=== PATIENT | female | born 1980 | race Caucasian/White ===

== ENCOUNTER 2021-04-10 07:00 | Emergency (ER) | payer OTHER, SELFPAY ==
[2021-04-10 07:04] VITALS: BP 130/78; PULSE 78; RESP 18; TEMP 36.9; O2SAT 98; BMI 35.9
--- NOTE | 2021-04-10 07:28 | US_ITS ---
STUDY: ABDOMINAL ULTRASOUND - RIGHT UPPER QUADRANT REASON FOR VISIT: Female, 40 years old right upper quadrant pain. TECHNIQUE: Ultrasound evaluation of the right upper quadrant was performed with real-time and static beltran-scale imaging. TECHNICAL QUALITY: Adequate. COMPARISON: None. FINDINGS: Liver: The liver is enlarged and measures 18.7 cm. There is normal echogenicity of the liver. The bile ducts are within normal limits. There is hepatic color flow. The direction of portal flow is hepatopetal. There is no demonstrated mass lesion. Gallbladder: Normal distended gallbladder. The gallbladder wall measures 1.9 mm. There is a negative sonographic Loaiza''s sign. There is no pericholecystic fluid. There are no gallstones. Common Bile Duct (C.B.D.): The common bile duct measures 2.6 mm. Pancreas: Normal size of the head, body and tail of the pancreas. There is normal echogenicity of the pancreas. There is no demonstrated pancreatic mass or cyst. Right Kidney: Normal size of the right kidney. The right kidney measures 12.2 cm x 4.5 cm x 4.3 cm. Normal renal cortex. The right cortex measures 1.3 cm. There is no demonstrated renal mass or cyst. There is no right hydronephrosis. US/Gallbladder IMPRESSION: Hepatomegaly. Electronically Signed: Blayne Whiting MD at 8:41 EST , Service support ,
--- NOTE | 2021-04-10 07:30 | ED.VIS.GI ---
HPI HPI - GI History of Present Illness Chief Complaint: Abd Pain Informant: patient Abdominal Pain/Flank Pain Onset: Days (5) Context: Gradual Onset Timing: Continuous Quality: Dull and Sharp Location: RUQ Worsened by: Food Relieved by: Nothing Nausea/Vomiting/Emesis GI Symptom: Positive for Nausea; Negative for Vomiting Diarrhea/Melena/Hematochezia GI Symptom: Positive for Diarrhea; Negative for Melena and Hematochezia Associated Symptoms Associated Symptoms: Negative for Dysuria and Hematuria Narrative Narrative: Patient with right upper quadrant abdominal pain that has been constant for the past 2 days. Patient states it has been intermittent for the 3 days prior to that. Patient states it is worse whenever she eats. Patient states the pain radiates into her back. Patient states her pain is a constant ache but sharp at times. Patient admits to nausea but denies any vomiting. Patient admits to some diarrhea. Patient denies any melena or hematochezia. Patient denies any dysuria or hematuria. [facility] Medical History Asthma Endometriosis Home Medications Clarinex 04/10/21 [History Last Taken Unknown] Crestor 04/10/21 [History Last Taken Unknown] Singulair 04/10/21 [History Last Taken Unknown] Vitamin D3 04/10/21 [History Last Taken Unknown] Zoloft 04/10/21 [History Last Taken Unknown] azelastine INTRANASAL 04/10/21 [History Last Taken Unknown] fluticasone propionate INTRANASAL 04/10/21 [History Last Taken Unknown] fluticasone propionate INTRANASAL 04/10/21 [History Last Taken Unknown] omeprazole 20 mg PO DAILY #30 capsule 04/10/21 [Rx Last Taken Unknown] ondansetron 4 mg PO Q8H PRN PRN #10 tab 04/10/21 [Rx Last Taken Unknown] Allergy/AdvReac Type Severity Reaction Status Date / Time sulfamethoxazole Allergy Angioedema Verified 04/10/21 07:08 [From Bactrim] trimethoprim [From Bactrim] Allergy Angioedema Verified 04/10/21 07:08 Surgical History H/O laparoscopy Social History (Updated 04/10/21 @ 07:[address] Kranthi Martins DO) Smoking Status: Never smoker alcohol intake: current alcohol intake frequency: a few times a month ROS ROS ED Constitutional Constitutional ED: Denies chills or fever(s) Eyes Eyes: Denies blurry vision or change in vision ENT ENT ED: Denies rhinorrhea or sore throat Cardiovascular Cardiovascular: Denies chest pain or palpitations Respiratory/Chest Respiratory/Chest: Denies cough or dyspnea Gastrointestinal Gastrointestinal: Reports abdominal pain, diarrhea and nausea; Denies vomiting Genitourinary Genitourinary ED: Denies dysuria or hematuria Musculoskeletal Musculoskeletal: Denies back pain or neck pain Integumentary Denies abscess or rash Neurologic Neurologic: Denies headache(s) or weakness Allergic/Immunologic Allergic/Immunologic ED: Denies mouth swelling or urticaria EXAM Physical Exam Const Vital Signs: 04/10/21 07:04 04/10/21 07:43 04/10/21 09:22 Temperature 98.5 F Temperature Source Temporal Pulse Rate 78 87 69 Respiratory Rate 18 18 18 Blood Pressure 130/78 H 128/74 H 126/84 H Blood Pressure Mean 95 92 98 Pulse Ox 98 99 97 Oxygen Delivery Method Room Air Room Air Room Air Positive well nourished and well developed General Appearance ED: well developed HEENT Reports moist mucous membranes Neck supple and no JVD Resp normal respiratory effort and clear to auscultation bilaterally Cardio regular rate, regular rhythm and no murmurs GI normal to inspection, nondistended, normoactive bowel sounds Palpation: soft and tender RUQ; Negative for guarding or rebound tenderness present Extremity normal to inspection General Extremety ED: Negative for edema or tenderness General Extremity: Negative for edema Neuro oriented x3, CN's II-XII intact bilaterally and no sensory deficits noted Sensorium / Orientation: alert Motor Exam: strength 5/5 throughout Psych mental status grossly normal Skin no rashes or lesions noted MDM MDM MDM Narrative Medical decision making narrative: Patient was given IV fluids, morphine, and Zofran. CBC was within normal limits. Comprehensive metabolic profile was within normal limits. Lipase was normal. Urinalysis does not show any evidence of urinary tract infection. Right upper quadrant ultrasound was obtained. There is hepatomegaly noted. There is a normal gallbladder. There is no wall thickening. There is no Loaiza sign noted. There is no pericholecystic fluid. There are no gallstones noted. There is no ductal dilatation noted. Patient is feeling better on reevaluation. Patient was advised of her findings. Patient was instructed to follow-up with her primary care physician for further evaluation in 3 to 5 days. Patient was instructed to eat a bland diet and advance as tolerated. Patient was given a prescription for omeprazole and Zofran. Patient was instructed to return if worse in any way. Patient understood and was agreeable with the plan. All questions were answered. Lab Data Attestation: I reviewed the patient's lab results. Labs: Laboratory Results - last 24 hr 04/10/21 04/10/21 04/10/21 07:05 07:05 07:50 WBC 8.2 RBC 4.54 Hgb 13.3 Hct 41.4 MCV 91.2 MCH 29.3 MCHC 32.1 RDW Std Deviation 40.8 RDW Coeff of Scot 12.1 Plt Count 377 MPV 8.8 Immature Gran % (Auto) 0.400 Neut % (Auto) 57.4 Lymph % (Auto) 30.2 [place] % (Auto) 8.1 Eos % (Auto) 3.2 Baso % (Auto) 0.7 Absolute Neuts (auto) 4.7 Absolute Lymphs (auto) 2.47 Nucleated RBC % 0 Sodium 139 Potassium 3.7 Chloride 106 Carbon Dioxide 24.0 Anion Gap 9 BUN 7 Creatinine 0.68 Estim Creat Clear Calc 103.98 Est GFR (MDRD) Af Amer 122 Est GFR (MDRD) Non-Af 101 BUN/Creatinine Ratio 10.2 Glucose 90 Calcium 8.7 Total Bilirubin 0.40 AST 12 L ALT 15 Alkaline Phosphatase 45 Total Protein 7.4 Albumin 3.3 Globulin 4.1 Albumin/Globulin Ratio 0.8 L Lipase 71 L Urine Color Yellow Urine Clarity Sl. Cloudy Urine pH 8.0 Ur Specific [place] 1.010 Urine Protein 15 H Urine Glucose (UA) Normal Urine Ketones Negative Urine Occult Blood 25 H Urine Nitrite Negative Urine Bilirubin Negative Urine Urobilinogen Normal Ur Leukocyte Esterase 25 H Urine RBC 0-5 SEEN Urine WBC 0-5 SEEN Ur Squamous Epith Cells 5-10 SEEN Urine Bacteria 1+ Urine Mucus 0 SEEN Radiography Diagnostic Testing: Clinical Impression(s) from Imaging Studies Gallbladder Ultrasound 04/10/21 07:28 IMPRESSION: Hepatomegaly. Electronically Signed: Blayne Whiting MD at 8:41 EST , Service support , Discharge Plan Triage Chief Complaint: Abd Pain ED Provider: Kranthi Martins Dx/Rx/DC Orders Clinical Impression: Right upper quadrant abdominal pain Instructions: ED Abdominal Pain Unkn Cause Fem Prescriptions: New omeprazole [omeprazole] 20 MG capsule 20 mg PO DAILY Qty: 30 RF: 0 ondansetron [ondansetron] 4 MG tablet 4 mg PO Q8H PRN PRN (Reason: Nausea) Qty: 10 RF: 0 No Action azelastine 137 mcg (0.1 %) aerosol,spray INTRANASAL RF: 0 fluticasone propionate 50 mcg/actuation spray,suspension INTRANASAL RF: 0 fluticasone propionate 50 mcg/actuation spray,suspension INTRANASAL RF: 0 Clarinex RF: 0 Crestor RF: 0 Singulair RF: 0 Vitamin D3 RF: 0 Zoloft RF: 0 Primary Care Provider: Monalisa Palomares NP Referrals: Monalisa Palomares NP, [employer] [Primary Care Provider] - 3-5 Days Disposition Disposition: Home, Self Care
[2021-04-10] MEDS: 0.9% Normal Saline 1,000 ML 1000 ML IV (07:36)
[2021-04-10 07:40] LABS: Absolute Lymphocyte Count 2.47 X10^3/uL (0.83-4.51); Absolute Neutrophil Count 4.7 X10^3/uL (2.0-7.7); Basophil# 0.06 X10^3/uL; Basophil% 0.7 % (0-1); Eosinophil# 0.26 X10^3/uL; Eosinophils% 3.2 % (0-5); Hematocrit 41.4 % (37-47); Hemoglobin 13.3 g/dL (12.0-15.0); Lymphocyte # 2.47 X10^3/ul (0.83-4.51); Lymphocyte % 30.2 % (19-41); Mean Corp Hgb Conc 32.1 g/dL (32-36); Mean Corpuscular Hgb 29.3 pg (27.0-32.0); Mean Corpuscular Volume 91.2 fL (81-99); Mean Platelet Vol. 8.8 fl (6.2-12.0); Monocyte# 0.66 X10^3/uL; Monocyte% 8.1 % (0-10); NRBC Flagged by Analyzer 0 % (0-5); Neutrophil % 57.4 % (47-70); Platelet Count 377 K/mm3 (150-450); RBC Distribution Width CV 12.1 % (11.6-14.6); RBC Distribution Width SD 40.8 fl (35.1-43.9); Red Blood Count 4.54 M/mm3 (4.2-5.4); White Blood Count 8.2 K/mm3 (4.4-11.0)
[2021-04-10] MEDS: Ondansetron 4 MG/2 ML Vial IV (07:42)
[2021-04-10] MEDS: Morphine 4 MG/ML Syringe IV (07:42)
[2021-04-10 07:43] VITALS: BP 128/74; PULSE 87; RESP 18; O2SAT 99
[2021-04-10 07:55] LABS: Mucous, Urine 0 SEEN /hpf (<or=2+)
[2021-04-10 07:57] LABS: ALB/GLOB Ratio 0.8 RATIO (0.9-2.4); AST(SGOT) 12 U/L (15-37); Alanine Aminotransfer ALT/SGPT 15 U/L (13-56); Albumin, Serum 3.3 g/dL (3.2-5.0); Alkaline Phosphatase 45 U/L (45-117); Anion Gap 9 (5-15); BUN 7 mg/dL (7-18); BUN/Creat Ratio 10.2 RATIO (10-20); Calcium,Total 8.7 mg/dL (8.5-10.1); Chloride 106 mmol/L (98-107); Creatinine, Serum 0.68 mg/dL (0.55-1.02); EST Glomerular Filtration Rate 101 mL/min (>60); Est Glom Filt Rate - Afr Amer 122 mL/min (>60); Estimated Creatinine Clearance 103.98 ml/min; Globulin 4.1 g/dL (2.2-4.2); Glucose 90 mg/dL (74-106); Lipase 71 U/L (73-393); Potassium 3.7 mmol/L (3.5-5.1); Protein, Total 7.4 g/dL (6.4-8.2); Sodium Level 139 mmol/L (136-145)
[2021-04-10 08:07] LABS: Color, Urine Yellow (Yellow); Glucose, Dipstick Normal (Normal); Ketone-Dipstick Negative (Negative); Leukocyte Esterase-Dipstick 25 /ul (Negative); Nitrite-Dipstick Negative (Negative); Occult Blood-Urine 25 /ul (Negative); Protein-Dipstick 15 mg/dl (Negative); Urine Bilirubin Dipstick Negative (Negative); Urine Clarity Sl. Cloudy (Clear); Urine Urobilinogen Normal (Normal)
[2021-04-10 08:24] LABS: Bacteria 1+ /hpf (None Seen); Red Blood Cells-Urine 0-5 SEEN /hpf (0-5); Squamous Epithelial Cells - UA 5-10 SEEN /hpf (5-10); White Blood Cells 0-5 SEEN /hpf (0-5)
[2021-04-10 09:22] VITALS: BP 126/84; PULSE 69; RESP 18; O2SAT 97
[2021-04-10 10:14] VITALS: PULSE 72; RESP 18
== END 2021-04-10 10:14 | disposition home or self-care (01) ==
PROVIDERS: Emergency Provider Emergency Medicine; PCP Nurse Practitioner Primary Care
DX: R10.11 Right upper quadrant pain (principal); R16.0 Hepatomegaly, not elsewhere classified; R11.0 Nausea; R19.7 Diarrhea, unspecified; J45.909 Unspecified asthma, uncomplicated
CPT/HCPCS: 76705; 80053; 81001; 83690; 85025; 96361; 96374; 96375; 99283; J7030; J2405

== ENCOUNTER 2021-09-16 16:16 | Outpatient (CLI) | payer OTHER, SELFPAY ==
[2021-09-16 18:23] LABS: CRP 4.87 mg/L (0.0-3.0); T4 Total, Thyroxin 12.1 ug/dL (4.8-13.9); Thyroid Stim Hormone (TSH) 1.22 uIU/mL (0.358-3.74)
[2021-09-18 16:09] LABS: Endomysial Antibody IgA Negative (Negative)
[2021-09-18 18:55] LABS: Immunoglobulin A 189 mg/dL (87-352); t-Transglutaminase IgA <2 U/mL (0-3)
== END 2021-09-16 23:59 | disposition home or self-care (01) ==
LOC: MTLAB 16:17
PROVIDERS: PCP Nurse Practitioner Primary Care; Referring Provider Internal Medicine Gastroenterology; Visit Provider Internal Medicine Gastroenterology
DX: R19.7 Diarrhea, unspecified (principal)
CPT/HCPCS: 36415; 82784; 83516; 84436; 84443; 86140; 86255

== ENCOUNTER 2022-12-14 08:00 | Outpatient (RCR) | payer OTHER, SELFPAY ==
--- NOTE | 2022-11-27 16:00 | HP.SP.EV_ITS ---
History History Date of Eval: 11/27/22 Attending Doctor: Referring Doctor: Reason for Referral: DYSPHONIA/RX HERE Medical Diagnosis (from RX): Dysphonia Previous speech therapy: No Other Relevant Medical History/Diagnoses/Surgery: ROBERTO GASCA is a 42 year old female who presents to [facility] on 11/27/22 following a referral from ENT d/t dx of dysphonia. Roberto attending session alone and served as historian. Roberto reporting recent hoarseness, strain, and raspiness following her recent participation in singing with the [employer]. 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 She reports warm ups start at 0700, they have one service, there is a break, and then a second service. Roberto with a hx of asthma and sleep apnea - has a CPAP with a humidifier but uses sparingly. She also has a hx of GERD and takes a PPI. She endorses having to project her voice at home d/t having two s ons and an overall loud household. She sucks on lozenges when her throat feels dry and also uses a numbing spray when her throat feels raspy and in pain. Roberto reports recently having PE tubes placed which has been helpful in improving her hearing and has allowed her to hear her voice at the true volume and also begin breathing through her nose - she used to breathe through her mouth. She also had surgery to correct a deviated septum which has also improved her ability to breathe through her nose. Today is the first time she has participated in speech therapy. Smoking Status: Never smoker Pain Is pain an issue with your current prescribed condition?: No Personal Preferred language: Citizen Of [place] Patient Allergies Allergies Allergies: Allergies sulfamethoxazole [From Bactrim] Allergy (Verified 04/10/21 07:08) Angioedema trimethoprim [From Bactrim] Allergy (Verified 04/10/21 07:08) Angioedema * Pediatric & Adult patients Adult Subjective Voice Informal Questioner Do you scream (anger, sporting event, work, noisy envirmonment): Less than average Do you raise your voice (e.g. parenting, calling from room to room, etc.): Average Do you talk for long periods of time without a break (teacher, woodard): More than average Are you a talker: Average Do you clear your throat: More than average Do you cough: Average Do you sing: More than average How often do you use the telephone: Less than average Do you do impersonations, character voices or unusual sound effects: None Intubation Was the Client intubated: No Intake Coffee (ounces): 40 Alcoholic Beverage Intake Intake: Rarely Objective Voice Observational Assessment Pitch Range in octaves: 2 Maximum Phonation Time in seconds: 6.3 S/Z Ratio: 1.59 Sustained /s/: 10.67 Sustained /z/: 6.67 Greater than 1:4 (indicates dysfunction): Yes CAPE-V CAPE-V CAPE-V Administered: Yes CAPE: The Consensus Auditory-Perceptual Evaluation of Voice (CAPE-V) was developed as a tool for clinical auditory-perceptual assessment of voice. Its primary purpose is to describe the subjective severity of auditory-perceptual attributes of a voice problem, in a way that can be communicated among clinicians. Its secondary purpose is to contribute to hypotheses regarding the anatomic and physiological bases of voice problems and to evaluate the need for additional testing. In terms of severity, Pt is considered MILD between 0-40, MODERATE 40-75, and SEVERE >75. Date: 11/27/22 Overall Severity Overall Severity (n/100): 80 Frequency: Consistent Roughness Roughness (n/100): 85 Frequency: Consistent Breathiness Breathiness (n/100): 65 Frequency: Intermittent Strain Strain (n/100): 95 Frequency: Consistent Pitch Pitch (n/100): 45 Frequency: Consistent Loudness Loudness (n/100): 10 Frequency: Intermittent Comments Vocal Tasks: -: - During vocal tasks, Pt reporting having posterior neck pain when completing low to high pitch glide when reaching the upper register. Denying pain when going from high to low glide. - During a second vocal task of prolonged phonation, Pt using a softer amplitude than her speaking voice observed throughout evaluation however was only able to sustain phonation for an average of 6.3 seconds before ending. It would be suspected given her hx of singing, she would have prolonged closer to 15 seconds which is typical for adults to achieve. When asked how she is able to phrase when singing, Roberto reporting depending on the song she can sustain phonation between 2-3 measures before needing to breathe. Pending the song, a typical adult can sustain 4 measures. - Roberto reports drinking at least 40 oz of coffee throughout the day. On Sundays when she is singing, she will have coffee before she sings, in between services, and potentially again afterwards. Direct education provided re: attempting to substitute water for the coffee to help rehydrate her vocal folds before and during the singing. Pt showing understanding of education. - Roberto endorsing tension in her neck and shoulders. She states she often will hunch her shoulders when she is singing or sitting in a chair in order to hide her bust. 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 Education: -: Direct education provided re: vocal abuse behaviors such as habitual throat clearing, straining when singing, chest breathing vs. diaphragmatic breathing, consumption of dairy-related snacks throughout the day, limited water intake, and increased coffee intake with no balance of water intake. Roberto showing understanding of education. She was reassured all of these changes are not expected to occur at one time which helped ease her nerves. Roberto endorsing pitch breaks when she attempts to hit lower notes following a period of long vocal use. Roberto confirms using a microphone when singing at [employer] and most recently with her PE tube placement feels like she is not projecting as much. Roberto reporting it will usually take her 5 days to recover her voice after singing for [employer] on Sundays - she reports usually feeling better by the following Wednesday. She also reports at times she will strain her voice to reach pitches outside of her range. Provided education that straining is considered a vocal abuse behavior and until she builds up her range it would be beneficial for her voice to stay in a comfortable pitch range. ENT Report: -: Roberto reports the ENT stating no physical abnormalities with her vocal cords. Visit note was provided at the evaluation, however no exam report of the flexible laryngoscopy. Plan to acquire in future visits. Reference: Neuro-QoL instrument Radiation Oncology Patient Plan Plan Plan: Will recommend Roberto for skilled outpatient speech therapy to address mild-moderate deficits in vocal function characterized by dysphonia, vocal tension, and impaired volitional control of respiration. Roberto would benefit from training in identifying instances of vocal abuse, providing vocal hygiene solutions, training in diaphragmatic breathing, and voice facilitation training. Without skilled speech therapy Pt is at risk for continued vocal abuse, chronic hoarseness, and feelings of isolation in a variety of social situations. Recommendations Treatment Warranted: Yes Treatment Warranted: Voice Progress Prognosis: Excellent Frequency Frequency: 1x/Week Duration: 2 Months Goals that are Established Determination:: Goals will be added/modified as deemed necessary and appropriate. Therapy will be discontinued when results of re-evaluation indicate therapy is no longer needed or lack of progress has been documented. Goal #1-5 Goal #1: Roberto will establish volitional control of respiration evidenced by utilization of diaphragmatic breathing to perform sustained phonation tasks including but not limited to holding ah for 15 seconds or 4 bar phrasing within 6 weeks independently. Goal #2: Roberto will utilize voice facilitation and resonance training to reduce hoarseness and vocal recovery period to 1 day within 6 weeks. Goal #3: To reduce vocal fold tension, Roberto will demonstrate relaxation techniques with greater than 90% acc independently. Goal #4: Roberto will demonstrate understanding of behaviors that impact vocal hygiene by charting frequency of instances of unhealthy vocal behaviors (loud talking, throat clearing, coffee intake) as they occur throughout the session/day in 4/5 occurrences independently for 6 weeks of therapy. Education Patient has Indicated that the Following Identified Educational Needs: None The Patient has indicated that they have no educational or learning abilities that may effect their care.: Yes Patient Instruction Patient Education: Diagnosis, Treatment Plan, Goals, Safety Precautions and Home Exercise Program Other Education: See above. Person Taught: Patient Teaching Method: Discussion, Demonstration and Handout Response to teaching: Return demonstration and Verbalize understanding
--- NOTE | 2022-12-14 09:18 | HP.SP.DC_ITS ---
ST Discharge Summary Discharged: Discharge: ROBERTO GASCA is a 42 year old female [facility] d/t concerns with vocal hoarseness. Pt participated in 3 additional sessions targeting diaphragmatic breathing, resonance exercises, and education on vocal health and vocal abuse behaviors. Pt showing competence in education and performing HEP and is appropriate for d/c. Recommending Pt seek vocal lessons to continue with healthy vocal habits and improving overall singing strength. Pt being discharged from speech therapy caseload on this date, 12/14/22, secondary to meeting therapy goals. Thank you for allowing me to participate the care of your Pt. Will reevaluate at Pt?s request following script from physician.
== END 2022-12-14 19:00 | disposition home or self-care (01) ==
LOC: SP 08:00
PROVIDERS: PCP Nurse Practitioner Primary Care; Referring Provider Otolaryngology; Visit Provider Otolaryngology
DX: R49.0 Dysphonia (principal)
CPT/HCPCS: 92507; 92524

== ENCOUNTER → 2023-03-04 | Outpatient (CLI) | payer BC, SELFPAY ==
[2023-03-04 16:43] LABS: Absolute Lymphocyte Count 3.16 X10^3/uL (0.83-4.51); Absolute Neutrophil Count 8.9 X10^3/uL (2.0-7.7); Basophil# 0.07 X10^3/uL; Basophil% 0.5 % (0-1); Eosinophil# 0.19 X10^3/uL; Eosinophils% 1.4 % (0-5); Hematocrit 42.5 % (37-47); Hemoglobin 13.5 g/dL (12.0-15.0); Lymphocyte # 3.16 X10^3/ul (0.83-4.51); Lymphocyte % 23.3 % (19-41); Mean Corp Hgb Conc 31.8 g/dL (32-36); Mean Corpuscular Hgb 29.7 pg (27.0-32.0); Mean Corpuscular Volume 93.4 fL (81-99); Mean Platelet Vol. 8.9 fl (6.2-12.0); Monocyte# 1.18 X10^3/uL; Monocyte% 8.7 % (0-10); NRBC Flagged by Analyzer 0 % (0-5); Neutrophil # 8.88 X10^3/uL (2.7-7.7); Neutrophil % 65.7 % (47-70); Platelet Count 411 K/mm3 (150-450); RBC Distribution Width CV 12.4 % (11.6-14.6); RBC Distribution Width SD 42.7 fl (35.1-43.9); Red Blood Count 4.55 M/mm3 (4.2-5.4); White Blood Count 13.5 K/mm3 (4.4-11.0)
[2023-03-04 18:10] LABS: Thyroid Stim Hormone (TSH) 1.08 uIU/mL (0.358-3.74)
== END | disposition home or self-care (01) ==
LOC: LAB 16:10
PROVIDERS: PCP Nurse Practitioner Primary Care; Referring Provider Advanced Practice Midwife; Visit Provider Advanced Practice Midwife
DX: Z13.29 Encounter for screening for other suspected endocrine disorder (principal); N80.9 Endometriosis, unspecified
CPT/HCPCS: 36415; 84443; 85025

== ENCOUNTER → 2023-04-21 | Outpatient (CLI) | payer BC, SELFPAY ==
--- NOTE | 2023-04-21 10:46 | US_ITS ---
EXAM: US PELVIS TRANSVAGINAL CLINICAL INDICATION: abnormal menses TECHNIQUE: Transvaginal pelvic ultrasound was performed with grayscale and color Doppler imaging. Transvaginal imaging was used for better evaluation of the endometrium and adnexa. COMPARISON: No relevant prior studies available. FINDINGS: UTERUS/CERVIX: Retroverted. There 8.8 cm x 4.3 centimeters by 6.1 cm. No discrete uterine mass is measured but there is heterogeneous mottled appearance of the fundus suggesting fibroid of roughly 2.1 cm x 2.2 cm. Not well seen.. Normal 5.3 mm endometrial stripe thickness the fundus, with a slight amount of anechoic fluid in the endometrium in the proximal uterus. RIGHT OVARY: Unremarkable. 2.6 cm x 1.2 cm x 2.3 cm with tiny follicles. Non-enlarged, normal echogenicity. Blood flow is present in the right ovary. LEFT OVARY: 2 cm x 3.2 cm x 1.9 cm with tiny follicles and a dominant mildly complex follicle of 1 cm x 0.9 cm x 1.1 cm. This has slight low level echoes and slightly irregular thick margins. Likely hemorrhagic follicle or endometrioma. Blood flow is present in the left ovary. FREE FLUID: Trace cul-de-sac fluid. BLADDER: Empty bladder which cannot be evaluated with this probe. US/Transvaginal Non- IMPRESSION: Suspicion of fundal uterine fibroid, not well seen. Mildly complex dominant follicle in the left ovary, measuring 1.1 cm maximum diameter with low level echoes and mildly thick wall. The primary considerations are hemorrhagic dominant follicle or endometrioma. Not particularly suspicious by size criteria. Electronically Signed: Mimi Walker MD at 8:51 EST ,
== END | disposition home or self-care (01) ==
PROVIDERS: PCP Nurse Practitioner Primary Care; Referring Provider Advanced Practice Midwife; Visit Provider Advanced Practice Midwife
DX: N80.9 Endometriosis, unspecified (principal)
CPT/HCPCS: 76830

== ENCOUNTER → 2023-06-01 | Outpatient (CLI) | payer BC, SELFPAY ==
--- NOTE | 2023-06-01 10:06 | US_ITS ---
EXAM: US PELVIS TRANSVAGINAL CLINICAL INDICATION: cyst follow up TECHNIQUE: Transvaginal pelvic ultrasound was performed with grayscale and color Doppler imaging. Transvaginal imaging was used for better evaluation of the endometrium and adnexa. COMPARISON: 04/21/2023 FINDINGS: UTERUS/CERVIX: Uterus measures 9.7 x 4.3 x 5.7 cm. The endometrium measures 4 mm. RIGHT OVARY: The right ovary measures 3.1 x 1.2 x 1.9 cm. Blood flow is present in the right ovary. LEFT OVARY: The left ovary measures 2.0 x 1.8 x 1.9 cm. There is a 0.9 x 0.7 x 1.2 cm cyst in the left ovary. There is a heterogeneous area in the fundus possibly representing a fibroid. Blood flow is present in the left ovary. FREE FLUID: None. BLADDER: Empty bladder which cannot be evaluated with this probe. US/Transvaginal Non- IMPRESSION: Left ovarian cystic structure which may represent a follicle or cyst is not significantly changed from the reference exam. Heterogeneous area in the fundus of uterus is again present possibly representing a fibroid. There has been no change from the reference exam. Electronically Signed: Aaron Morton MD at 23:03 EST ,
--- OUTSIDE RECORDS SUMMARY | 2023-06-01 10:34 | XMS RPT_ITS | CCD ---
Author Name Unknown Address [id number] [place] [address] Organization [facility] Care Team Providers Care Underwriter Solicitation Director Name Role Phone Sophia Medellin Primary Care Provider DR SOPHIA MEDELLIN MD Primary Care Physician JASON ALBERTO, SILAS Primary Care Physician Sophia Medellin MD Primary Care Provider Unavailable Primary Care Provider GIOVANNI Garrett DO Primary Care Physician [phone] JASON ALBERTO, SILAS Primary Care Nj ALBERTO, SILAS Attending Nj ALBERTO, DEB Attending GOIVANNI Garrett DO Primary Care Unavailable GIOVANNI MALDONADO DO Primary Care Unavailable [place] REMY, DEB Attending GIOVANNI Garrett DO Primary Care Unavailable [place] REMY, DEB Attending Mike ALBERTO, SILAS Primary Care Nj ALBERTO, SILAS Attending Nj goel Allergies Allergy Classification Reported Allergen(s) Allergy Type Date of Onset Reaction(s) Facility Sulfamethoxazole / Trimethoprim (3 sources) Sulfamethoxazole / Trimethoprim Drug Allergy 06-17-19 16 Sw[facility] ([facility] rosuvastatin Drug Allergy 01-03-20 19 Rash [place], [place] (18 sources) Sulfamethoxazole / Trimethoprim; Translations: [sulfamethoxazole-t rimethoprim] Drug Allergy 06-17-19 16 [place], [place] (6 sources) seasonal enviromental Allergy to substance typical [facility] (2 sources) Doxycycline; Translations: [doxycycline] Drug Allergy Chest pain (finding) [facility] [place] (2 sources) FLUoxetine; Translations: [fluoxetine] Drug Allergy Upset stomach (finding) [facility] [place] Medications Current Medications Medication Drug Class(es) Dates Sig (Normalized) Sig (Original) Afrin 0.05% nasal Mist (4 sources) Start: 11-22-2020 take 1 dose nasal route twice daily as needed Afrin 0.05% nasal Mist Dose = 2 spray(s), Nostril, each, BID, PRN Sinus symptoms, 0 Refill(s) Start Date: 11/22/20 Status: Ordered [id number] 200 actuat albuterol 0.09 mg/actuat metered dose inhaler (14 sources) beta2-Adrenergic Agonist Start: 06-24-2020 take 2 puff(s) by inhalation every six hours as needed for wheezing albuterol sulfate HFA (VENTOLIN HFA) 108 (90 Base) MCG/ACT inhaler Indications: Mild intermittent asthma without complication Inhale 2 puffs into the lungs every 6 hours as needed for Wheezing 1 Inhaler 5 06/24/2020 Active Completed/Discontinued Medications Medication Drug Class(es) Dates Sig (Normalized) Sig (Original) acetaminophen 500 mg oral tablet (1 source) Start: 11-06-2021 End: 11-06-2021 acetaminophen (TYLENOL) tablet 1,000 mg acetaminophen 325 mg / HYDROcodone bitartrate 5 mg oral tablet (3 sources) Opioid Agonist Start: 04-22-2021 End: 04-25-2021 take 1 tablet by mouth every four hours as needed for pain [place] 325- 5 mg oral tablet Dose = 1 tab(s), Oral, q4hr, PRN as needed for pain, # 10 tab(s), 0 Refill(s), Pain radiating to right flank Acute post-operative pain Start Date: 04/22/21 Stop Date: 04/25/21 Status: Ordered Problems Active Problems Problem Classification Problem Date Documented Da te Episodic/Chronic Anxiety disorders (12 sources) Anxiety; Translations: [Anxiety disorder, unspecified] Onset: 08-04-2018 08-04-2018 Chronic Asthma (20 sources) Mild intermittent asthma; Translations: [Mild intermittent asthma, uncomplicated] Onset: 06-17-2015 06-17-2015 Chronic Attention-deficit, conduct, and disruptive behavior disorders (3 sources) Adult attention deficit hyperactivity disorder 03-13-2022 Chronic Deficiency and other anemia (1 source) Anemia 03-10-2023 Episodic Diabetes mellitus without complication (4 sources) Prediabetes 10-29-2021 Episodic Disorders of lipid metabolism (17 sources) Hyperlipidemia; Translations: [Hyperlipidemia, unspecified] Onset: 12-09-2018 12-09-2018 Chronic Genitourinary symptoms and ill-defined conditions (2 sources) Unspecified symptoms and signs involving the genitourinary system; Translations: [Unspecified symptoms and signs involving the genitourinary system] Onset: 05-20-2023 Episodic Inflammatory diseases of female pelvic organs (6 sources) Endometritis 07-18-2021 Episodic Mood disorders (20 sources) Recurrent major depression in partial remission; Translations: [Major depression, single episode] Onset: 11-18-2016 Resolved: 12-09-2018 12-09-2018 Chronic Nonspecific chest pain (2 sources) Chest wall pain; Translations: [Other chest pain] Onset: 04-26-2022 Episodic Other connective tissue disease (6 sources) Pelvic floor dysfunction 07-18-2021 Episodic Other endocrine disorders (6 sources) Hypoglycemia 07-18-2021 Chronic Other female genital disorders (8 sources) Pain in female genitalia on intercourse; Translations: [Unspecified dyspareunia] Onset: 01-08-2020 01-08-2020 Chronic Other gastrointestinal disorders (1 source) Irritable bowel syndrome 03-10-2023 Chronic Other lower respiratory disease (2 sources) Rib pain; Translations: [Pleurodynia] Episodic Other lower respiratory disease (2 sources) Multiple nodules of lung; Translations: [Other nonspecific abnormal finding of lung field] Episodic Other nervous system disorders (1 source) Postoperative pain ; Translations: [Other acute postprocedural pain] Onset: 04-22-2021 Episodic Other nutritional; endocrine; and metabolic disorders (4 sources) Body mass index 30+ - obesity 10-29-2021 Chronic Other nutritional; endocrine; and metabolic disorders (1 source) Morbid obesity 03-10-2023 Chronic Other skin disorders (1 source) Acne 03-10-2023 Episodic Other upper respiratory disease (11 sources) Allergic rhinitis; Translations: [Allergic rhinitis, unspecified] Onset: 01-21-2016 01-21-2016 Chronic Other upper respiratory disease (1 source) Seasonal allergy 03-10-2023 Chronic Residual codes; unclassified (8 sources) Obstructive sleep apnea syndrome; Translations: [Obstructive sleep apnea (adult) (pediatric)] Onset: 01-08-2020 01-08-2020 Chronic Residual codes; unclassified (1 source) Pain; Translations: [Pain, unspecified] Onset: 04-20-2021 Episodic Residual codes; unclassified (1 source) Family history of breast cancer 03-10-2023 Episodic Screening and history of mental health and substance abuse codes (1 source) Tobacco use and exposure - finding 03-10-2023 Chronic Suicide and intentional self-inflicted injury (1 source) H/O: attempted suicide 03-10-2023 Episodic Past or Other Problems Problem Classification Problem Date Documented Da te Episodic/Chronic Chronic obstructive pulmonary disease and bronchiectasis (8 sources) Bronchitis; Translations: [Bronchitis, not specified as acute or chronic] Onset: 08-08-2020 08-08-2020 Episodic Other upper respiratory infections (8 sources) Acute pharyngitis; Translations: [Acute pharyngitis due to other specified organisms] Onset: 08-08-2020 08-08-2020 Episodic Pneumonia (except that caused by tuberculosis or sexually transmitted disease) (1 source) Infective pneumonia; Translations: [Pneumonia due to organism] Episodic Results Test Name Value Interpretation Reference Range Facil ity Vital Signs Date Time Vital Sign Value Performing Clinician Reymundo roberto 04-26-2022 00:39-0500 Body temperature 98.06 [degF] AZRA DIAZ MD [facility] 04-26-2022 00:39-0500 Diastolic Blood Pressure Non-Invasive 77 1 AZRA DIAZ MD [facility] 04-26-2022 00:39-0500 Heart rate 96 /min AZRA DIAZ MD [facility] 04-26-2022 00:39-0500 Respiratory rate 18 /min AZRA DIAZ MD [facility] 04-26-2022 00:39-0500 Systolic Blood Pressure Non-Invasive 129 1 AZRA DIAZ MD [facility] 11-06-2021 11:45-0400 Diastolic blood pressure 74 mm[Hg] [facility] Work Phone: [facility] 11-06-2021 11:45-0400 Heart rate 84 /min [facility] Work Phone: [facility] 11-06-2021 11:45-0400 Respiratory rate 18 /min [facility] Work Phone: [facility] 11-06-2021 11:45-0400 Systolic blood pressure 132 mm[Hg] [facility] Work Phone: [facility] 11-06-2021 11:30-0400 SaO2% (BldA) [Mass fraction] 96 % [facility] Work Phone: [facility] 11-06-2021 10:57-0400 Body temperature 98.71 [degF] [facility] Work Phone: [facility] 04-22-2021 20:08-0500 Body temperature 96.98 [degF] RADHA ALCANTAR MD [facility] 04-22-2021 20:08-0500 Diastolic blood pressure 71 mm[Hg] RADHA ALCANTAR MD [facility] 04-22-2021 20:08-0500 Heart rate 88 /min RADHA ALCANTAR MD [facility] 04-22-2021 20:08-0500 Respiratory rate 16 /min RADHA ALCANTAR MD [facility] 04-22-2021 20:08-0500 Systolic blood pressure 117 mm[Hg] RADHA ALCANTAR MD [facility] 04-22-2021 19:05-0500 Body temperature 97.52 [degF] RADHA ALCANTAR MD [facility] 04-22-2021 19:05-0500 Diastolic blood pressure 64 mm[Hg] RADHA ALCANTAR MD [facility] 04-22-2021 19:05-0500 Heart rate 86 /min RADHA ALCANTAR MD [facility] 04-22-2021 19:05-0500 Mean blood pressure 77 mm[Hg] RADHA ALCANTAR MD [facility] 04-22-2021 19:05-0500 Reason For Taking VItal Signs RADHA ALCANTAR MD [facility] 04-22-2021 19:05-0500 Respiratory rate 16 /min RADHA ALCANTAR MD [facility] 04-22-2021 19:05-0500 Systolic blood pressure 104 mm[Hg] RADHA ALCANTAR MD [facility] 04-22-2021 18:51-0500 Body temperature 97.16 [degF] RADHA ALCANTAR MD [facility] 04-22-2021 18:51-0500 Diastolic Blood Pressure NBP 65 1 RADHA ALCANTAR MD [facility] 04-22-2021 18:51-0500 Heart rate 81 /min RADHA ALCANTAR MD [facility] 04-22-2021 18:51-0500 Mean blood pressure 77 mm[Hg] RADHA ALCANTAR MD [facility] 04-22-2021 18:51-0500 Respiratory rate 16 /min RADHA ALCANTAR MD [facility] 04-22-2021 18:51-0500 Systolic Blood Pressure NBP 122 1 RADHA ALCANTAR MD [facility] 04-22-2021 18:38-0500 Diastolic Blood Pressure NBP 69 1 RADHA ALCANTAR MD [facility] 04-22-2021 18:38-0500 Heart rate 77 /min RADHA ALCANTAR MD [facility] 04-22-2021 18:38-0500 Mean blood pressure 81 mm[Hg] RADHA ALCANTAR MD [facility] 04-22-2021 18:38-0500 Systolic Blood Pressure NBP 125 1 RADHA ALCANTAR MD [facility] 04-22-2021 18:23-0500 Diastolic Blood Pressure NBP 66 1 RADHA ALCANTAR MD [facility] 04-22-2021 18:23-0500 Mean blood pressure 79 mm[Hg] RADHA ALCANTAR MD [facility] 04-22-2021 18:23-0500 Systolic Blood Pressure NBP 116 1 RADHA ALCANTAR MD [facility] 04-22-2021 17:55-0500 Body temperature 96.98 [degF] RADHA ALCANTAR MD [facility] 04-22-2021 17:55-0500 Body temperature 99.19 [degF] RADHA ALCANTAR MD [facility] 04-22-2021 17:50-0500 Body temperature 99.18 [degF] RADHA ALCANTAR MD [facility] 04-22-2021 17:45-0500 Body temperature 99.14 [degF] RADHA ALCANTAR MD [facility] 04-22-2021 09:43-0500 Body height 167.6 cm RADHA ALCANTAR MD [facility] 04-22-2021 09:43-0500 Body weight 98.1 kg RADHA ALCANTAR MD [facility] 04-22-2021 09:43-0500 Diastolic blood pressure 80 mm[Hg] RADHA ALCANTAR MD [facility] 04-22-2021 09:43-0500 Heart rate 94 /min RADHA ALCANTAR MD [facility] 04-22-2021 09:43-0500 Systolic blood pressure 117 mm[Hg] RADHA ALCANTAR MD [facility] 04-20-2021 10:49-0500 Body temperature 98.42 [degF] EVENS VALENCIA MD [facility] 04-20-2021 10:49-0500 Diastolic blood pressure 84 mm[Hg] EVENS VALNECIA MD [facility] 04-20-2021 10:49-0500 Heart rate 88 /min EVENS VALENCIA MD [facility] 04-20-2021 10:49-0500 Respiratory rate 20 /min EVENS VALENCIA MD [facility] 04-20-2021 10:49-0500 Systolic blood pressure 128 mm[Hg] EVENS VALENCIA MD [facility] 03-16-2019 14:55-0400 Pulse (Heart Rate) 100 /min [facility], [place] 03-16-2019 14:55-0400 Pulse Oximetry 100 % [employer], [place] 03-16-2019 13:42-0400 Body Temperature 98.49 [degF] [employer] [facility], [place] 03-16-2019 13:42-0400 BP Diastolic 77 mm[Hg] [facility], [place] 03-16-2019 13:42-0400 BP Systolic 121 mm[Hg] [facility], [place] 03-16-2019 13:42-0400 Respiratory Rate 16 /min Lawrence [facility] [place] Encounters Encounter Date Encounter Type Care Provider Facility Start: 05-20-2023 End: 05-25-2023 ambulatory GIOVANNI MALDONADO DO Facility:B Start: 05-20-2023 End: 05-24-2023 Outreach Lab DEB PEARCE SANDAL PARTS ASSEMBLER-IMAGING ANALYST [facility] Start: 05-20-2023 End: 05-21-2023 ambulatory DEB PEARCE [employer] ASSEMBLER-IMAGING ANALYST Facility:B Start: 10-12-2022 End: 10-13-2022 ambulatory SILAS GOMEZ [employer] ASSEMBLER-IMAGING ANALYST Facility:B Start: 10-12-2022 End: 10-12-2022 Patient encounter procedure SILAS GOMEZ [employer]AL [employer]S ASSEMBLER-IMAGING ANALYST [facility] Start: 10-08-2022 End: 10-09-2022 ambulatory SILAS GOMEZ [employer] ASSEMBLER-IMAGING ANALYST Facility:B Start: 04-26-2022 End: 04-26-2022 Emergency department patient visit AZRA DIAZ MD [facility] Start: 02-05-2022 End: 02-05-2022 Subsequent hospital visit by physician Roberto Smith SANDAL [employer]S ASSEMBLER - IMAGING ANALYST Work Phone: [facility] CT Procedures Date Procedure Procedure Detail Performing Clinician Start: 11-06-2021 OPERATIVE REPORT Physic anette Generic Start: 11-06-2021 Urine test visual color cmprsn bismark Miner MD Work Phone: Start: 07-21-2021 Ct maxillofacial w/o contrast material Radha Thompson DO Work Phone: Start: 04-22-2021 Robot assisted lapar oscopic cholecystectomy ITNG JAVIER S[employer]AL [employer]S ASSEMBLER-IMAGING ANALYST Start: 11-28-2020 Diagnostic laparosco py of female pelvis KAYLEEN ALBARRAN [employer]ANDAL [employer]S ASSEMBLER-IMAGING ANALYST Plan of Treatment Date Care Activity Detail Author Start: 2046 Pneumococcal 0-64 years Vaccine (2 of 2 - PPSV23) Pneumococcal 0-64 years Vaccine (2 of 2 - PPSV23) [facility] Start: 2046 Pneumococcal 0-64 years Vaccine (2 of 2) Pneumococcal 0-64 years Vaccine (2 of 2) [facility] Work Phone: Start: 2031 Shingles Vaccine (1 of 2) Shingles Vaccine (1 of 2) [facility] Work Phone: Start: 12-09-2028 DTaP/Tdap/Td vaccine (3 - Td or Tdap) DTaP/Tdap/Td vaccine (3 - Td or Tdap) [facility] Start: 12-09-2028 DTaP/Tdap/Td vaccine (3 - Td) DTaP/Tdap/Td vaccine (3 - Td) [place] Start: 07-12-2025 Lipid panel Lipids [facility] Start: 01-07-2023 Screening for malignant neoplasm of cervix [facility] Start: 02-05-2022 End: 02-05-2022 Patient encounter procedure 02/05/2022 Appointment Radiology [facility] Start: 01-29-2022 Influenza vaccination [facility] Start: 12-09-2021 Cervical cancer screen Cervical cancer screen [place], [place] Start: 07-12-2021 Lipid panel Lipid screen [facility] Start: 01-29-2021 Influenza vaccination Flu vaccine (#1) [facility] Start: 01-10-2021 End: 01-10-2021 Office Visit 01/10/2021 Office Visit Family Medicine Sophia Medellin MD [address] [place] [address] [phone] [facility] Start: 10-14-2020 End: 10-14-2020 Patient encounter procedure 10/14/2020 Appointment Radiology ANTOINE [facility] Start: 10-14-2020 Subsequent hospital visit by physician 10/14/2020 Hospital Encounter Radiology Roberto Smith, SANDAL [employer]S ASSEMBLER - IMAGING ANALYST [address] [place] [address] [phone] [facility] [address] Start: 01-09-2020 Screening for malignant neoplasm of cervix Cervical cancer screen [facility] Work Phone: Start: 01-08-2020 End: 01-08-2020 Office Visit 01/08/2020 Office Visit Family Sophia Dudley MD [address] [place] [address] [place] [address] [phone] [facility] Start: 12-10-2019 Lipid screen Lipid screen [place], [place] Start: 12-10-2019 Pneumococcal 0-64 years Vaccine (2 - PCV) Pneumococcal 0-64 years Vaccine (2 - PCV) [facility] Start: 06-20-2019 End: 06-20-2019 Office Visit 06/20/2019 Office Visit Family Medicine Sophia Medellin MD [address] [place] [address] [phone] [facility] Start: 01-29-2019 Influenza vaccination Flu vaccine (#1) [place] Start: 2011 Screening for malignant neoplasm of cervix HPV (without or with Pap) [facility] Start: 1997 COVID-19 Vaccine (1) COVID-19 Vaccine (1) [facility] Work Phone: Start: 1993 COVID-19 Vaccine (1) COVID-19 Vaccine (1) [facility] Work Phone: Start: 1993 Depression Monitoring Depression Monitoring [facility] Start: 1986 COVID-19 Vaccine (1) COVID-19 Vaccine (1) [facility] Start: 1981 COVID-19 Vaccine (#1) COVID-19 Vaccine (#1) [facility] End: 02-10-[address] CT CHEST LOW DOSE CT CHEST LOW DOSE Imaging Routine Once for 1 Occurrences starting 02/10/2021 until 02/10/2021 [facility] Work Phone: Immunizations Immunization Date Immunization Notes Care Provider Fa cility 02-22-2020 Influenza, injectabl e, Madin [place] Canine Kidney, preservative free, quadrivalent Roberto Luis [facility] Work Phone: 02-21-2020 influenza virus vacc ine, unspecified formulation KAYLEEN ALBARRAN [employer]AL [employer]S ASSEMBLER-IMAGING ANALYST [facility] 02-23-2019 influenza virus vacc ine, unspecified formulation KAYLEEN ALBARRAN [employer]S ASSEMBLER-IMAGING ANALYST [facility] 02-23-2019 Influenza, injectabl e, Madin [place] Canine Kidney, preservative free, quadrivalent Lawrence Adusumilli [place], [place] 12-09-2018 pneumococcal polysaccharide vaccine, 23 valent Radha [place] Payers Date Payer Category Payer Unknown [id number] 2019 Unknown [id number] 2018 Unknown xxxxxxxxxxxx [id number] 1981 Unknown [id number] 1981 Unknown [id number] 1981 Unknown [id number] 1981 Unknown [id number] 1981 Unknown [id number] Social History Date Type Detail Facility Start: 12-09-2018 End: 04-25-2020 Tobacco smoking status NHIS Never smoker [place], [place] Start: 12-09-2018 End: 03-16-2019 Alcohol intake Yes [facility] [place], [place] Sex Assigned At Not on file [facility] Start: 07-17-2019 End: 11-06-2021 Alcohol intake Current drinker of alcohol (finding) [facility] Work Phone: Start: 06-17-2015 End: 07-31-2020 Tobacco use and exposure Never used [facility] Work Phone: Start: 01-04-2020 History SDOH Alcohol Frequency 1 [facility] Work Phone: Start: 01-04-2020 History SDOH Financial 5 [facility] Work Phone: Start: 01-04-2020 History SDOH Transpo rt Med 2 [facility] Work Phone: Start: 1980 Sex Assigned At Female S [facility] Work Phone: Start: 10-27-2021 End: 11-06-2021 Exposure to SARS-CoV-2 (event) Not sure [facility] Work Phone: Start: 07-31-2020 End: 11-06-2021 Alcohol intake [facility] Work Phone: Sex Assigned At [facility] Start: 11-06-2021 History SDOH Alcohol Comment not currently [facility] Work Phone: Goals Date Patient Goal Desired Activity /State Functional Status Date Assessment Result Facility 04-26-2022 Functional Status Independent [facility] 04-26-2022 Functional Status Standard Safet y ID band on, Allergy Band on, Call device within reach, Bed in low position, Wheels locked, Upper/Half-Length side-rails up, Phone within reach, Safety level maintained [facility] Mental Status Date Assessment Result Facility 04-26-2022 Mental Status Orientation Oriented x 4 [facility] 04-26-2022 Mental Status [facility] Clinical Notes 03-11-2021 to 05-22-2023 Hilda Reyes RN - 11/06/2021 11:30 AM Marylou Reyes RN - 11/06/2021 10:57 AM EDBrennan Thompson, DO - 11/06/2021 9:30 AM EDTInstructionsRadiologyLaboratoryRadiologyLaboratoryRadiology Note Date & Type Note Facility 05-22-2023 Note . MICRO - Microbiology PROCEDURE: Urine Culture [*1] SOURCE: Urine, Clean Catch BODY SITE: COLLECTED DATE/TIME: 05/20/2023 13:01 EST RECEIVED DATE/TIME: 05/20/2023 19:30 EST START DATE/TIME: 05/20/2023 19:30 EST FREE TEXT SOURCE: FINAL REPORTS Final Report [] Verified Date/Time/Personnel: 05/22/2023 08:05 EST 50,000 - 100,000 cfu/ml Mixed growth consistent with normal urogenital donnell. PRELIMINARY REPORTS Preliminary Report [] Verified Date/Time/Personnel: 05/21/2023 09:06 EST No growth to date Performing Locations *1: This test was performed at: [address], [address] [place] [address] (MD) 10-12-2022 Note ORIGINAL FROM: [address] [address] PROCEDURE FOR: [place] [address] Home: PID#: [id number] Exam#: [id number] : 1980 Age: 42 TO: SILAS GOMEZ APRN [facility] [address] [address] Fax: NO FAX EXAMINATION: ULTRASOUND OF THE BILATERAL BREASTS 10/12/2022 9:22 am TECHNIQUE: Color flow and real-time targeted ultrasound of the bilateral breast at 12 o'clock were performed. COMPARISON: October 08, 2022, June 23, 2021 HISTORY: ORDERING SYSTEM PROVIDED HISTORY: Reason for Exam: abnormal mammo FINDINGS: In the right breast at 12 o'clock 10 cm from the nipple, there is a cyst cluster measuring 1.8 cm, likely correlating with the area of interest on mammography. In the left breast at 12 o'clock 11 cm from the nipple, there is a cyst measuring 1.9 cm, likely correlating with the area of interest on mammography. IMPRESSION: Cyst cluster in the right breast and cyst in the left breast, benign.. The patient may return to annual mammographic screening. BIRADS: MAMMOGRAM BI-RADS: 2: Benign finding RECALL: 1 year screening RECALL TYPE: mammo LETTER SENT: Normal BI-RADS 1 and 2 Interpreted by: Fay Waite Preliminary Report By: Fay Waite Electronically signed By Fay Waite Dictated Date: 10/12/2022 9:58:05 AM Prelim Date: 10/12/2022 10:00:04 AM Sign Date: 10/12/2022 10:00:04 AM Ordering Provider: SILAS GOMEZ CLINICAL: BILATERAL MAMMOGRAPHIC DENSITIES. Radio Television Announcer: VIJAYA JOHNSON RT(R) RDMS letter sent: Normal BI-RADS 1 and 2 Ultrasound BI-RADS: 2 Benign [facility] 10-12-2022 Note ORIGINAL FROM: [address] [id number] PROCEDURE FOR: [place] [address] Home: PID#: [id number] Exam#: [id number] : 1980 Age: 42 TO: SILAS GOMEZ SANDAL PARTS ASSEMBLER [facility] [address] [address] Fax: NO FAX EXAMINATION: ULTRASOUND OF THE BILATERAL BREASTS 10/12/2022 9:22 am TECHNIQUE: Color flow and real-time targeted ultrasound of the bilateral breast at 12 o'clock were performed. COMPARISON: October 08, 2022, June 23, 2021 HISTORY: ORDERING SYSTEM PROVIDED HISTORY: Reason for Exam: abnormal mammo FINDINGS: In the right breast at 12 o'clock 10 cm from the nipple, there is a cyst cluster measuring 1.8 cm, likely correlating with the area of interest on mammography. In the left breast at 12 o'clock 11 cm from the nipple, there is a cyst measuring 1.9 cm, likely correlating with the area of interest on mammography. IMPRESSION: Cyst cluster in the right breast and cyst in the left breast, benign.. The patient may return to annual mammographic screening. BIRADS: MAMMOGRAM BI-RADS: 2: Benign finding RECALL: 1 year screening RECALL TYPE: mammo LETTER SENT: Normal BI-RADS 1 and 2 Interpreted by: Fay Waite Preliminary Report By: Fay Waite Electronically signed By Fay Waite Dictated Date: 10/12/2022 9:58:05 AM Prelim Date: 10/12/2022 10:00:04 AM Sign Date: 10/12/2022 10:00:04 AM Ordering Provider: SILAS GOMEZ CLINICAL: BILATERAL MAMMOGRAPHIC DENSITIES. Radio Television Announcer: VIJAYA JOHNSON RT(R) RDMS letter sent: Normal BI-RADS 1 and 2 Ultrasound BI-RADS: 2 Benign [facility] 04-26-2022 Hospital Discharge instructions Patient Education 04/26/2022 02:25:47 Chest Pain, Uncertain Cause Uncertain Causes of Chest Pain Chest pain can happen for a number of reasons. Sometimes the cause can't be determined. If your condition does not seem serious, and your pain does not appear to be coming from your heart, your healthcare provider may recommend watching it closely. Sometimes the signs of a serious problem take more time to appear. Many problems not related to your heart can cause chest pain. These include: Musculoskeletal. Costochondritis is an inflammation of the tissues around the ribs that can occur from trauma or overuse injuries, or a strain of the muscles of the chest wall Respiratory. Pneumonia, collapsed lung (pneumothorax), or inflammation of the lining of the chest and lungs (pleurisy) Gastrointestinal. Esophageal reflux, heartburn, ulcers, or gallbladder disease Anxiety and panic disorders Nerve compression and inflammation Rare miscellaneous problems such as aortic aneurysm (a swelling of the large artery coming out of the heart) or pulmonary embolism (a blood clot in the lungs) Home care After your visit, follow these recommendations: Rest today and avoid strenuous activity. Take any prescribed medicine as directed. Be aware of any recurrent chest pain and notice any changes Follow-up care Follow up with your healthcare provider if you do not start to feel better within 24 hours, or as advised. Call 911 Call 911 if any of these occur: A change in the type of pain: if it feels different, becomes more severe, lasts longer, or begins to spread into your shoulder, arm, neck, jaw or back Shortness of breath or increased pain with breathing Weakness, dizziness, or fainting Rapid heart beat Crushing sensation in your chest When to seek medical advice Call your healthcare provider right away if any of the following occur: Cough with dark colored sputum (phlegm) or blood Fever of 100.4 F (38 C) or higher, or as directed by your healthcare provider Swelling, pain or redness in one leg [id number] [employer]. [address] [place] [address]. All rights reserved. This information is not intended as a substitute for professional medical care. Always follow your healthcare professional's instructions. Follow Up Care 04/26/2022 00:35:01 With:SILAS GOMEZ Address: [address] [place] [phone] When:2-4 days [facility] 04-26-2022 Note Discharge Instructions Thank you for allowing [facility] to assist you with your healthcare needs. The following is important discharge information regarding your hospital visit. Diagnosis from Today's Visit Chest pain Right sided Chest pain with deep breathing What to Do Next Instructions from Your Care Team No qualifying data available. Post Acute Orders No qualifying data available. You Need to Schedule the Following Appointments Follow Up with SILAS GOMEZ When Within 2-4 days Where: [address] [place] [phone] Allergies Bactrim (Tongue swelling) seasonal enviromental (typical) Medications Please ask your primary doctor or pharmacist before taking any other medication not listed, including over the counter drugs, herbal medications, vitamins and or supplements as they may interact with your home medications. What How Much When Why Instructions Last Dose Unchanged albuterol (albuterol MDI (90 mcg/ inh) CFC free inhalation aerosol) 2 puff(s) by inhalation Every 4 hours as needed for as needed for wheezing URI - Upper respiratory infection Duration: 90 Days Unchanged amphetamine-dextroamphetamine (Adderall XR 15 mg oral capsule, extended release) 1 cap by mouth Once a day (in the morning) ADHD (attention deficit hyperactivity disorder) Duration: 30 Days Unchanged azelastine nasal (azelastine 137 mcg/ inh (0.1%) nasal spray) in the nose Two (2) times a day Unchanged buPROPion (buPROPion 150 mg/ 24 hours (XL) oral tablet, extended release) 1 tab(s) by mouth Every 24 hours Duration: 14 Days Unchanged desloratadine (Clarinex 5 mg oral tablet) 1 tab(s) by mouth Once a day Unchanged doxycycline (doxycycline hyclate 100 mg oral capsule) 1 cap by mouth Two (2) times a day Acute sinusitis Duration: 7 Days Unchanged fluticasone nasal (Flonase 50 mcg/ inh nasal spray) 2 spray(s) each nostril Two (2) times a day Acute sinusitis Unchanged fluticasone nasal (Flonase 50 mcg/ inh nasal spray) 1 spray(s) in the nose Once a day Unchanged hydrOXYzine (hydrOXYzine hydrochloride 25 mg oral tablet) 1 tab(s) by mouth Four (4) times a day as needed for as needed for anxiety Unchanged ibuprofen (ibuprofen 600 mg oral tablet) 1 tab(s) by mouth Every 6 hours Unchanged montelukast (Singulair) 10 Milligram by mouth Once a day Unchanged multivitamin (Multivitamin) 1 tab(s) by mouth Every day Unchanged pantoprazole (pantoprazole 40 mg oral enteric coated tablet) 1 tab(s) by mouth Once a day Unchanged rosuvastatin (rosuvastatin 10 mg oral tablet) 1 tab(s) by mouth Once a day Duration: 90 Days Please take this list to your next doctor s visit. Bring all medications you take, including over the counter medications, herbals and other supplements with you to your doctor s visit. Patients and families are reminded to discard old lists and to update any records with all medication providers or retail pharmacies. Education Materials Uncertain Causes of Chest Pain Chest pain can happen for a number of reasons. Sometimes the cause can't be determined. If your condition does not seem serious, and your pain does not appear to be coming from your heart, your healthcare provider may recommend watching it closely. Sometimes the signs of a serious problem take more time to appear. Many problems not related to your heart can cause chest pain. These include: Musculoskeletal. Costochondritis is an inflammation of the tissues around the ribs that can occur from trauma or overuse injuries, or a strain of the muscles of the chest wall Respiratory. Pneumonia, collapsed lung (pneumothorax), or inflammation of the lining of the chest and lungs (pleurisy) Gastrointestinal. Esophageal reflux, heartburn, ulcers, or gallbladder disease Anxiety and panic disorders Nerve compression and inflammation Rare miscellaneous problems such as aortic aneurysm (a swelling of the large artery coming out of the heart) or pulmonary embolism (a blood clot in the lungs) Home care After your visit, follow these recommendations: Rest today and avoid strenuous activity. Take any prescribed medicine as directed. Be aware of any recurrent chest pain and notice any changes Follow-up care Follow up with your healthcare provider if you do not start to feel better within 24 hours, or as advised. Call 911 Call 911 if any of these occur: A change in the type of pain: if it feels different, becomes more severe, lasts longer, or begins to spread into your shoulder, arm, neck, jaw or back Shortness of breath or increased pain with breathing Weakness, dizziness, or fainting Rapid heart beat Crushing sensation in your chest When to seek medical advice Call your healthcare provider right away if any of the following occur: Cough with dark colored sputum (phlegm) or blood Fever of 100.4 F (38 C) or higher, or as directed by your healthcare provider Swelling, pain or redness in one leg [phone] [employer]. [address] [place] [address]. All rights reserved. This information is not intended as a substitute for professional medical care. Always follow your healthcare professional's instructions. Additional Information VACCINATE! IT SAVES LIVES! Members of the community who have not yet received the COVID-19 vaccine and would like to receive it can visit one of [facility] vaccine clinics. There are many vaccine clinic locations within the [facility]. For locations and available times, please visit [email or web address] org. It is important to note that some COVID mobile vaccine clinics are held outdoors and may be canceled in rainy or stormy conditions. To learn more about pediatric vaccinations (ages 5-11), we invite you to visit the [employer] innRoadpage. [email or web address] [email or web address]-Freq [email or web address]-[email or web address].[email or web address] To learn more about the COVID-19 vaccine, we invite you to visit the [facility] website for a list of frequently asked questions. [email or web address] [facility] Patient Portal Access Instructions: Stay connected with your healthcare team and access your personal medical information anytime with the [facility] Patient Portal. If you would like a full copy of your medical records please contact the [facility] Medical Records Department Wednesday through Wednesday between 8a.m. and 4:30p.m. Please follow the directions below to access the portal: 1.Access the email account you provided upon registration to the [facility].2.Look for an invitation email from [facility].3.Open the email and access the invitation link: Accept Invitation to [facility]4.Fill in the required linder to create your account. Sign into www.[employer] with your username and password that you created in the above steps to stay up to date. You can then view a summary of results, a summary of your visits, and the ability to download your summaries to your computer or send the information securely to a physician. Remember that your healthcare information is confidential, so carefully consider who you will allow to register on the [facility] Patient Portal for access to your information. You can also access the [facility] Patient Portal on the [employer]. Simply click on Health Records under Health Data and then click on the [facility] logo. HOW TO SAFELY DISPOSE OF PRESCRIPTION MEDICATIONS Please use one of the following methods to safely dispose of your unused medications. 1.Use a drug disposal kit: the drug disposal pouch allows you to safely discard your old and unused drugs. Ask your nurse to give you one when you are discharged.2.Visit a local take-back location: Many local pharmacies and police departments have programs that collect old and unwanted prescription drugs. Call your local pharmacy or go to http://St[employer] S[employer]/7O8Qe5c to find one close to you.3.Make use of household items: Use cat litter or old coffee grounds to dispose medications if other options are not available. Mix your drugs with these household products, seal them in an airtight container and throw it into the garbage. Call [facility]: [phone] to be sure your drugs can be disposed of in this way. Some medicines may require a different approach.4.Never flush your medications down the toilet. IF YOU HAVE BEEN PRESCRIBED AN OPIOIDS FOR PAIN If you have been prescribed an opioid (such as hydrocodone, oxycodone or morphine), it is critical to understand the possible side effects and risks of opioid pain medications. Even when taken as directed, opioids can have several side effects including: Tolerance, meaning you might need to take more of a medication for the same pain relief. Nausea, vomiting and/or constipation. Sleepiness, dizziness, dry mouth, confusion, depression or itching. Physical dependence, meaning you have withdrawal symptoms when a medication is stopped ? this can develop within a few days. KNOW YOUR RESPONSIBILITIES It is important to know exactly how much and how often to take the opioid pain medications you are prescribed. Never take opioids in higher amounts or more often than prescribed. Do not combine opioids with alcohol or other drugs that cause drowsiness, such as benzodiazepines, also known as benzos, including diazepam and alprazolam, muscle relaxants or sleep aids. Never sell or share prescription opioids. This is illegal. Store opioids in a secure place and out of reach of others (including children, family, friends and visitors). The last page(s) of this document has been signed and retained as a CHART COPY Signatures Patient Education Materials Chest Pain, Uncertain Cause Medication Leaflets My discharge plan and instructions have been reviewed and explained to me and IELO HOLLY M understand my current condition and have read and understand these discharge instructions. I have received a written copy of the plan/instructions. If I have questions, I am aware that I should contact my doctor. 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 No consolidation, pleural effusion, or vascular congestion is seen. The osseous structures are intact. IMPRESSION: No acute findings. RECOMMENDATIONS: Unavailable Interpreted by: Chad Gould MD Preliminary Report By: Chad Gould MD Electronically signed By Chad Gould MD Dictated Date: 04/26/2022 2:07:18 AM Prelim Date: 04/26/2022 2:07:26 AM Sign Date: 04/26/2022 2:07:26 AM Ordering Provider: [facility] 04-26-2022 Note ORIGINAL EXAMINATION: TWO XRAY VIEWS OF THE CHEST04/26/2022 1:55 am CHEST AP/PA and LATERAL COMPARISON: None HISTORY: ORDERING SYSTEM PROVIDED HISTORY: Reason for Exam: Chest Pain FINDINGS: The cardiomediastinal silhouette is normal in appearance. No consolidation, pleural effusion, or vascular congestion is seen. The osseous structures are intact. IMPRESSION: No acute findings. RECOMMENDATIONS: Unavailable Interpreted by: Chad Gould MD Preliminary Report By: Chad Gould MD Electronically signed By Chad Gould MD Dictated Date: 04/26/2022 2:07:18 AM Prelim Date: 04/26/2022 2:07:26 AM Sign Date: 04/26/2022 2:07:26 AM Ordering Provider: [facility] 11-06-2021 History of Present illness Narrative brought to bedside. Denies pain and nausea. Drinking pop and ice chips. Received patient from OR coughing shaking and complaining of nausea. Report received and assessment completed. Belongings with patient. Interval History and Physical I have interviewed and examined the patient and reviewed the recent History and Physical. There have been no changes to the recent H&P documentation. The H&P resides on a progress note on this patient's chart. The patient understands the planned operation and its associated risks and benefits and agrees to proceed. The surgical consent form has been signed. BP 127/86 Pulse 91 Temp 98 F (36.7 C) (Temporal) SpO2 97% documented in this encounter [facility] Work Phone: 10-23-2021 Hospital Discharge instructions Radha Thompson DO - 11/06/2021 Nasal Surgery - Home Instructions Dr. Radha Thompson 1. You have undergone surgery and should therefore allow 10 - 14 days to rest. Avoid any heavy lifting, straining, or bending over during this time. 2. Maintain head elevation. 3. Use ice compresses (not a heavy ice bag) as needed for facial or nasal swelling. 4. Use a saline nasal spray (ex; Emily, Warren, Afrin Non-Medicated, or Manuel-Synephrine Nasal) 2 to 3 sprays each nostril, 10 to 20 times daily. This helps to rinse and moisturize the nose. 5. Do not blow or otherwise manipulate your nose. 6. Bloody oozing from the nose is normal and is to be expected. You may gently pat at the end of your nose should there be any secretions. Alternatively, you may tape guaze to the nasal tip as a drip pad. 7. You may have received a nasal spray from the hospital. Do not use this unless the nasal congestion is too uncomfortable. If so, you use this spray or Afrin for three (3) days only. 8. If you need to sneeze, do not suppress it. Rather, sneeze with your mouth open. 9. Any loss of smell or taste should return with in a few weeks. 10. Continue all routine home medications. You may use ibuprofen (Advil / Motrin) as needed to supplement relief of discomfort. 11. You should not drive a vehicle for 24 hours after your surgery or while you are taking the prescribed pain medication. 12. If you have any questions or concerns regarding your care, please contact our office at any time. OFFICE NUMBER: [phone] documented in this encounter [facility] Work Phone: 04-22-2021 Hospital Discharge instructions Patient Education 04/22/2021 19:22:49 [facility] Discharge Instructions Template (02/2018)(CUSTOM) [facility] SAME DAY SURGERY DISCHARGE INSTRUCTIONS PLEASE FOLLOW THE INSTRUCTIONS BELOW MARKED WITH AN X: _x__ Regular Diet: Start with clear liquids, then soup and crackers and gradually add other foods. _x__ Drink extra fluids. ___ Special Diet Instructions: ___ ACTIVITY: _x__ Avoid stress to suture line. Since you have had an anesthetic, it would be advisable not to drive, drink alcohol, or make major decisions over the next 24 hours. You may require more rest tonight and tomorrow. ___ May resume regular activity as tolerated. ___ Restrict activity as follows: ___ ___ Walk Only ___ ___ Do not go up and down stairs. ___ Do not ride in car until ___ ___ Do not drive car. ___ Do not have sexual intercourse. ___ No heavy lifting, pushing or straining. _x__ Other: _Follow all other written and verbal instructions provided to you by Dr. Alcantar.__ BATHING/SHOWERING: ___ Sponge bathe until office visit. ___ Sitting in tub of warm water may relieve discomfort. ___ May tub bathe ___ May shower ___ On day after surgery sit in tub of warm water to soak off dressing. DRESSING: ___ Keep operative area dry and clean for ___ ___ Check the operative area for signs of bleeding. Apply pressure to the bleeding site if necessary and call your physician. ___ Change dressing as necessary using sterile dressing material or bandaid. ___ Reinforce dressing as necessary. ___ Change and care for wound as follows: ___ ___ Wear bra for ___ days following breast surgery for comfort. ___ Change drip pad as needed. ___ Wear scrotal support for comfort. WATCH FOR SIGNS OF INFECTION: (Usually appears 36-48 hours after surgery) Increased temperature (101 degrees Fahrenheit or higher) Redness or swelling Increased pain Foul odor or drainage. If you have any questions, please call your doctor at the number listed on your follow up instructions. Follow all instructions given to you by your physician. Please complete and return the survey you will be receiving in the mail to help us better serve our patients. Form: [id number] ([id number]) R: 09/06 Follow Up Care 04/21/2021 16:34:08 With:RADHA ALCANTAR MD, Surgery Address: [phone] When: Unknown Comments:Follow-up as scheduled [facility] 04-20-2021 Hospital Discharge instructions Patient Education 04/20/2021 12:46:19 Flank Pain, Uncertain Cause Flank Pain, Uncertain Cause The flank is the area between your upper abdomen and your back. Pain there is often caused by a problem with your kidneys. It might be a kidney infection or a kidney stone. Other causes of flank pain include spinal arthritis, a pinched nerve from a back injury, or a back muscle strain or spasm. The cause of your flank pain is not certain. You may need other tests. Home care Follow these tips when caring for yourself at home: You may use acetaminophen or ibuprofen to control pain, unless your health care provider prescribed another medicine. If you have chronic liver or kidney disease, talk with your provider before taking these medicines. Also talk with your provider first if you ve ever had a stomach ulcer or GI bleeding. If the pain is coming from your muscles, you may get relief with ice or heat. During the first 2 days after the injury, put an ice pack on the painful area for 20 minutes every 2 to 4 hours. This will reduce swelling and pain. A hot shower, hot bath, or heating pad works well for a muscle spasm. You can start with ice, then switch to heat after 2 days. You might find that alternating ice and heat works well. Use the method that feels the best to you. Follow-up care Follow up with your healthcare provider if your symptoms don t get better over the next few days. When to seek medical advice Call your healthcare provider right away if any of these happen: Repeated vomiting Fever of 100.4 F (38 C) or higher, or as directed by your health care provider Flank pain that gets worse Pain that spreads to the front of your belly (abdomen) Dizziness, weakness, or fainting Blood in your urine Burning feeling when you urinate or the need to urinate often Pain in one of your legs that gets worse Numbness or weakness in a leg [id number] [employer]. [address] [place] [address], [place] [address]. All rights reserved. This information is not intended as a substitute for professional medical care. Always follow your healthcare professional's instructions. Follow Up Care 04/20/2021 10:41:10 With:RADHA ALCANTAR MD, Surgery Address: [phone] When: Unknown Comments:as scheduled , call wednesday. [facility] 03-11-2021 Note HNO ID: [id number] Author: Lou Donis APRN.IMAGING ANALYST Service: ? Author Type: Nurse Practitioner Type: Progress Notes Filed: 03/11/2021 5:41 PM Note Text: This note was created using VideoCareriter. Subjective Roberto Nava is a 40 year old female. HPI by patient: Roberto Nava is a 40 year old female presenting to the office with the complaint of uri symptoms. Started approximately 5-6 days prior, last . Associated symptoms include sore throat, dental pain, sinus congestion, pain to the top of the mouth- mostly hot foods, runny nose- not too much, a little cough, headaches- thinks stress related, and diarrhea. Has been more tired. Denies shortness of breath, nausea, vomiting, fevers, chills, body aches, and loss of smell/taste that is new. Strep contacts: none. Vaccinated for Covid: no. 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 Covid + contacts: none. Travel in the last 14 days: none. Smoking history/second hand smoke: none. OTC Advil and chloraseptic spray. No antibiotic use in the last 30 days. ALLERGIES Bactrim (Sulfametho* Swelling Comment:Tongue swelling No family history on file. Social History Tobacco Use Smoking status: Never Smoker Smokeless tobacco: Never Used Alcohol use: Not on file Drug use: Not on file Active Ambulatory Problems No Active Ambulatory Problems Resolved Ambulatory Problems No Resolved Ambulatory Problems No Additional Past Medical History Review of Systems Constitutional: Positive for fatigue. Negative for fever. HENT: Positive for rhinorrhea and sore throat. Eyes: Negative. Respiratory: Positive for cough. Negative for shortness of breath. Cardiovascular: Negative. Gastrointestinal: Positive for diarrhea. Negative for nausea and vomiting. Endocrine: Negative. Genitourinary: Negative. Musculoskeletal: Negative. Skin: Negative. Neurological: Positive for headaches. Hematological: Negative. Objective BP 117/70 Pulse 70 Temp 36.9 ?C (98.4 ?F) (Temporal) Resp 20 Wt 100.3 kg (221 lb 1.6 oz) LMP 01/25/2020 (Exact Date) SpO2 99% Physical Exam Vitals reviewed. Constitutional: General: She is not in acute distress. Appearance: She is not ill-appearing, toxic-appearing or diaphoretic. HENT: Head: Normocephalic and atraumatic. Right Ear: Tympanic membrane, ear canal and external ear normal. Left Ear: Tympanic membrane, ear canal and external ear normal. Nose: Nose normal. Right Sinus: No maxillary sinus tenderness or frontal sinus tenderness. Left Sinus: No maxillary sinus tenderness or frontal sinus tenderness. Mouth/Throat: Mouth: Mucous membranes are moist. Pharynx: Oropharynx is clear. Uvula midline. Posterior oropharyngeal erythema present. Cardiovascular: Rate and Rhythm: Normal rate and regular rhythm. Heart sounds: Normal heart sounds. Pulmonary: Effort: Pulmonary effort is normal. Breath sounds: Normal breath sounds. Lymphadenopathy: Head: Right side of head: No submandibular or tonsillar adenopathy. Left side of head: No submandibular or tonsillar adenopathy. Cervical: No cervical adenopathy. Psychiatric: Behavior: Behavior is cooperative. Assessment and Plan (J06.9) Viral URI with cough (primary encounter diagnosis) Plan: 2019 CORONAVIRUS Education on viral vs bacterial infections. Most viral infections will last 10 days, sometimes 14. It is possible to have back to back viral infections. An antibiotic will not treat a virus. -Covid test for rule out, results in 48 hours, isolation in the interim. Stop at the front counter attendant to set up [employer] if you are not already active as we are only calling with positive results right now. -Drink lots of fluids and get plenty of rest. -Vaporizers, cool mist humidifiers, warm showers, and warm fluids help open respiratory and sinus passages. Clean humidifiers daily. -OTC tylenol as directed on the bottle. May use OTC Ibuprofen if there is no underlying blood pressure/heart disease. -Saline nasal spray as needed. Flonase twice daily can help reduce inflammation through the sinus cavities. -OTC Mucinex DM or generic version for cough/congestion for those over the age of 12. -Cough/deep breathing education, promote clearing of the airways and good lung expansion. -Make follow up with primary care for monitoring and resolution in symptoms. -Signs that warrant an ER evaluation: Sudden change/worsening in condition, lethargy, signs of dehydration, fever greater than 102 F that is not responding to Tylenol or ibuprofen (Motrin, Advil), drooling, difficulty swallowing, difficulty breathing, shortness of breath, chest pain, evidence of airway compromise (tripod position, neck extension, retractions), seizures, changes in mental status, or other concerns. The patient will pursue further outpatient evaluation with the primary care physician or another Urgent Care/Express Care as outlined in the after visit summary. Th (more content not included)... [facility] Evaluation + Plan note Future Appointments Appointment Date:04/14/2021 01:00:00 PM Scheduled Provider:SILAS GOMEZ Location:[facility] Appointment Type:MAISHA OV ED Follow Up Appointment Date:04/14/2021 05:30:00 PM [place]uled [place] [id number] Location:[facility] Appointment Type:PT Outpatient Evaluation Appointment Date:05/21/2021 09:00:00 AM Scheduled Provider:SILAS GOMEZ Location:[facility] Appointment Type:PC Wellness Annual Diagnostic Tests PendingEstradiol Level 04/11/21Progesterone Level 04/11/21Testosterone Level Total 04/11/21 [facility] Evaluation + Plan note Future Appointments Appointment Date:04/28/2021 08:00:00 AM [place]uled Provider:[place] [id number] Location:[facility] Appointment Type:PT [facility] Appointment Date:05/12/2021 05:00:00 PM Scheduled Provider:[place] [id number] Location:[facility] Appointment Type:PT [facility] Appointment Date:05/21/2021 09:00:00 AM Scheduled Provider:SILAS GOMEZ APRN-RADHA Location:[facility] Appointment Type:PC Wellness Annual Appointment Date:05/26/2021 09:00:00 AM Scheduled Provider:[place] [id number] Location:[facility] Appointment Type:PT [facility] Future Scheduled TestsNM Hepatobiliary Duct System Imaging 04/14/21 [facility] Evaluation + Plan note Future Appointments Appointment Date:06/23/2021 05:00:00 PM [place]uled Provider:[place] [id number] Location:[facility] Appointment Type:PT [facility] Appointment Date:07/18/2021 09:30:00 AM Scheduled Provider:SILAS GOMEZ APRN-RADHA Location:[facility] Appointment Type:PC Wellness Female Future Scheduled TestsLipid Profile 06/16/22NM Hepatobiliary Duct System Imaging 04/14/21 [facility] Evaluation + Plan note Future Appointments Appointment Date:10/28/2021 04:30:00 PM Scheduled Provider:SILAS GOMEZ APRN-RADHA Location:[facility] Appointment Type:PC OV Follow Up Future Scheduled TestsGlucose Tolerance Test 4 Hour (AO) 18/22NM Hepatobiliary Duct System Imaging 04/14/21 [facility] Evaluation + Plan note Future Appointments Appointment Date:12/16/2021 09:00:00 AM Scheduled Provider:SILAS GOMEZ APRN-RADHA Location:[facility] Appointment Type:PC OV Follow Up Future Scheduled TestsGlucose Tolerance Test 4 Hour (AO) 218/22Lipid Profile 7/18/22NM Hepatobiliary Duct System Imaging 04/14/21 [facility] Evaluation + Plan note Future Appointments Appointment Date:07/20/2022 09:00:00 AM Scheduled Provider:SILAS GOMEZ Location:[facility] Appointment Type:PC OV Controlled Medication Future Scheduled TestsGlucose Tolerance Test 4 Hour (AO) 07/18/21Lipid Profile 12/15/21 [facility] Evaluation + Plan note Future Appointments Appointment Date:01/01/2023 07:00:00 AM Scheduled Provider:SILAS GOMEZ Location:[facility] Appointment Type:PC OV Follow Up Future Scheduled TestsLipid Profile 12/15/21 [facility] Evaluation + Plan note Future Appointments Appointment Date:06/14/2023 11:00:00 AM Scheduled Provider:GIOVANNI MALDONADO DO Location[facility] Appointment Type:PC Wellness Annual Future Scheduled [id number] Hemoglobin 03/10/23Complete Blood Count 03/10/23Lipid Profile 03/10/23Hepatitis C Antibody IgG 03/10/23Complete Metabolic Panel 03/10/23 [facility] this encounter [facility] Work Phone: Evaluation note* Diagnosis Lung nodules Other nonspecific abnormal finding of lung field documented in this encounter [facility] Work Phone: Evaluation note* Diagnosis Lung nodules Other nonspecific abnormal finding of lung field documented in this encounter [facility] Work Phone: Hospital course Narrative No data available for this section [facility] Hospital Discharge instructions No data available for this section [facility] Progress note No data available for this section [facility] Advance Directives No Advanced Directives Records FoundDocuments on File Type Date Recorded Patient Arborist Representative Expl anation Advance Directives and Livin g Will Advance Directives and Livin g Will 09/21/2016 2:32 PM Power of Chief Operating Officer Latest Code Status on File Code Status Date Activated Date Inactivated Comments Full Code 09/17/2016 11:17 AM 09/17/2016 6:29 PM Documents on File Type Date Recorded Patient Arborist Representative Expl anation ACP-Advance Directive ACP-Advance Directive 09/21/2016 2:32 PM ACP-Power of Chief Operating Officer Documents on File Type Date Recorded Patient Arborist Representative Expl anation ACP-Advance Directive ACP-Power of Chief Operating Officer ACP-Advance Directive 09/21/2016 2:32 PM Latest Code Status on File Code Status Date Activated Date Inactivated Comments Full Code 11/06/2021 7:47 AM Full Code 09/17/2016 11:17 AM 09/17/2016 6:29 PM Documents on File Type Date Recorded Patient Arborist Representative Expl anation ACP-Advance Directive 09/21/2016 2:32 PM Latest Code Status on File Code Status Date Activated Date Inactivated Comments Full Code 11/06/2021 7:47 AM 11/06/2021 2:34 PM Full Code 09/17/2016 11:17 AM 09/17/2016 6:29 PM Discharge Instructions * Attachments The following attachments cannot be sent through Care Everywhere. * Pneumonia (Scottish) documented in this encounter Assessments Diagnosis Pneumonia due to organism- Primary Pneumonia due to other specified organism Diagnosis Rib pain on right side Chest pain, unspecified Summary Purpose Family History No Family History Records FoundNo Family History Records FoundNo Family History Records Found No data available for this section No Family History Records Found Reason for Referral Specialty Diagnoses / Procedures Referred By Satya tabor Referred To Contact Radiology Diagnoses Lung nodules Procedures Low Dose Chest CT -Abnormal Lung Screen Follow up Roberto Smith S, [employer] ASSEMBLER - IMAGING ANALYST [address] [place] [address] Referral ID Status Reason Start Date Expiration Date Visits Re quested Visits Authorized [id number] Open 02/11/2022 02/11/2023 1 1 Additional Source Comments Reason for Visit (unrecogniz ed section and content) INFORMATION SOURCE (unrecogn ized section and content) DATE CREATED AUTHOR AUTHOR'S ORGANIZ ATION 09/17/2021 [facility] DATE CREATED AUTHOR AUTHOR'S ORGANIZ ATION 02/07/2022 [facility] DATE CREATED AUTHOR AUTHOR'S ORGANIZ ATION 05/26/2023 [facility] ([place]) Care Teams (unrecognized sec tion and content) Scheduled Active and Recently Administ ered Medications (unrecognized section and content) Continuous Medication Order 11/04/2021 11/05/2021 11/06/2021 lactated ringers infusion IntraVENous, at 50 mL/hr, CONTINUOUS, Starting on Jillian 11/06/21 at 0815, Upon admission to sameday - please start iv if patient does not have iv access. Use 500ml NS for patients on dialysis., Pre-op (day of surgery) 0815 (Due) lactated ringers infusion IntraVENous, at 50 mL/hr, CONTINUOUS, Starting on Jillian 11/06/21 at 1115, PACU only 1115 (Due) PRN Medication Order 11/04/2021 11/05/2021 11/06/2021 0.9 % sodium chloride bolus 500 mL, IntraVENous, at 1,000 mL/hr, Administer over 0.5 Hours, PRN, Anti-nausea, Starting on Jillian 11/06/21 at 1056, PACU only 0.9 % sodium chloride infusion IntraVENous, at 5-250 mL/hr, PRN, if patient receiving piggyback infusions and maintenance fluids are not ordered OR KVO fluids to protect IV site / prevent frequent line interruptions/ long duration, Starting on Jillian 11/06/21 at 0747, For piggyback infusion, administer at same rate as piggyback for a total of 25 mL. Enter 25 mL into dose field and piggyback rate into rate field of order. If piggyback is infusing at a rate less than 100 mL/hr, enter 25 mL into dose field and 100 mL/hr into rate field of order. For KVO fluids, enter rate of 20 mL/hr or less into rate field of order., Pre-op (day of surgery) diphenhydrAMINE (BENADRYL) injection 12.5 mg 12.5 mg, IntraVENous, ONCE PRN, 1 dose, Starting on Jillian 11/06/21 at 1056, Until Jillian 11/06/21 at 2359, Itching, PACU only hydrALAZINE (APRESOLINE) injection 5 mg(Linked Group 1) 5 mg, IntraVENous, EVERY 10 MIN PRN, 2 doses, Starting on Jillian 11/06/21 at 1056, Until Discontinued, High Blood Pressure, for SBP greater than 160 mmHg for 2 consecutive measurements taken from different sites, PRN for SBP > 160 for 2 consecutive measurements, and if one of the following conditions is met: 1) If IV labetolol is ineffective. 2) If HR is under 60. 3) If patient has heart block, COPD or asthma. If both labetalol and hydralazine ineffective, notify anesthesiologist. for use Sameday and, PACU only HYDROmorphone (DILAUDID) injection 0.25 mg HYDROmorphone (DILAUDID) 1.5mg IV is equivalent to morphine 10mg IV, 0.25 mg, IntraVENous, EVERY 5 MIN PRN, 4 doses, Starting on Jillian 6 at 1056, Until Discontinued, Pain Moderate (4-6), Phase I and Phase II- Initial therapy for moderate pain (4-6). Restricted to a 90 minute time frame starting when the patient can verbally state their pain score. If oral meds are utilized, do not return to initial therapy medications. SDS and, PACU only HYDROmorphone (DILAUDID) injection 0.5 mg HYDROmorphone (DILAUDID) 1.5mg IV is equivalent to morphine 10mg IV, 0.5 mg, IntraVENous, EVERY 5 MIN PRN, 4 doses, Starting on Jillian 6 at 1056, Until Discontinued, Pain Severe (7-10), Phase I or Phase II- Initial therapy for severe pain (7-10). Restricted to a 90 minute time frame starting when the patient can verbally state their pain score. If oral meds are utilized, do not return to initial therapy medications. SDS and, PACU only labetalol (NORMODYNE;TRANDATE) injection 5 mg(Linked Group 1) 5 mg, IntraVENous, EVERY 10 MIN PRN, 2 doses, Starting on Jillian 6 at 1056, Until Discontinued, High Blood Pressure, for SBP greater than 160 mmHg for 2 consecutive measurements taken from different sites., PRN for SBP >160 for 2 consecutive measurements, if HR is 60 or greater. If beta dorian is contraindicated (HR less than 60, heart block, COPD or asthma) use hydralazine IV order. for use Sameday and, PACU only lidocaine PF 1 % injection 1 mL 1 mL, IntraDERmal, ONCE PRN, 1 dose, Starting on Jillian 11/06/21 at 0747, Until Jillian 11/06/21 at 2359, IV start, Pre-op (day of surgery) meperidine (DEMEROL) injection 12.5 mg 12.5 mg, IntraVENous, EVERY 5 MIN PRN, 4 doses, Starting on Jillian 11/06/21 at 1056, Until Discontinued, Shivering, , May give every 5 minutes to max of 50mg., PACU only ondansetron (ZOFRAN) injection 4 mg (COMPLETED) 4 mg, IntraVENous, ONCE PRN, 1 dose, Starting on Jillian 11/06/21 at 1056, Until Jillian 11/06/21 at 2359, Nausea, Initial antiemetic therapy., PACU only 1102 (Given - Provid er: Hilda Reyes RN) oxyCODONE (ROXICODONE) immediate release tablet 10 mg(Linked Group 2) 10 mg, Oral, PRN, 1 dose, Starting on Jillian 11/06/21 at 1056, Until Jillian 11/06/21 at 2359, Pain Severe (7-10), PHASE II, PACU only oxyCODONE (ROXICODONE) immediate release tablet 5 mg(Linked Group 2) 5 mg, Oral, PRN, 1 dose, Starting on Jillian 11/06/21 at 1056, Until Jillian 11/06/21 at 2359, Pain Moderate (4-6), PHASE II, PACU only sodium chloride flush 0.9 % injection 5-40 mL 5-40 mL, IntraVENous, PRN, Starting on Jillian 11/06/21 at 0747, Until Discontinued, Line Care, After every IV line use, For Line Patency: Peripheral IV = 5 mL; Midline or Central Line = 10 mL/lumen. If following IV push medication, administer flush at same rate as the IV push. Flush volume is determined by type of infusion therapy being given. For non-viscous solutions use: Peripheral IV = 5 mL Midline or Central Line = 10 mL/lumen For viscous solutions (i.e. blood components, parenteral nutrition, contrast media, or after obtaining blood sample) use: Peripheral IV = 10 mL Midline or Central Line = 20 mL/lumen, Pre-op (day of surgery) sodium chloride flush 0.9 % injection 5-40 mL 5-40 mL, IntraVENous, PRN, Starting on Jillian 11/06/21 at 1056, Until Discontinued, Line Care, After every IV line use, For Line Patency: Peripheral IV = 5 mL; Midline or Central Line = 10 mL/lumen. If following IV push medication, administer flush at same rate as the IV push. Flush volume is determined by type of infusion therapy being given. For non-viscous solutions use: Peripheral IV = 5 mL Midline or Central Line = 10 mL/lumen For viscous solutions (i.e. blood components, parenteral nutrition, contrast media, or after obtaining blood sample) use: Peripheral IV = 10 mL Midline or Central Line = 20 mL/lumen, PACU only No Frequency Medication Order 11/04/2021 11/05/2021 11/06/2021 ondansetron (ZOFRAN) 4 MG/2ML injection 1 dose, Starting on Jillian 11/06/21 at 1101, Until Jillian 11/06/21 at 2314, Carlita Flores: cabinet override, Carlita Flores: cabinet override 1115 (Due) Linked Groups Order Group 1: labetalol (NORMODYNE;TRANDATE) injection 5 mgJump to med 5 mg, IntraVENous, EVERY 10 MIN PRN, 2 doses, Starting on Jillian 11/06/21 at 1056, Until Discontinued, High Blood Pressure, for SBP greater than 160 mmHg for 2 consecutive measurements taken from different sites.
PRN for SBP >160 for 2 consecutive measurements, if HR is 60 or greater. If beta dorian is contraindicated (HR less than 60, heart block, COPD or asthma) use hydralazine IV order. for use Sameday and
PACU only Or hydrALAZINE (APRESOLINE) injection 5 mgJump to med 5 mg, IntraVENous, EVERY 10 MIN PRN, 2 doses, Starting on Jillian 11/06/21 at 1056, Until Discontinued, High Blood Pressure, for SBP greater than 160 mmHg for 2 consecutive measurements taken from different sites
PRN for SBP > 160 for 2 consecutive measurements, and if one of the following conditions is met: 1) If IV labetolol is ineffective. 2) If HR is under 60. 3) If patient has heart block, COPD or asthma. If both labetalol and hydralazine ineffective, notify anesthesiologist. for use Sameday and
PACU only Group 2: oxyCODONE (ROXICODONE) immediate release tablet 5 mgJump to med 5 mg, Oral, PRN, 1 dose, Starting on Jillian 11/06/21 at 1056, Until Jillian 11/06/21 at 2359, Pain Moderate (4-6)
PHASE II
PACU only Or oxyCODONE (ROXICODONE) immediate release tablet 10 mgJump to med 10 mg, Oral, PRN, 1 dose, Starting on Jillian 11/06/21 at 1056, Until Jillian 11/06/21 at 2359, Pain Severe (7-10)
PHASE II
PACU only Care Team (unrecognized sect ion and content) Care Team Personnel Name: RADHA ALCANTAR MD Position: P4 Physician - General Surgery Med Service: Amberly Thompson M.D. Member Role: Surgeon Address: Address: [address] [facility] [place] [address]- Name: SILAS GOMEZ APRN-IMAGING ANALYST Position: P4 Advanced Practice Nurse Med Service: Active Provider Member Role: Primary Care Physician Address: Address: [address] [place] [address]- Care Team Related Persons Name: RADHA NAVA Name: SATINDER NAVA Address: [facility] Address: Home [address], [place] [id number] [place] Address: [facility] [address], [place] [id number] Care Team Personnel Name: RADHA ALCANTAR MD Position: P4 Physician - General Surgery Member Role: Surgeon Address: Address: [address] [facility] [place] [address]- [place] Name: SILAS GOMEZ CJ-RADHA Position: P4 Advanced Practice Nurse Member Role: Primary Care Physician Address: Address: [address] [facility] [place] [address]- Name: AZRA DIAZ MD Position: ED Physician Member Role: Attending Physician Address: [facility] [address] [place] [address]- Care Team Related Persons Name: RADHA NAVA Name: ELO SATINDER L Address: [facility] Address: Home [address], [place] [id number] [place] Address: Temporary [address], [place] [id number] FOR RECORDS PERTAINING TO PATIENTS WHO ARE OR HAVE BEEN ENROLLED IN A CHEMICAL DEPENDENCY/SUBSTANCEABUSE PROGRAM, SOME INFORMATION MAY BE OMITTED. This clinical summary was aggregated from multiple sources. Caution should be exercised in using it in the provision of clinical care. This summary normalizes information from multiple sources, and as a consequence, information in this document may materially change the coding, format and clinical context of patient data. In addition, data may be omitted in some cases. CLINICAL DECISIONS SHOULD BE BASED ON THE PRIMARY CLINICAL RECORDS. [facility]. provides no warranty or guarantee of the accuracy or completeness of information in this document.
== END | disposition home or self-care (01) ==
LOC: US 10:01
PROVIDERS: PCP Nurse Practitioner Primary Care; Referring Provider Advanced Practice Midwife; Visit Provider Advanced Practice Midwife
DX: N83.202 Unspecified ovarian cyst, left side (principal)
CPT/HCPCS: 76830

== ENCOUNTER → 2023-06-07 | Outpatient (CLI) | payer BC, SELFPAY ==
--- OUTSIDE RECORDS SUMMARY | 2023-06-07 06:53 | XMS RPT_ITS | CCD ---
Author Name Unknown Address [address] [place] [address] Organization [facility] Care Team Providers Care Rfid Systems Architect Name Role Phone Sophia Medellin Primary Care Provider DR SOPHIA MEDELLIN MD Primary Care Physician JASON ALBERTO, SILAS Primary Care Physician Sophia Medellin MD Primary Care Provider Unavailable Primary Care Provider GIOVANNI Garrett DO Primary Care Physician [phone] JASON ALBERTO, SILAS Primary Care Nj ALBERTO, SILAS Attending Nj ALBERTO, DEB Attending GIOVANNI Garrett DO Primary Care Unavailable MARIETTA REMY, DEB Attending GIOVANNI Garrett DO Primary Care [facility] REMY, DEB Attending Jens MALDONADO DO GIOVANNI Primary Care Unavailable JASON ALBERTO, SILAS Primary Care Nj ALBERTO, SILAS Attending Nj goel Allergies Allergy Classification Reported Allergen(s) Allergy Type Date of Onset Reaction(s) Facility Sulfamethoxazole / Trimethoprim (3 sources) Sulfamethoxazole / Trimethoprim Drug Allergy 06-17-19 16 [facility] rosuvastatin Drug Allergy 01-03-20 19 Rash [place], [place] (18 sources) Sulfamethoxazole / Trimethoprim; Translations: [sulfamethoxazole-t rimethoprim] Drug Allergy 06-17-19 16 [place], [place] (6 sources) seasonal enviromental Allergy to substance typical [facility] (2 sources) Doxycycline; Translations: [doxycycline] Drug Allergy Chest pain (finding) [facility] [place] (2 sources) FLUoxetine; Translations: [fluoxetine] Drug Allergy Upset stomach (finding) [facility] [place] Medications Current Medications Medication Drug Class(es) Dates Sig (Normalized) Sig (Original) Afrin 0.05% nasal Mist (4 sources) Start: 11-22-2020 take 1 dose nasal route twice daily as needed Afrin 0.05% nasal Mist Dose = 2 spray(s), Nostril, each, BID, PRN Sinus symptoms, 0 Refill(s) Start Date: 11/22/20 Status: Ordered [id number] 200 actuat albuterol 0.09 mg/actuat metered dose [...] every four hours as needed for pain [place]ust 325- 5 mg oral tablet Dose = [...] Body temperature 98.06 [degF] AZRA DIAZ MD [facility] 04-26-2022 00:39-0500 Diastolic Blood Pressure Non-Invasive 77 [address] [facility] 04-26-2022 00:39-0500 Heart rate 96 /min AZRA DIAZ MD [facility] 04-26-2022 00:39-0500 Respiratory rate 18 /min AZRA DIAZ MD [facility] 04-26-2022 00:39-0500 Systolic Blood Pressure Non-Invasive 129 [address] [facility] 11-06-2021 11:45-0400 Diastolic blood pressure 74 mm[Hg] [facility] Work Phone: [facility] 11-06-2021 11:45-0400 Heart rate 84 /min [facility] Work Phone: [facility] 11-06-2021 11:45-0400 Respiratory rate 18 /min [facility] Work Phone: [facility] 11-06-2021 11:45-0400 Systolic blood pressure 132 mm[Hg] [facility] Work Phone: [facility] 11-06-2021 11:30-0400 SaO2% (BldA) [Mass fraction] 96 % [facility] Work Phone: [facility] 11-06-2021 10:57-0400 Body temperature 98.71 [degF] [facility] Work Phone: [facility] 04-22-2021 20:08-0500 Body temperature 96.98 [degF] RADHA ALCANTAR MD [facility] 04-22-2021 20:08-0500 Diastolic blood pressure 71 mm[Hg] RADHA ALCANTAR MD [facility] 04-22-2021 20:08-0500 Heart rate 88 /min RADHA ALCANTAR MD [facility] 04-22-2021 20:08-0500 Respiratory rate 16 /min RADHA ALCANTAR MD [facility] 04-22-2021 20:08-0500 Systolic blood pressure 117 mm[Hg] RADHA ALCANTAR MD [facility] 04-22-2021 19:05-0500 Body temperature 97.52 [degF] RADHA ALCANTAR MD [facility] 04-22-2021 19:05-0500 Diastolic blood pressure 64 mm[Hg] RADHA ALCANTAR MD [facility] 04-22-2021 19:05-0500 Heart rate 86 /min RADHA ALCANTAR MD [facility] 04-22-2021 19:05-0500 Mean blood pressure 77 mm[Hg] RADHA ALCANTAR MD [facility] 04-22-2021 19:05-0500 Reason For Taking VItal Signs RADHA ALCANTAR MD [facility] 04-22-2021 19:05-0500 Respiratory rate 16 /min RADHA ALCANTAR MD [facility] 04-22-2021 19:05-0500 Systolic blood pressure 104 mm[Hg] RADHA ALCANTAR MD [facility] 04-22-2021 18:51-0500 Body temperature 97.16 [degF] RADHA ALCANTAR MD [facility] 04-22-2021 18:51-0500 Diastolic Blood Pressure NBP 65 [address] [facility] 04-22-2021 18:51-0500 Heart rate 81 /min RADHA ALCANTAR MD [facility] 04-22-2021 18:51-0500 Mean blood pressure 77 mm[Hg] RADHA ALCANTAR MD [facility] 04-22-2021 18:51-0500 Respiratory rate 16 /min RADHA ALCANTAR MD [facility] 04-22-2021 18:51-0500 Systolic Blood Pressure NBP 122 [address] [facility] 04-22-2021 18:38-0500 Diastolic Blood Pressure NBP 69 [address] [facility] 04-22-2021 18:38-0500 Heart rate 77 /min RADHA ALCANTAR MD [facility] 04-22-2021 18:38-0500 Mean blood pressure 81 mm[Hg] RADHA ALCANTAR MD [facility] 04-22-2021 18:38-0500 Systolic Blood Pressure NBP 125 [address] [facility] 04-22-2021 18:23-0500 Diastolic Blood Pressure NBP 66 [address] [facility] 04-22-2021 18:23-0500 Mean blood pressure 79 mm[Hg] RADHA ALCANTAR MD [facility] 04-22-2021 18:23-0500 Systolic Blood Pressure NBP 116 [address] [facility] 04-22-2021 17:55-0500 Body temperature 96.98 [degF] RADHA ALCANTAR MD [facility] 04-22-2021 17:55-0500 Body temperature 99.19 [degF] RADHA ALCANTAR MD [facility] 04-22-2021 17:50-0500 Body temperature 99.18 [degF] RADHA ALCANTAR MD [facility] 04-22-2021 17:45-0500 Body temperature 99.14 [degF] RADHA ALCANTAR MD [facility] 04-22-2021 09:43-0500 Body height 167.6 cm RADHA ALCANTAR MD [facility] 04-22-2021 09:43-0500 Body weight 98.1 kg RADHA ALCANTAR MD [facility] 04-22-2021 09:43-0500 Diastolic blood pressure 80 mm[Hg] RADHA ALCANTAR MD [facility] 04-22-2021 09:43-0500 Heart rate 94 /min RADHA ALCANTAR MD [facility] 04-22-2021 09:43-0500 Systolic blood pressure 117 mm[Hg] RADHA ALCANTAR MD [facility] 04-20-2021 10:49-0500 Body temperature 98.42 [degF] EVENS VALENCIA MD [facility] 04-20-2021 10:49-0500 Diastolic blood pressure 84 mm[Hg] EVENS VALENCIA MD [facility] 04-20-2021 10:49-0500 Heart rate 88 /min EVENS VALENCIA MD [facility] 04-20-2021 10:49-0500 Respiratory rate 20 /min EVENS VALENCIA MD [facility] 04-20-2021 10:49-0500 Systolic blood pressure 128 mm[Hg] EVENS VALENCIA MD [facility] 03-16-2019 14:55-0400 Pulse (Heart Rate) 100 /min [facility] 03-16-2019 14:55-0400 Pulse Oximetry 100 % [facility]The [facility], [place] 03-16-2019 13:42-0400 Body Temperature 98.49 [degF] [facility]Spoke [facility], [place] 03-16-2019 13:42-0400 BP Diastolic 77 mm[Hg] [facility] [place] 03-16-2019 13:42-0400 BP Systolic 121 mm[Hg] [facility] [place] 03-16-2019 13:42-0400 Respiratory Rate 16 /min Lawrence [facility] [place] Encounters Encounter Date Encounter Type Care Provider Facility Start: 05-20-2023 End: 05-25-2023 ambulatory DEB PEARCE EMD TEACHER-GEOGRAPHIC INFORMATION SYSTEMS DIRECTOR Facility:B Start: 05-20-2023 End: 05-24-2023 Outreach Lab DEB PEARCE EMD TEACHER-GEOGRAPHIC INFORMATION SYSTEMS DIRECTOR [facility] Start: 05-20-2023 End: 05-21-2023 ambulatory DEB PEARCE EMD TEACHER-GEOGRAPHIC INFORMATION SYSTEMS DIRECTOR Facility:B Start: 10-12-2022 End: 10-13-2022 ambulatory SILAS GOMEZ EMD TEACHER-GEOGRAPHIC INFORMATION SYSTEMS DIRECTOR Facility:B Start: 10-12-2022 End: 10-12-2022 Patient encounter procedure SILAS GOMEZ EMD TEACHER-GEOGRAPHIC INFORMATION SYSTEMS DIRECTOR [facility] Start: 10-08-2022 End: 10-09-2022 ambulatory SILAS GOMEZ EMD TEACHER-GEOGRAPHIC INFORMATION SYSTEMS DIRECTOR Facility:B Start: 04-26-2022 End: 04-26-2022 Emergency department patient visit AZRA DIAZ MD [facility] Start: 02-05-2022 End: 02-05-2022 Subsequent hospital visit by physician Roberto Smith EMD TEACHER - GEOGRAPHIC INFORMATION SYSTEMS DIRECTOR Work Phone: [facility] CT Procedures Date Procedure Procedure Detail Performing Clinician Start: 11-06-2021 OPERATIVE REPORT Physic anette Generic Start: 11-06-2021 Urine test visual color cmprsn bismark Miner MD Work Phone: Start: 07-21-2021 Ct maxillofacial w/o contrast material [facility] Work Phone: Start: 04-22-2021 Robot assisted lapar oscopic cholecystectomy TING JAVIER EMD TEACHER-GEOGRAPHIC INFORMATION SYSTEMS DIRECTOR Start: 11-28-2020 Diagnostic laparosco py of female pelvis KAYLEEN ALBARRAN EMD TEACHER-GEOGRAPHIC INFORMATION SYSTEMS DIRECTOR Plan of Treatment Date Care Activity Detail Author Start: 12-10-2046 Pneumococcal 0-64 years Vaccine (2 of 2 - PPSV23) Pneumococcal 0-64 years Vaccine (2 of 2 - PPSV23) [facility] Start: 2046 Pneumococcal 0-64 years Vaccine (2 of 2) Pneumococcal 0-64 years Vaccine (2 of 2) [facility] Work Phone: Start: 2031 Shingles Vaccine (1 of 2) Shingles Vaccine (1 of 2) [facility] Work Phone: Start: 12-09-2028 DTaP/Tdap/Td vaccine (3 - Td or Tdap) DTaP/Tdap/Td vaccine (3 - Td or Tdap) [facility] Start: 12-09-2028 DTaP/Tdap/Td vaccine (3 - Td) DTaP/Tdap/Td vaccine (3 - Td) [place], [place] Start: 07-12-2025 Lipid panel Lipids [facility] Start: 01-07-2023 Screening for malignant neoplasm of cervix [facility] Start: 02-05-2022 End: 02-05-2022 Patient encounter procedure 02/05/2022 Appointment Radiology SAQIB Head CT Start: 01-29-2022 Influenza vaccination [facility] Start: 12-09-2021 Cervical cancer screen Cervical cancer screen [place], [place] Start: 07-12-2021 Lipid panel Lipid screen [facility] Start: 01-29-2021 Influenza vaccination Flu vaccine (#1) [facility] Start: 01-10-2021 End: 01-10-2021 Office Visit 01/10/2021 Office Visit Family Medicine Sophia Medellin MD [address] [place] [address] [phone] [facility] Start: 10-14-2020 End: 10-14-2020 Patient encounter procedure 10/14/2020 Appointment Radiology ANTOINE WOODWARDNA US Start: 10-14-2020 Subsequent hospital visit by physician 10/14/2020 Hospital Encounter Radiology Roberto Smith, EMD TEACHER - GEOGRAPHIC INFORMATION SYSTEMS DIRECTOR [address] [place] [address] [phone] Start: 01-09-2020 Screening for malignant neoplasm of cervix Cervical cancer screen [facility] Work Phone: Start: 01-08-2020 End: 01-08-2020 Office Visit 01/08/2020 Office Visit Family Medicine Sophia Medellin MD [address] [place] [address] [place] [address] [phone] [facility] Start: 12-10-2019 Lipid screen Lipid screen [place], [place] Start: 12-10-2019 Pneumococcal 0-64 years Vaccine (2 - PCV) Pneumococcal 0-64 years Vaccine (2 - PCV) [facility] Start: 06-20-2019 End: 06-20-2019 Office Visit 06/20/2019 Office Visit Family Medicine Sophia Medellin MD [address] [place] [address] [phone] [facility] Start: 01-29-2019 Influenza vaccination Flu vaccine (#1) [place], [place] Start: 2011 Screening for malignant neoplasm [...] Fa cility 02-22-2020 Influenza, injectabl e, Madin [place] Canine Kidney, preservative free, quadrivalent Roberto Luis [facility] Work Phone: 02-21-2020 influenza virus vacc ine, unspecified formulation KAYLEEN ALBARRAN EMD TEACHER-GEOGRAPHIC INFORMATION SYSTEMS DIRECTOR [facility] 02-23-2019 influenza virus vacc ine, unspecified formulation KAYLEEN ALBARRAN EMD TEACHER-GEOGRAPHIC INFORMATION SYSTEMS DIRECTOR [facility] 02-23-2019 Influenza, injectabl e, Madin Delmy Canine Kidney, preservative free, quadrivalent Lawrence Adusumilli [place], [place] 12-09-2018 pneumococcal polysaccharide vaccine, 23 valent Radha [place], [place] Payers Date Payer Category Payer Unknown [id number] 2019 Unknown [id number] 2018 Unknown xxxxxxxxxxxx [id number] 1981 Unknown [id number] [id number] 1981 Unknown [id number] [id number] [id number] 1981 Unknown [id number] [id number] 1981 Unknown [id number] [id number] 1981 Unknown [id number] [id number] [id number] Social History Date Type Detail Facility Start: 12-09-2018 End: 04-25-2020 Tobacco smoking status NHIS Never smoker [place], [place] Start: 12-09-2018 End: 03-16-2019 Alcohol intake Yes [facility] [place], [place] Sex Assigned At Not on file [facility] [place], [place] Start: 07-17-2019 End: 11-06-2021 Alcohol intake Current drinker of alcohol (finding) [facility] Work Phone: Start: 06-17-2015 End: 07-31-2020 Tobacco use and exposure Never used [facility] Work Phone: Start: 01-04-2020 History SDOH Alcohol Frequency 1 [employer] Work Phone: Start: 01-04-2020 History SDOH Financial 5 [facility] Work Phone: Start: 01-04-2020 History SDOH Transpo rt Med 2 [employer] [facility] Work Phone: Start: 1980 Sex Assigned At Female S [facility] Work Phone: Start: 10-27-2021 End: 11-06-2021 Exposure to SARS-CoV-2 (event) Not sure [facility] Work Phone: Start: 07-31-2020 End: 11-06-2021 Alcohol intake [facility] Work Phone: Sex Assigned At [facility] Start: 11-06-2021 History SDOH Alcohol Comment not currently [employer] Work Phone: Goals Date Patient Goal Desired Activity /State Functional Status Date Assessment Result Facility 04-26-2022 Functional Status Independent [facility] 04-26-2022 Functional Status Standard Safet y ID band on, Allergy Band on, Call device within reach, Bed in low position, Wheels locked, Upper/Half-Length side-rails up, Phone within reach, Safety level maintained [facility] Mental Status Date Assessment Result Facility 04-26-2022 Mental Status Orientation Oriented x 4 [facility] 04-26-2022 Mental Status [facility] Clinical Notes 03-11-2021 to 05-22-2023 Hilda Reyes [...] Locations *1: This test was performed at: [address], [address] [place] [address] ([place]) 10-12-2022 Note ORIGINAL FROM: [address] [address] PROCEDURE FOR: ROBERTO [place] [address] Home: PID#: [id number] Exam#: [id number] : 1980 Age: 42 TO: SILAS GOMEZ APRN [facility] [address] [address] Fax: NO FAX EXAMINATION: ULTRASOUND OF THE [...] Provider: SILAS GOMEZ CLINICAL: BILATERAL MAMMOGRAPHIC DENSITIES. [employer] Operator: VIJAYA JOHNSON RT(R) RDMS letter sent: Normal BI-RADS 1 and 2 Ultrasound BI-RADS: [address] [facility] 10-12-2022 Note ORIGINAL FROM: [place] [address] PROCEDURE FOR: ROBERTO NAVA [address] [place] [address] Home: PID#: [id number] Exam#: [id number] : 1980 Age: 42 TO: SILAS GOMEZ APRN [facility] [address] [id number] Fax: NO FAX EXAMINATION: ULTRASOUND OF THE [...] Provider: SILAS GOMEZ CLINICAL: BILATERAL MAMMOGRAPHIC DENSITIES. [employer] Operator: VIJAYA JOHNSON RT(R) RDMS letter sent: Normal BI-RADS 1 and 2 Ultrasound BI-RADS: [address] [facility] 04-26-2022 Hospital Discharge instructions Patient Education 04/26/2022 [...] Swelling, pain or redness in one leg 2031-[address] [employer] [place] [address]. All rights reserved. This information is not intended as a substitute for professional medical care. Always follow your healthcare professional's instructions. Follow Up Care 04/26/2022 00:35:01 With:SILAS GOMEZ Address: [address] [place] [phone] When:2-[address] [facility] 04-26-2022 Note Discharge Instructions Thank you for allowing [facility] to assist you with your healthcare needs. [...] SILAS GOMEZ When Within 2-4 days Where: [address] [place] [phone] Allergies Bactrim (Tongue swelling) seasonal enviromental (typical) [...] Swelling, pain or redness in one leg 8811-9660 [employer]. [address] [place] [address]. All rights reserved. This information is not intended as a substitute for professional medical care. Always follow your healthcare professional's instructions. Additional Information VACCINATE! IT SAVES LIVES! Members of the community who have not yet received the COVID-19 vaccine and would like to receive it can visit one of [facility] vaccine clinics. There are many vaccine clinic locations within the [facility]. For locations and available times, please visit [email or web address]. It is important to note that some COVID mobile vaccine clinics are held outdoors and may be canceled in rainy or stormy conditions. To learn more about pediatric vaccinations (ages 5-11), we invite you to visit the [facility] webpage. [email or web address]-[email or web address]-Freq [email or web address].html To learn more about the COVID-19 vaccine, we invite you to visit the [facility] website for a list of frequently asked questions. [email or web address] [email or web address] [facility] Patient Portal Access Instructions: Stay connected with your healthcare team and access your personal medical information anytime with the [facility] Patient Portal. If you would like a full copy of your medical records please contact the [facility] Medical Records Department Wednesday through Wednesday between 8a.m. and 4:30p.m. Please follow the directions below to access the portal: 1.Access the email account you provided upon registration to the [facility].2.Look for an invitation email from [facility].3.Open the email and access the invitation link: Accept Invitation to [facility] 3604.Fill in the required linder to create your account. Sign into [email or web address] with your username and password that you [...] you will allow to register on the [facility] Patient Portal for access to your information. You can also access the [facility] Patient Portal on the [employer] nesha. Simply click on Health Records under Health Data and then click on the [facility] logo. HOW TO SAFELY DISPOSE OF PRESCRIPTION [...] Call your local pharmacy or go to [email or web address] to find one close to you.3.Make use of household items: Use cat litter or old coffee grounds to dispose medications if other options are not available. Mix your drugs with these household products, seal them in an airtight container and throw it into the garbage. Call [facility]: [phone] to be sure your drugs can be [...] aware that I should contact my doctor. Patient/Tax Evaluator Signature: Date/Time: Relationship to Patient: Witness Name/Signature: Date/Time: [facility] 04-26-2022 Note ORIGINAL EXAMINATION: TWO XRAY VIEWS [...] Sign Date: 04/26/2022 2:07:26 AM Ordering Provider: [facility] 04-26-2022 Note ORIGINAL EXAMINATION: TWO XRAY VIEWS [...] Sign Date: 04/26/2022 2:07:26 AM Ordering Provider: [facility] 11-06-2021 History of Present illness Narrative brought [...] 4. Use a saline nasal spray (ex; Lamoure, [place], Afrin Non-Medicated, or Manuel-Synephrine Nasal) 2 to [...] our office at any time. OFFICE NUMBER: [phone] documented in this encounter [facility] Work Phone: 04-22-2021 Hospital Discharge instructions Patient Education 04/22/2021 19:22:49 1-[facility] Discharge Instructions Template (02/2018)(CUSTOM) [facility] SAME DAY [...] us better serve our patients. Form: 1522 (21531) R: 09/06 Follow Up Care 04/21/2021 16:34:08 With:RADHA ALCANTAR MD, Surgery Address: [phone] When: Unknown Comments:Follow-up as scheduled [facility] 04-20-2021 Hospital Discharge instructions Patient Education 04/20/2021 [...] worse Numbness or weakness in a leg 8018-6833 [employer]. [address] [place] [address]. All rights reserved. This information is not intended as a substitute for professional medical care. Always follow your healthcare professional's instructions. Follow Up Care 04/20/2021 10:41:10 With:RADHA ALCANTAR MD, Surgery Address: [phone] When: Unknown Comments:as scheduled , call wednesday. [facility] 03-11-2021 Note HNO ID: [id number] Author: Lou Donis APRN.GEOGRAPHIC INFORMATION SYSTEMS DIRECTOR Service: ? Author Type: Nurse Practitioner Type: Progress Notes Filed: 03/11/2021 5:41 PM Note Text: This note was created using [employer]art[employer]. Subjective Roberto Nava is a 40 year [...] in the interim. Stop at the front office medical assistant to set up [employer] if you are not already active as [...] visit summary. Th (more content not included)... [facility] Evaluation + Plan note Future Appointments Appointment Date:04/14/2021 01:00:00 PM Scheduled Provider:SILAS GOMEZ [facility] Appointment Type:PC OV ED Follow Up Appointment Date:04/14/2021 05:30:00 PM [place]uled Provider:[place] [id number] Location:[facility] Appointment Type:PT Outpatient Evaluation Appointment Date:05/21/2021 09:00:00 AM Scheduled Provider:SILAS GOMEZ Location:[facility] Appointment Type:PC Wellness Annual Diagnostic Tests PendingEstradiol Level 04/11/21Progesterone Level 04/11/21Testosterone Level Total 04/11/21 [facility] Evaluation + Plan note Future Appointments Appointment Date:04/28/2021 08:00:00 AM [place] [address] Location:[facility] Appointment Type:PT [facility] Appointment Date:05/12/2021 05:00:00 PM Scheduled Provider:[place] [address] Location:[facility] Appointment Type:PT [facility] Appointment Date:05/21/2021 09:00:00 AM Scheduled Provider:SILAS GOMEZ APRN-RADHA Location:[facility] Appointment Type:PC Wellness Annual Appointment Date:05/26/2021 09:00:00 AM [place] [address] Location:[facility] Appointment Type:PT [facility] Future Scheduled TestsNM Hepatobiliary Duct System Imaging 04/14/21 [facility] Evaluation + Plan note Future Appointments Appointment Date:06/23/2021 05:00:00 PM [place]uled [place] [address] Location:[facility] Appointment Type:PT [facility] Appointment Date:07/18/2021 09:30:00 AM Scheduled Provider:SILAS GOMEZ APRN-RADHA Location:[facility] Appointment Type:PC Wellness Female Future Scheduled TestsLipid Profile 06/16/22NM Hepatobiliary Duct System Imaging 04/14/21 [facility] Evaluation + Plan note Future Appointments Appointment Date:10/28/2021 04:30:00 PM Scheduled Provider:SILAS GOMEZ APRN-RADHA Location:[facility] Appointment Type:PC OV Follow Up Future Scheduled TestsGlucose Tolerance Test 4 Hour (AO) 18/22NM Hepatobiliary Duct System Imaging 04/14/21 [facility] Evaluation + Plan note Future Appointments Appointment Date:12/16/2021 09:00:00 AM Scheduled Provider:SILAS GOMEZ APRN-RADHA Location:[facility] Appointment Type:PC OV Follow Up Future Scheduled TestsGlucose Tolerance Test 4 Hour (AO) 18/22Lipid Profile 7/18/22NM Hepatobiliary Duct System Imaging 04/14/21 [facility] Evaluation + Plan note Future Appointments Appointment Date:07/20/2022 09:00:00 AM Scheduled Provider:SILAS GOMEZ Location:[facility] Appointment Type:PC OV Controlled Medication Future Scheduled TestsGlucose Tolerance Test 4 Hour (AO) 07/18/21Lipid Profile 12/15/21 [facility] Evaluation + Plan note Future Appointments Appointment Date:01/01/2023 07:00:00 AM Scheduled Provider:SILAS GOMEZ Location:[facility] Appointment Type:PC OV Follow Up Future Scheduled TestsLipid Profile 12/15/21 [facility] Evaluation + Plan note Future Appointments Appointment Date:06/14/2023 11:00:00 AM Scheduled Provider:GIOVANNI MALDONADO DO Location:[facility] Appointment Type:PC Wellness Annual Future Scheduled [id number] Hemoglobin 03/10/23Complete Blood Count 03/10/23Lipid Profile 03/10/23Hepatitis C Antibody IgG 03/10/23Complete Metabolic Panel 03/10/23 [facility] documented in this encounter [employer] Work Phone: Evaluation note* Diagnosis Lung nodules Other nonspecific abnormal finding of lung field documented in this encounter [facility] Work Phone: Evaluation note* Diagnosis Lung nodules Other nonspecific abnormal finding of lung field documented in this encounter [facility] Work Phone: Hospital course Narrative No data available for this section [facility] Hospital Discharge instructions No data available for this section [facility] Progress note No data available for this section [facility] Advance Directives No Advanced Directives Records FoundDocuments on File Type Date Recorded Patient Tax Evaluator Expl anation Advance Directives and Livin g Will Advance Directives and Livin g Will 09/21/2016 2:32 PM Power of Director Of Research And Development Latest Code Status on File Code Status Date Activated Date Inactivated Comments Full Code 09/17/2016 11:17 AM 09/17/2016 6:29 PM Documents on File Type Date Recorded Patient Tax Evaluator Expl anation ACP-Advance Directive ACP-Advance Directive 09/21/2016 2:32 PM ACP-Power of Director Of Research And Development Documents on File Type Date Recorded Patient Tax Evaluator Expl anation ACP-Advance Directive ACP-Power of Director Of Research And Development ACP-Advance Directive 09/21/2016 2:32 PM Latest Code Status on File Code Status Date Activated Date Inactivated Comments Full Code 11/06/2021 7:47 AM Full Code 09/17/2016 11:17 AM 09/17/2016 6:29 PM Documents on File Type Date Recorded Patient Tax Evaluator Expl anation ACP-Advance Directive 09/21/2016 2:32 PM Latest Code Status on File Code Status Date Activated Date Inactivated Comments Full Code 11/06/2021 7:47 AM 11/06/2021 2:34 PM Full Code 09/17/2016 11:17 AM 09/17/2016 6:29 PM Discharge Instructions * Attachments The following attachments cannot be sent through Care Everywhere. * Pneumonia (Senegalese) documented in this encounter Assessments Diagnosis Pneumonia [...] Specialty Diagnoses / Procedures Referred By Satya t Referred To Contact Radiology Diagnoses Lung nodules Procedures Low Dose Chest CT -Abnormal Lung Screen Follow up Roberto Smith S, EMD TEACHER - GEOGRAPHIC INFORMATION SYSTEMS DIRECTOR [address] [place] [address] Referral ID Status Reason Start Date Expiration Date Visits Re quested Visits Authorized [id number] Open 02/11/2022 02/11/2023 1 1 Additional Source Comments Reason for Visit (unrecogniz ed section and content) INFORMATION SOURCE (unrecogn ized section and content) DATE CREATED AUTHOR AUTHOR'S ORGANIZ ATION 09/17/2021 [facility] DATE CREATED AUTHOR AUTHOR'S ORGANIZ ATION 02/07/2022 [facility] DATE CREATED AUTHOR AUTHOR'S ORGANIZ ATION 06/01/2023 [facility] ([place]) Care Teams (unrecognized sec tion [...] MIN PRN, 4 doses, Starting on Jillian 6/02/19 at 1056, Until Discontinued, Pain Severe (7-10), [...] M.D. Member Role: Surgeon Address: Address: [address] [facility] [place] [address]- Name: SILAS GOMEZ Position: P4 Advanced Practice Nurse Med Service: Active Provider Member Role: Primary Care Physician Address: Address: [address] [place] [address]- Care Team Related Persons Name: RADHA NAVA Name: SATINDER NAVA Address: [facility] Address: Home [address], [place] [id number] [place] Address: [facility] [address], [place] [id number] Care Team Personnel Name: RADHA ALCANTAR MD Position: P4 Physician - General Surgery Member Role: Surgeon Address: Address: [address] [facility] [place] [address]- Name: SILAS GOMEZ CJ-GEOGRAPHIC INFORMATION SYSTEMS DIRECTOR Position: P4 Advanced Practice Nurse Member Role: Primary Care Physician Address: Address: [address] [facility] [place] [address]- Name: AZRA DIAZ MD Position: ED Physician Member Role: Attending Physician Address: Address: [facility] [address] [place] [address]- Care Team Related Persons Name: RADHA NAVA Name: SATINDER NAVA Address: [facility] Address: Home [address], [place] [id number] [place] Address: Temporary [address], [place] [id number] FOR RECORDS PERTAINING TO PATIENTS WHO ARE [...] BE BASED ON THE PRIMARY CLINICAL RECORDS. [facility] [employer] [facility]. provides no warranty or guarantee of the accuracy or completeness of information in this document.
[2023-06-07 07:44] LABS: Hematocrit 38.8 % (37-47); Hemoglobin 12.3 g/dL (12.0-15.0); Mean Corp Hgb Conc 31.7 g/dL (32-36); Mean Corpuscular Hgb 29.5 pg (27.0-32.0); Mean Platelet Vol. 9.2 fl (6.2-12.0); Platelet Count 355 K/mm3 (150-450); RBC Distribution Width CV 12.1 % (11.6-14.6); RBC Distribution Width SD 41.5 fl (35.1-43.9); Red Blood Count 4.17 M/mm3 (4.2-5.4); White Blood Count 8.5 K/mm3 (4.4-11.0)
[2023-06-07 08:08] LABS: Hemoglobin A1c 5.4 % (3.8-5.6)
[2023-06-07 08:21] LABS: ALB/GLOB Ratio 0.8 RATIO (0.9-2.4); AST(SGOT) 8 U/L (15-37); Alanine Aminotransfer ALT/SGPT 16 U/L (13-56); Albumin, Serum 2.9 g/dL (3.2-5.0); Alkaline Phosphatase 33 U/L (45-117); Anion Gap 3 (5-15); BUN 12 mg/dL (7-18); BUN/Creat Ratio 17.2 RATIO (10-20); Calcium,Total 8.6 mg/dL (8.5-10.1); Chloride 112 mmol/L (98-107); Cholesterol 139 mg/dL (200); EST Glomerular Filtration Rate 98 mL/min (>60); Est Glom Filt Rate - Afr Amer 119 mL/min (>60); Globulin 3.5 g/dL (2.2-4.2); Glucose 99 mg/dL (74-106); High Density Lipoprotein 66 mg/dL; Potassium 3.9 mmol/L (3.5-5.1); Protein, Total 6.4 g/dL (6.4-8.2); Sodium Level 141 mmol/L (136-145); Triglycerides 119 mg/dL; Very Low Density Lipoprotein 24 mg/dL (5-40)
[2023-06-07 09:21] LABS: Hepatitis C Antibody Non-Reactive (Nonreactive)
== END | disposition home or self-care (01) ==
LOC: LAB 06:46
PROVIDERS: PCP Student in an Organized Health Care Education/Training Program; Referring Provider Student in an Organized Health Care Education/Training Program; Visit Provider Student in an Organized Health Care Education/Training Program
DX: Z11.59 Encounter for screening for other viral diseases (principal); Z13.6 Encounter for screening for cardiovascular disorders
CPT/HCPCS: 36415; 80053; 80061; 83036; 85027; 86803

== ENCOUNTER → 2023-06-18 | Outpatient (CLI) | payer BC, SELFPAY ==
--- OUTSIDE RECORDS SUMMARY | 2023-06-18 16:31 | XMS RPT_ITS | CCD ---
Author Name Unknown Address [address] [place] [address] Organization [facility] Care Team Providers Care Biomechanical Engineer Name Role Phone Sophia Medellin Primary Care Provider DR SOPHIA MEDELLIN MD Primary Care Physician JASON ALBERTO, SILAS Primary Care Physician Sophia Medellin MD Primary Care Provider Unavailable Primary Care Provider GIOVANNI Garrett DO Primary Care Physician [phone] JASON ALBERTO, SILAS Primary Care Nj ALBERTO, SILAS Attending Nj ALBERTO, DEB Attending GIOVANNI Garrett DO Primary Care Unavailable CONCORD REMY, DEB Attending GIOVANNI Garrett DO Primary Care [facility] REMY, DEB Attending Jens MALDONADO DO GIOVANNI Primary Care Unavailable JASON ALBERTO, SILAS Primary Care Nj ALBERTO, SILAS Attending Nj goel Allergies Allergy Classification Reported Allergen(s) Allergy Type Date of Onset Reaction(s) Facility Sulfamethoxazole / Trimethoprim (3 sources) Sulfamethoxazole / Trimethoprim Drug Allergy 06-17-19 16 Swelling [facility] ([facility] sources) rosuvastatin Drug Allergy 01-03-20 19 Rash [place], [place] (18 sources) Sulfamethoxazole / Trimethoprim; Translations: [sulfamethoxazole-t rimethoprim] Drug Allergy 06-17-19 16 [place] (6 sources) seasonal enviromental Allergy to substance typical [facility] (2 sources) Doxycycline; Translations: [doxycycline] Drug Allergy Chest pain (finding) [facility] [place] (2 sources) FLUoxetine; Translations: [fluoxetine] Drug Allergy Upset stomach (finding) [facility] [place] Medications Current Medications Medication Drug Class(es) Dates Sig (Normalized) Sig (Original) Afrin 0.05% nasal Mist (4 sources) Start: 11-22-2020 take 1 dose nasal route twice daily as needed Afrin 0.05% nasal Mist Dose = 2 spray(s), Nostril, each, BID, PRN Sinus symptoms, 0 Refill(s) Start Date: 11/22/20 Status: Ordered [id number] 200 actuat albuterol 0.09 mg/actuat metered dose [...] every four hours as needed for pain [place] 325- 5 mg oral tablet Dose = [...] Body temperature 98.06 [degF] AZRA DIAZ MD [facility] 04-26-2022 00:39-0500 Diastolic Blood Pressure Non-Invasive 77 1 AZRA DIAZ MD [facility] 04-26-2022 00:39-0500 Heart rate 96 /min AZRA DIAZ MD [facility] 04-26-2022 00:39-0500 Respiratory rate 18 /min AZRA DIAZ MD [facility] 04-26-2022 00:39-0500 Systolic Blood Pressure Non-Invasive 129 1 AZRA DIAZ MD [facility] 11-06-2021 11:45-0400 Diastolic blood pressure 74 mm[Hg] [facility] Work Phone: [facility] 11-06-2021 11:45-0400 Heart rate 84 /min [facility] Work Phone: [facility] 11-06-2021 11:45-0400 Respiratory rate 18 /min [facility] Work Phone: [facility] 11-06-2021 11:45-0400 Systolic blood pressure 132 mm[Hg] [facility] Work Phone: [facility] 11-06-2021 11:30-0400 SaO2% (BldA) [Mass fraction] 96 % [facility] Work Phone: [facility] 11-06-2021 10:57-0400 Body temperature 98.71 [degF] [facility] Work Phone: [facility] 04-22-2021 20:08-0500 Body temperature 96.98 [degF] RADHA ALCANTAR MD [facility] 04-22-2021 20:08-0500 Diastolic blood pressure 71 mm[Hg] RADHA ALCANTAR MD [facility] 04-22-2021 20:08-0500 Heart rate 88 /min RADHA ALCANTAR MD [facility] 04-22-2021 20:08-0500 Respiratory rate 16 /min RADHA ALCANTAR MD [facility] 04-22-2021 20:08-0500 Systolic blood pressure 117 mm[Hg] RADHA ALCANTAR MD [facility] 04-22-2021 19:05-0500 Body temperature 97.52 [degF] RADHA ALCANTAR MD [facility] 04-22-2021 19:05-0500 Diastolic blood pressure 64 mm[Hg] RADHA ALCANTAR MD [facility] 04-22-2021 19:05-0500 Heart rate 86 /min RADHA ALCANTAR MD [facility] 04-22-2021 19:05-0500 Mean blood pressure 77 mm[Hg] RADHA ALCANTAR MD [facility] 04-22-2021 19:05-0500 Reason For Taking VItal Signs RADHA ALCANTAR MD [facility] 04-22-2021 19:05-0500 Respiratory rate 16 /min RADHA ALCANTAR MD [facility] 04-22-2021 19:05-0500 Systolic blood pressure 104 mm[Hg] RADHA ALCANTAR MD [facility] 04-22-2021 18:51-0500 Body temperature 97.16 [degF] RADHA ALCANTAR MD [facility] 04-22-2021 18:51-0500 Diastolic Blood Pressure NBP 65 1 RADHA ALCANTAR MD [facility] 04-22-2021 18:51-0500 Heart rate 81 /min RADHA ALCANTAR MD [facility] 04-22-2021 18:51-0500 Mean blood pressure 77 mm[Hg] RADHA ALCANTAR MD [facility] 04-22-2021 18:51-0500 Respiratory rate 16 /min RADHA ALCANTAR MD [facility] 04-22-2021 18:51-0500 Systolic Blood Pressure NBP 122 1 RADHA ALCANTAR MD [facility] 04-22-2021 18:38-0500 Diastolic Blood Pressure NBP 69 1 RADHA ALCANTAR MD [facility] 04-22-2021 18:38-0500 Heart rate 77 /min RADHA ALCANTAR MD [facility] 04-22-2021 18:38-0500 Mean blood pressure 81 mm[Hg] RADHA ALCANTAR MD [facility] 04-22-2021 18:38-0500 Systolic Blood Pressure NBP 125 1 RADHA ALCANTAR MD [facility] 04-22-2021 18:23-0500 Diastolic Blood Pressure NBP 66 1 RADHA ALCANTAR MD [facility] 04-22-2021 18:23-0500 Mean blood pressure 79 mm[Hg] RADHA ALCANTAR MD [facility] 04-22-2021 18:23-0500 Systolic Blood Pressure NBP 116 1 RADHA ALCANTAR MD [facility] 04-22-2021 17:55-0500 Body temperature 96.98 [degF] RADHA ALCANTAR MD [facility] 04-22-2021 17:55-0500 Body temperature 99.19 [degF] RADHA ALCANTAR MD [facility] 04-22-2021 17:50-0500 Body temperature 99.18 [degF] RADHA ALCANTAR MD [facility] 04-22-2021 17:45-0500 Body temperature 99.14 [degF] RADHA ALCANTAR MD [facility] 04-22-2021 09:43-0500 Body height 167.6 cm RADHA ALCANTAR MD [facility] 04-22-2021 09:43-0500 Body weight 98.1 kg RADHA ALCANTAR MD [facility] 04-22-2021 09:43-0500 Diastolic blood pressure 80 mm[Hg] RADHA ALCANTAR MD [facility] 04-22-2021 09:43-0500 Heart rate 94 /min RADHA ALCANTAR MD [facility] 04-22-2021 09:43-0500 Systolic blood pressure 117 mm[Hg] RADHA ALCANTAR MD [facility] 04-20-2021 10:49-0500 Body temperature 98.42 [degF] EVENS VALENCIA MD [facility] 04-20-2021 10:49-0500 Diastolic blood pressure 84 mm[Hg] EVENS VALENCIA MD [facility] 04-20-2021 10:49-0500 Heart rate 88 /min EVENS VALENCIA MD [facility] 04-20-2021 10:49-0500 Respiratory rate 20 /min EVENS VALENCIA MD [facility] 04-20-2021 10:49-0500 Systolic blood pressure 128 mm[Hg] EVENS VALENCIA MD [facility] 03-16-2019 14:55-0400 Pulse (Heart Rate) 100 /min [facility] [place] 03-16-2019 14:55-0400 Pulse Oximetry 100 % [facility], [place] 03-16-2019 13:42-0400 Body Temperature 98.49 [degF] [employer] [facility] 03-16-2019 13:42-0400 BP Diastolic 77 mm[Hg] [facility], [place] 03-16-2019 13:42-0400 BP Systolic 121 mm[Hg] [facility] 03-16-2019 13:42-0400 Respiratory Rate 16 /min [facility] [place] Encounters Encounter Date Encounter Type Care Provider Facility Start: 05-20-2023 End: 05-25-2023 ambulatory DEB PEARCE P[employer]ER MET[employer]-FIELD SERVICE SUPERVISOR Facility:B Start: 05-20-2023 End: 05-24-2023 Outreach Lab DEB PEARCE POURER MET[employer]-FIELD SERVICE SUPERVISOR [facility] Start: 05-20-2023 End: 05-21-2023 ambulatory DEB PEARCE P[employer]ER [employer]-FIELD SERVICE SUPERVISOR Facility:B Start: 10-12-2022 End: 10-13-2022 ambulatory SILAS GOMEZ P[employer]ER MET[employer]FIELD SERVICE SUPERVISOR Facility:B Start: 10-12-2022 End: 10-12-2022 Patient encounter procedure SILAS GOMEZ P[employer]ER MET[employer]FIELD SERVICE SUPERVISOR [facility] Start: 10-08-2022 End: 10-09-2022 ambulatory SILAS GOMEZ P[employer]ER [employer]FIELD SERVICE SUPERVISOR Facility:B Start: 04-26-2022 End: 04-26-2022 Emergency department patient visit AZRA DIAZ MD [facility] Start: 02-05-2022 End: 02-05-2022 Subsequent hospital visit by physician Roberto Smith POURER METAL - FIELD SERVICE SUPERVISOR Work Phone: [facility] Procedures Date Procedure Procedure Detail Performing Clinician Start: 11-06-2021 OPERATIVE REPORT Physic anette Generic Start: 11-06-2021 Urine test visual color cmprsn bismark Miner MD Work Phone: Start: 07-21-2021 Ct maxillofacial w/o contrast material [facility] Work Phone: Start: 04-22-2021 Robot assisted lapar oscopic cholecystectomy TING JAVIER POURER MET[employer]-FIELD SERVICE SUPERVISOR Start: 11-28-2020 Diagnostic laparosco py of female pelvis KAYLEEN ALBARRAN POURER METAL-FIELD SERVICE SUPERVISOR Plan of Treatment Date Care Activity Detail Author Start: 12-10-2046 Pneumococcal 0-64 years Vaccine (2 of 2 - PPSV23) Pneumococcal 0-64 years Vaccine (2 of 2 - PPSV23) [facility] Start: 2046 Pneumococcal 0-64 years Vaccine (2 of 2) Pneumococcal 0-64 years Vaccine (2 of 2) [facility] Work Phone: Start: 2031 Shingles Vaccine (1 of 2) Shingles Vaccine (1 of 2) [facility] Work Phone: Start: 12-09-2028 DTaP/Tdap/Td vaccine (3 - Td or Tdap) DTaP/Tdap/Td vaccine (3 - Td or Tdap) [facility] Start: 12-09-2028 DTaP/Tdap/Td vaccine (3 - Td) DTaP/Tdap/Td vaccine (3 - Td) [place] Start: 07-12-2025 Lipid panel Lipids [facility] Start: 01-07-2023 Screening for malignant neoplasm of cervix [facility] Start: 02-05-2022 End: 02-05-2022 Patient encounter procedure 02/05/2022 Appointment Radiology [facility] CT Start: 01-29-2022 Influenza vaccination [facility] Start: 12-09-2021 Cervical cancer screen Cervical cancer screen [place], [place] Start: 07-12-2021 Lipid panel Lipid screen [facility] Start: 01-29-2021 Influenza vaccination Flu vaccine (#1) [facility] Start: 01-10-2021 End: 01-10-2021 Office Visit 01/10/2021 Office Visit Family Medicine Sophia Medellin MD [address] [place] [address] [phone] [facility] Start: 10-14-2020 End: 10-14-2020 Patient encounter procedure 10/14/2020 Appointment Radiology ANTOINE [facility]OD[facility]AR[facility] Start: 10-14-2020 Subsequent hospital visit by physician 10/14/2020 Hospital Encounter Radiology Roberto Smith, POURER METAL - FIELD SERVICE SUPERVISOR [address] [place] [address] [phone] Start: 01-09-2020 Screening for malignant neoplasm of cervix Cervical cancer screen [facility] Work Phone: Start: 01-08-2020 End: 01-08-2020 Office Visit 01/08/2020 Office Visit Family Medicine Sophia Medellin MD [address] [place] [address] [place] [address] [phone] [facility] Start: 12-10-2019 Lipid screen Lipid screen [place], [place] Start: 12-10-2019 Pneumococcal 0-64 years Vaccine (2 - PCV) Pneumococcal 0-64 years Vaccine (2 - PCV) [facility] Start: 06-20-2019 End: 06-20-2019 Office Visit 06/20/2019 Office Visit Family Medicine Sophia Medellin MD [address] [place] [address] [phone] [facility] Start: 01-29-2019 Influenza vaccination Flu vaccine (#1) [place], [place] Start: 2011 Screening for malignant neoplasm [...] Fa cility 02-22-2020 Influenza, injectabl e, [place] Canine Kidney, preservative free, quadrivalent Roberto Luis [facility] Work Phone: 02-21-2020 influenza virus vacc ine, unspecified formulation KAYLEEN ALBARRAN POURER METAL-FIELD SERVICE SUPERVISOR [facility] 02-23-2019 influenza virus vacc ine, unspecified formulation KAYLEEN ALBARRAN POURER [employer]-FIELD SERVICE SUPERVISOR [facility] 02-23-2019 Influenza, injectabl e, [place]in [place] Canine Kidney, preservative free, quadrivalent Lawrence Adusumilli [place], [place] 12-09-2018 pneumococcal polysaccharide vaccine, 23 valent Radha [place] Payers Date Payer Category Payer Unknown [id number] 2019 Unknown [id number] 2018 Unknown xxxxxxxxxxxx [id number] 1981 Unknown [id number] [id number] 1981 Unknown [id number] [id number] 1981 Unknown [id number] [id number] [id number] 1981 Unknown [id number] [id number] [id number] 1980 Unknown [id number] [id number] Social History Date Type Detail Facility Start: 12-09-2018 End: 04-25-2020 Tobacco smoking status NHIS Never smoker [place], [place] Start: 12-09-2018 End: 03-16-2019 Alcohol intake Yes [facility] [place] [place] Sex Assigned At Not on file [place] [facility] [place], [place] Start: 07-17-2019 End: 11-06-2021 Alcohol intake Current drinker of alcohol (finding) [facility] Work Phone: Start: 06-17-2015 End: 07-31-2020 Tobacco use and exposure Never used [employer] [facility] Work Phone: Start: 01-04-2020 History SDOH Alcohol Frequency 1 [employer] [facility] Work Phone: Start: 01-04-2020 History SDOH Financial 5 [facility] Work Phone: Start: 01-04-2020 History SDOH Transpo rt Med 2 [employer] Work Phone: Start: 1980 Sex Assigned At Female S [facility] Work Phone: Start: 10-27-2021 End: 11-06-2021 Exposure to SARS-CoV-2 (event) Not sure [employer] [facility] Work Phone: Start: 07-31-2020 End: 11-06-2021 Alcohol intake [employer] [facility] [employer] [facility] Work Phone: Sex Assigned At [facility] Start: 11-06-2021 History SDOH Alcohol Comment not currently [employer] Work Phone: Goals Date Patient Goal Desired Activity /State Functional Status Date Assessment Result Facility 04-26-2022 Functional Status Independent [facility] 04-26-2022 Functional Status Standard Safet y ID band on, Allergy Band on, Call device within reach, Bed in low position, Wheels locked, Upper/Half-Length side-rails up, Phone within reach, Safety level maintained [facility] Mental Status Date Assessment Result Facility 04-26-2022 Mental Status Orientation Oriented x 4 [facility] 04-26-2022 Mental Status [facility] Clinical Notes 03-11-2021 to 05-22-2023 Hilda Reyes [...] Locations *1: This test was performed at: [address], [address] [place] [address] (PR) 10-12-2022 Note ORIGINAL FROM: [address] [address] PROCEDURE FOR: ROBERTO Peña [place] [address] Home: PID#: [id number] Exam#: [id number] : 1980 Age: 42 TO: SILAS GOMEZ APRN [facility] [address] [address] Fax: NO FAX EXAMINATION: ULTRASOUND OF THE [...] Provider: SILAS GOMEZ CLINICAL: BILATERAL MAMMOGRAPHIC DENSITIES. Threshing Machine Operator: VIJAYA JOHNSON RT(R) RDMS letter sent: Normal BI-RADS 1 and 2 Ultrasound BI-RADS: 2 Benign [facility] 10-12-2022 Note ORIGINAL FROM: [place] [address] PROCEDURE FOR: ROBERTO NAVA [address] [place] [address] Home: PID#: [id number] Exam#: [id number] : 1980 Age: 42 TO: SILAS GOMEZ APRN [facility] [address] [phone] Fax: NO FAX EXAMINATION: ULTRASOUND OF THE [...] Provider: SILAS GOMEZ CLINICAL: BILATERAL MAMMOGRAPHIC DENSITIES. Threshing Machine Operator: VIJAYA JOHNSON RT(R) RDMS letter sent: Normal BI-RADS 1 and 2 Ultrasound BI-RADS: 2 Benign [facility] 04-26-2022 Hospital Discharge instructions Patient Education 04/26/2022 [...] Swelling, pain or redness in one leg 7921-3123 [employer]. [address] [place] [address]. All rights reserved. This information is not intended as a substitute for professional medical care. Always follow your healthcare professional's instructions. Follow Up Care 04/26/2022 00:35:01 With:SILAS GOMEZ Address: [address] [place] [phone] When:2-4 days [facility] 04-26-2022 Note Discharge Instructions Thank you for allowing [facility] to assist you with your healthcare needs. [...] SILAS GOMEZ When Within 2-4 days Where: [address] [place] [phone] Allergies Bactrim (Tongue swelling) seasonal enviromental (typical) [...] Swelling, pain or redness in one leg 2896-8966 [employer]. [address] [place] [address]. All rights reserved. This information is not intended as a substitute for professional medical care. Always follow your healthcare professional's instructions. Additional Information VACCINATE! IT SAVES LIVES! Members of the community who have not yet received the COVID-19 vaccine and would like to receive it can visit one of [facility] vaccine clinics. There are many vaccine clinic locations within the [facility]. For locations and available times, please visit [email or web address]. It is important to note that some COVID mobile vaccine clinics are held outdoors and may be canceled in rainy or stormy conditions. To learn more about pediatric vaccinations (ages 5-11), we invite you to visit the [facility] webpage. [email or web address] [email or web address]-Nlexjhqxfwp-Freq [email or web address]-Cgignpznf.html To learn more about the COVID-19 vaccine, we invite you to visit the [facility] website for a list of frequently asked questions. [email or web address] [email or web address] [facility] Patient Portal Access Instructions: Stay connected with your healthcare team and access your personal medical information anytime with the [facility] Patient Portal. If you would like a full copy of your medical records please contact the [facility] Medical Records Department Wednesday through Wednesday between 8a.m. and 4:30p.m. Please follow the directions below to access the portal: 1.Access the email account you provided upon registration to the [facility].2.Look for an invitation email from [facility].3.Open the email and access the invitation link: Accept Invitation to [facility].Fill in the required linder to create your account. Sign into [email or web address] with your username and password that you [...] you will allow to register on the [facility] Patient Portal for access to your information. You can also access the [facility] Patient Portal on the NETpeas nesha. Simply click on Health Records under [...] Call your local pharmacy or go to [email or web address] to find one close to you.3.Make use of household items: Use cat litter or old coffee grounds to dispose medications if other options are not available. Mix your drugs with these household products, seal them in an airtight container and throw it into the garbage. Call [facility]: [phone] to be sure your drugs can be [...] aware that I should contact my doctor. Patient/Epic Ambulatory Analyst Signature: Date/Time: Relationship to Patient: Witness Name/Signature: Date/Time: [facility] 04-26-2022 Note ORIGINAL EXAMINATION: TWO [...] 04/26/2022 2:07:26 AM Ordering Provider: [facility] 04-26-2022 Note ORIGINAL EXAMINATION: TWO XRAY VIEWS [...] 04/26/2022 2:07:26 AM Ordering Provider: [facility] 11-06-2021 History of Present illness Narrative brought [...] 4. Use a saline nasal spray (ex; [place], [place], Afrin Non-Medicated, or Manuel-Synephrine Nasal) 2 to [...] our office at any time. OFFICE NUMBER: [phone] documented in this encounter [facility] Work Phone: 04-22-2021 Hospital Discharge instructions Patient Education 04/22/2021 19:22:49 1-[facility] Discharge Instructions Template (02/2018)(CUSTOM) [facility] SAME DAY [...] us better serve our patients. Form: 1522 (87511) R: 09/06 Follow Up Care 04/21/2021 16:34:08 With:RADHA ALCANTAR MD, Surgery Address: [phone] When: Unknown Comments:Follow-up as scheduled [facility] 04-20-2021 Hospital Discharge instructions Patient Education 04/20/2021 [...] worse Numbness or weakness in a leg 5941-9552 [employer]. [address] [place] [address]. All rights reserved. This information is not intended as a substitute for professional medical care. Always follow your healthcare professional's instructions. Follow Up Care 04/20/2021 10:41:10 With:RADHA ALCANTAR MD, Surgery Address: [phone] When: Unknown Comments:as scheduled , call wednesday. [facility] 03-11-2021 Note HNO ID: [id number] Author: Lou Donis APRN.FIELD SERVICE SUPERVISOR Service: ? Author Type: Nurse Practitioner Type: Progress Notes Filed: 03/11/2021 5:41 PM Note Text: This note was created using [employer]. Subjective Roberto Nava is a 40 year [...] isolation in the interim. Stop at the lead front end developer to set up HengZhit if you are not already active as [...] visit summary. Th (more content not included)... [facility] Evaluation + Plan note Future Appointments Appointment Date:04/14/2021 01:00:00 PM Scheduled Provider:SILAS GOMEZ Location:[facility] Appointment Type:PC OV ED Follow Up Appointment Date:04/14/2021 05:30:00 PM Scheduled Provider:[place] [id number] Location:[facility] Appointment Type:PT Outpatient Evaluation Appointment Date:05/21/2021 09:00:00 AM Scheduled Provider:SILAS GOMEZ Location:[facility] Appointment Type:PC Wellness Annual Diagnostic Tests PendingEstradiol Level 04/11/21Progesterone Level 04/11/21Testosterone Level Total 04/11/21 [facility] Evaluation + Plan note Future Appointments Appointment Date:04/28/2021 08:00:00 AM [place]uled Provider:[place] [id number] Location:[facility] Appointment Type:PT [facility] Appointment Date:05/12/2021 05:00:00 PM [place]uled Provider:[place] [id number] Location:[facility] Appointment Type:PT [facility] Appointment Date:05/21/2021 09:00:00 AM Scheduled Provider:SILAS GOMEZ APRN-RADHA Location:[facility] Appointment Type:PC Wellness Annual Appointment Date:05/26/2021 09:00:00 AM [place] [id number] Location:[facility] Appointment Type:PT [facility] Future Scheduled TestsNM Hepatobiliary Duct System Imaging 04/14/21 [facility] Evaluation + Plan note Future Appointments Appointment Date:06/23/2021 05:00:00 PM [place]uled [place] [id number] Location:[facility] Appointment Type:PT [facility] Appointment Date:07/18/2021 09:30:00 AM Scheduled Provider:SILAS GOMEZ APRN-RADHA Location:[facility] Appointment Type:PC Wellness Female Future Scheduled TestsLipid Profile 06/16/22NM Hepatobiliary Duct System Imaging 04/14/21 [facility] Evaluation + Plan note Future Appointments Appointment Date:10/28/2021 04:30:00 PM Scheduled Provider:SILAS GOMEZ APRN-RADHA Location:[facility] Appointment Type:PC OV Follow Up Future Scheduled TestsGlucose Tolerance Test 4 Hour (AO) 18/22NM Hepatobiliary Duct System Imaging 04/14/21 [facility] Evaluation + Plan note Future Appointments Appointment Date:12/16/2021 09:00:00 AM Scheduled Provider:SILAS GOMEZ APRN-RADHA Location:[facility] Appointment Type:PC OV Follow Up Future Scheduled TestsGlucose Tolerance Test 4 Hour (AO) 18/22Lipid Profile 7/18/22NM Hepatobiliary Duct System Imaging 04/14/21 [facility] Evaluation + Plan note Future Appointments Appointment Date:07/20/2022 09:00:00 AM Scheduled Provider:SILAS GOMEZ Location:[facility] Appointment Type:PC OV Controlled Medication Future Scheduled TestsGlucose Tolerance Test 4 Hour (AO) 07/18/21Lipid Profile 12/15/21 [facility] Evaluation + Plan note Future Appointments Appointment Date:01/01/2023 07:00:00 AM Scheduled Provider:SILAS GOMEZ Location:[facility] Appointment Type:PC OV Follow Up Future Scheduled TestsLipid Profile 12/15/21 [facility] Evaluation + Plan note Future Appointments Appointment Date:06/14/2023 11:00:00 AM Scheduled Provider:GIOVANNI MALDONADO DO Location[facility] Appointment Type:PC Wellness Annual Future Scheduled XaclcT5M Hemoglobin 03/10/23Complete Blood Count 03/10/23Lipid Profile 03/10/23Hepatitis C Antibody IgG 03/10/23Complete Metabolic Panel 03/10/23 [facility] documented in this encounter [facility] Work Phone: Evaluation note* Diagnosis Lung nodules Other nonspecific abnormal finding of lung field documented in this encounter [facility] Work Phone: Evaluation note* Diagnosis Lung nodules Other nonspecific abnormal finding of lung field documented in this encounter [facility] Work Phone: Hospital course Narrative No data available for this section [facility] Hospital Discharge instructions No data available for this section [facility] Progress note No data available for this section [facility] Advance Directives No Advanced Directives Records FoundDocuments on File Type Date Recorded Patient Epic Ambulatory Analyst Expl anation Advance Directives and Livin g Will Advance Directives and Livin g Will 09/21/2016 2:32 PM Power of Supervisor [employer] Latest Code Status on File Code Status Date Activated Date Inactivated Comments Full Code 09/17/2016 11:17 AM 09/17/2016 6:29 PM Documents on File Type Date Recorded Patient Epic Ambulatory Analyst Expl anation ACP-Advance Directive ACP-Advance Directive 09/21/2016 2:32 PM ACP-Power of Supervisor [employer] Documents on File Type Date Recorded Patient Epic Ambulatory Analyst Expl anation ACP-Advance Directive ACP-Power of Supervisor [employer] ACP-Advance Directive 09/21/2016 2:32 PM Latest Code Status on File Code Status Date Activated Date Inactivated Comments Full Code 11/06/2021 7:47 AM Full Code 09/17/2016 11:17 AM 09/17/2016 6:29 PM Documents on File Type Date Recorded Patient Epic Ambulatory Analyst Expl anation ACP-Advance Directive 09/21/2016 2:32 PM Latest Code Status on File Code Status Date Activated Date Inactivated Comments Full Code 11/06/2021 7:47 AM 11/06/2021 2:34 PM Full Code 09/17/2016 11:17 AM 09/17/2016 6:29 PM Discharge Instructions * Attachments The following attachments cannot be sent through Care Everywhere. * Pneumonia ([place]) documented in this encounter Assessments Diagnosis Pneumonia [...] Lung Screen Follow up Roberto Smith S, [employer]ELD SERVICE SUPERVISOR [address] [place] [address] Referral ID Status Reason Start Date Expiration Date Visits Re quested Visits Authorized [id number] Open 02/11/2022 02/11/2023 1 1 Additional Source Comments Reason for Visit (unrecogniz ed section and content) INFORMATION SOURCE (unrecogn ized section and content) DATE CREATED AUTHOR AUTHOR'S ORGANIZ ATION 09/17/2021 [facility] DATE CREATED AUTHOR AUTHOR'S ORGANIZ ATION 02/07/2022 [facility] DATE CREATED AUTHOR AUTHOR'S ORGANIZ ATION 06/01/2023 [facility] ([place]) Care Teams (unrecognized [...] M.D. Member Role: Surgeon Address: Address: [address] [facility] [place] [address]- Name: SILAS GOMEZ Position: P4 Advanced Practice Nurse Med Service: Active Provider Member Role: Primary Care Physician Address: Address: [address] [place] [id number]- Care Team Related Persons Name: RADHA NAVA Name: SATINDER NAVA Address: [facility] Address: Home [address] [place], [place] [id number] [place] Address: [place] [address], [place] [id number] Care Team Personnel Name: RADHA ALCANTAR MD Position: P4 Physician - General Surgery Member Role: Surgeon Address: Address: [address] [facility] [place] [address]- Name: SILAS GOMEZ CJ-FIELD SERVICE SUPERVISOR Position: P4 Advanced Practice Nurse Member Role: Primary Care Physician Address: Address: [address] [facility] [place] [address]- Name: AZRA DIAZ MD Position: ED Physician Member Role: Attending Physician Address: Address: [facility] [address] [place] [address]- Care Team Related Persons Name: RADHA NAVA Name: SATINDER NAVA Address: [facility] Address: Home [address], [place] [id number] [place] Address: Temporary [address], [place] [id number] FOR RECORDS PERTAINING TO PATIENTS WHO ARE [...] BE BASED ON THE PRIMARY CLINICAL RECORDS. [facility] [employer] [facility]. provides no warranty or guarantee of the accuracy or completeness of information in this document.
== END | disposition home or self-care (01) ==
LOC: LABSPEC 16:24
PROVIDERS: PCP Student in an Organized Health Care Education/Training Program; Referring Provider Advanced Practice Midwife; Visit Provider Advanced Practice Midwife
DX: R30.0 Dysuria (principal)
CPT/HCPCS: 87086

== ENCOUNTER → 2024-04-26 | Outpatient (CLI) | payer BC, SELFPAY ==
[2024-05-05 13:07] LABS: HPV APTIMA, High Risk Negative (Negative)
== END | disposition home or self-care (01) ==
LOC: LABSPEC 15:12
PROVIDERS: PCP Student in an Organized Health Care Education/Training Program; Referring Provider Advanced Practice Midwife; Visit Provider Advanced Practice Midwife
DX: Z12.4 Encounter for screening for malignant neoplasm of cervix (principal)
CPT/HCPCS: 87624; 88175; G0145

== ENCOUNTER → 2024-05-23 | Outpatient (CLI) | payer BC, SELFPAY ==
--- NOTE | 2024-05-23 07:06 | BI_ITS ---
MAMMOGRAPHY - BILATERAL SCREENING 3-D TOMOSYNTHESIS REASON FOR EXAM: Female, 44 years old. screening mammogram PERTINENT HISTORY: No significant family history. TECHNIQUE: 2-D mammograms and 3-D Tomosynthesis of the breast (s) were performed. CAD was performed. COMPARISON: 10/08/2022 FINDINGS: The breast composition is heterogeneously dense that can obscure small breast masses. Scattered benign calcifications are seen. No dense spiculated masses or suspicious microcalcifications are identified. No architectural distortion is identified. There is no skin thickening or retraction. There has been no significant change since the prior study. BI/SCRN MAMM (CAD)W/LEE BILAT IMPRESSION: No mammographic signs of malignancy. Routine yearly mammograms recommended. ASSESSMENT CATEGORY: BIRADS Category 1: Negative. A letter regarding these results will be sent to the patient by the facility within 30 days. FOLLOW UP RECOMMENDATION: Yearly follow up mammogram recommended. (A) Approximately 10% of breast cancers are not detected by mammography. A normal mammogram should not delay biopsy of a clinically suspicious abnormality. Electronically Signed: Joaquín Melton MD at 15:35 EST ,
== END | disposition home or self-care (01) ==
LOC: OPBI 07:04
PROVIDERS: PCP Student in an Organized Health Care Education/Training Program; Referring Provider Advanced Practice Midwife; Visit Provider Advanced Practice Midwife
DX: Z12.31 Encounter for screening mammogram for malignant neoplasm of breast (principal)
CPT/HCPCS: 77063; 77067

== ENCOUNTER → 2025-05-25 | Outpatient (CLI) | payer BC, SELFPAY ==
--- NOTE | 2025-05-25 08:24 | BI_ITS ---
EXAM: SCRN MAMM (CAD)W/LEE BILAT DATE: 05/25/2025 CLINICAL HISTORY: F, Age 45 y/o , SCREENING TECHNIQUE: Procedure Code: [id number] Modality: MG Procedure: SCRN MAMM (CAD)W/LEE BILAT COMPARISON: Prior exam(s) dated screening mammogram studies dated 05/23/2024. FINDINGS: TISSUE DENSITY: The breasts are heterogeneously dense, which may obscure small masses. Volpara categorized the density as a high B. The tissue however is heterogeneously dense throughout. Bilateral Breast Mammographic Findings: Benign round microcalcifications are seen in both breasts. No suspicious masses, suspicious cluster of microcalcifications, architectural distortion or secondary signs of malignancy is identified in either breast. BI/SCRN MAMM (CAD)W/LEE BILAT IMPRESSION: Benign screening mammogram OVERALL FINAL ASSESSMENT BI-RADS 2: BENIGN RECOMMENDATION: Routine annual follow-up in 1 Year Additional Recommendation none A letter with findings and recommendations will be mailed to the patient. Reading Location: [id number]
--- OUTSIDE RECORDS SUMMARY | 2025-05-25 08:26 | XMS RPT_ITS | CCD ---
Author Organization [facility] Care Team Providers Care Police Inspector Name Role Phone Rodney Medellin Primary Care Provider DR RODNEY MEDELLIN MD Primary Care Physician JASON CORONA-RADHA, SILAS Primary Care Physician Rodney Medellin MD Primary Care Provider Unavailable Primary Care Provider Unavailrebeca Gomez ADDICTION COUNSELOR, ADDICTION COUNSELOR-C Silas Primary Care Provider Jason ADDICTION COUNSELOR, ADDICTION COUNSELOR-C Silas Referring Provider [phone] LORA Higuera Attending Provider [phone] GIOVANNI MALDONADO DO Primary Care Physician [phone] Dr. Giovanni Maldonado Primary Care Provider DEB VILLEGAS Attending Unavailrebeca e JOEL HOLGUIN, GIOVANNI Primary Care Unavailable AUBURN DEB ALBERTO Attending Unavailrebeca e GIOVANNI MALDONADO DO Primary Care Unavailable AUBURN DEB ALBERTO Attending Unavailabl e JOEL HOLGUIN, GIOVANNI Primary Care Unavailable HALHUMBERTO DO, GIOVANNI Primary Care Unavailable GIOVANNI MALDONADO DO Attending Unavailable Joel OWENS DO, Michael A Primary Care Provider [phone] Giovanni Maldonado Referring Unavailable Flaquita Higuera Attending Unavailable Joel, Giovanni Primary Care Unavailable Flaquita Higuera Attending Unavailable Flaquita Higuera Referring Unavailable Halhumberto, Giovanni Primary Care Unavailable Flaquita Higuera Attending Unavailable Flaquita Higuera Referring Unavailable HalGiovanni paul Primary Care Unavailable HalGiovanni paul Referring Unavailable Cassidy Bianchi Attending Unavailable Giovanni Maldonado Primary Care Unavailable HALGIOVANNI PAUL DO Attending Unavailable HALKO DO, GIOVANNI Primary Care Unavailable HALKO DO, GIOVANNI Primary Care Unavailable HALHUMBERTO HOLGUIN, GIOVANNI Attending Unavailable GIOVANNI MALDONADO IV Primary Care Unavailable ADRIAN JESUS Attending Unavailable Allergies Allergy Classification Reported Allergen(s) Allergy Type Date of Onset Reaction(s) Facility Doxycycline (1 source) Doxycycline; Translations: [doxycycline] Drug Allergy Chest pain (finding) [facility] [place] Serotonin Reuptake Inhibitors (SSRIs) (1 source) FLUoxetine; Translations: [fluoxetine] Drug Allergy Upset stomach (finding) [facility] [place] Sulfamethoxazole / Trimethoprim (5 sources) Sulfamethoxazole / Trimethoprim; Translations: [sulfamethoxazole-t rimethoprim] Drug Allergy 06-17-19 16 Swelling [facility] (2 sources) rosuvastatin Drug Allergy 01-03-20 19 Rash [place], [place] (20 sources) Sulfamethoxazole / Trimethoprim; Translations: [sulfamethoxazole-t rimethoprim] Drug Allergy 06-17-19 16 Swelling [place], [place] (8 sources) seasonal enviromental Allergy to substance typical [facility] (5 sources) Sulfamethoxazole Drug Allergy 04-10-20 21 Angioedema [facility] (5 sources) Trimethoprim Drug Allergy 04-10-20 21 Angioedema [facility] (3 sources) Doxycycline; Translations: [doxycycline] Drug Allergy Chest pain (finding) [facility] [place] (3 sources) FLUoxetine; Translations: [fluoxetine] Drug Allergy Upset stomach (finding) [facility] [place] (1 source) Sulfamethoxazole Drug Allergy 05-23-20 [facility] (1 source) Trimethoprim Drug Allergy 05-23-20 [facility] Medications Current Medications Medication Drug Class(es) Dates Sig (Normalized) Sig (Original) Afrin 0.05% nasal Mist (4 sources) Start: 11-22-2020 take 1 dose nasal route twice daily as needed Afrin 0.05% nasal Mist Dose = 2 spray(s), Nostril, each, BID, PRN Sinus symptoms, 0 Refill(s) Start Date: 11/22/20 Status: Ordered [id number] actuat albuterol 0.09 mg/actuat metered dose inhaler (14 sources) beta2-Adrenergic Agonist Start: 06-24-2020 take 2 puff(s) by inhalation every six hours as needed for wheezing albuterol sulfate HFA (VENTOLIN HFA) 108 (90 Base) MCG/ACT inhaler Indications: Mild intermittent asthma without complication Inhale 2 puffs into the lungs every 6 hours as needed for Wheezing 1 Inhaler 5 06/24/2020 Active Start: 06-24-2020 take 2 puff(s) by in halation every six hours as needed for wheezing albuterol sulfate HFA (VENTOLIN HFA) 108 (90 Base) MCG/ACT inhaler Indications: Mild intermittent asthma without complication Inhale 2 puffs into the lungs every 6 hours as needed for Wheezing 1 Inhaler 5 06/24/2020 Active Start: 03-16-2019 albuterol (PRO VENTIL) nebulizer solution 2.5 mg Start: 12-09-2018 take 2 puff(s) by in halation every six hours as needed for wheezing albuterol sulfate HFA (PROVENTIL HFA) 108 (90 Base) MCG/ACT inhaler Inhale 2 puffs into the lungs every 6 hours as needed for Wheezing 1 Inhaler 0 03/16/2019 Active albuterol MDI (90 mcg/inh) CFC free inhalation aerosol (12 sources) Start: 06-12-2024 End: 12-09-2024 take 2 puff(s) by inhalation every four hours as needed for wheezing albuterol MDI (90 mcg/inh) CFC free inhalation aerosol 2 puff(s), Inhalation, q4h, PRN as needed for wheezing, # 18 gram(s), 5 Refill(s), Pharmacy: [facility]/pharmacy #[id number], URI - Upper respiratory infection, 165, cm, 06/12/24 15:49:00 EST, Height, kg, 06/12/24 15:49:00 EST, Dosing Weight Start Date: 06/12/24 Stop Date: 12/09/24 Status: Ordered Quantity: 18.0 Unit: g Repeat number: 6 Indication: Acute upper respiratory infection, unspecified Start: 10-28-2021 End: 10-23-2022 take 2 puff(s) by inhalation every four hours as needed for wheezing albuterol MDI (90 mcg/inh) CFC free inhalation aerosol 2 puff(s), Inhalation, q4h, PRN as needed for wheezing, # 18 gram(s), 3 Refill(s), Pharmacy: [facility]/pharmacy #[id number], URI - Upper respiratory infection, 165.5, cm, 10/28/21 16:41:00 EDT, Height, kg, 10/28/21 16:41:00 EDT, Dosing Weight Start Date: 10/28/21 Stop Date: 10/23/22 Status: Ordered Start: 07-18-2021 take 2 puff(s) by in halation every four hours as needed for wheezing albuterol MDI (90 mcg/inh) CFC free inhalation aerosol 2 puff(s), Inhalation, q4h, PRN as needed for wheezing, # 8.5 gram(s), 0 Refill(s), Pharmacy: [facility], URI - Upper respiratory infection, 167, cm, 07/18/21 9:30:00 EST, Height, kg, 07/18/21 9:30:00 EST, Dosing Weight Start Date: 07/18/21 Status: Ordered Start: 07-23-2019 take 2 puff(s) by in halation every four hours as needed for wheezing albuterol MDI (90 mcg/inh) CFC free inhalation aerosol 2 puff(s), Inhalation, q4h, PRN as needed for wheezing, # 8.5 gram(s), 0 Refill(s), URI - Upper respiratory infection Start Date: 07/23/19 Status: Ordered amoxicillin 500 mg oral tablet (6 sources) Penicillin-class Antibacterial Start: 08-06-2020 take 1 tablet by mouth three times daily Amoxicillin 500 MG TABS Take 500 mg by mouth 3 times daily 21 tablet 0 08/06/2020 Active amoxicillin 875 mg / clavulanate 125 mg oral tablet (1 source) Penicillin-class Antibacterial Start: 03-15-2019 End: 03-22-2019 take 1 tablet by mouth twice daily amoxicillin-clavu lanate (AUGMENTIN) 875-125 MG per tablet Indications: Acute bacterial sinusitis , Right otitis media, unspecified otitis media type Take 1 tablet by mouth 2 times daily for 7 days 14 tablet 0 03/15/2019 03/22/2019 Active 24 hr amphetamine aspartate 3.75 mg / amphetamine sulfate 3.75 mg / dextroamphetamine saccharate 3.75 mg / dextroamphetamine sulfate 3.75 mg extended release oral capsule (1 source) Central Nervous System Stimulant Start: 04-13-2022 End: 05-13-2022 Adderall XR 15 mg oral capsule, extended release Dose : 15 mg = 1 cap(s), Oral, qAM, # 30 cap(s), 0 Refill(s), Pharmacy: [facility]/pharmacy #[id number], ADHD (attention deficit hyperactivity disorder), 165, cm, 04/13/22 16:33:00 EST, Height, 105.2 Start Date: 04/13/22 Stop Date: 05/13/22 Status: Ordered azelastine hydrochloride 0.137 mg/actuat metered dose nasal spray (20 sources) Histamine-1 Receptor Antagonist Start: 04-10-2021 Azelastine Active INTRANASAL April 10, 2021 12:00am Start: 11-22-2020 azelastine 137 mcg/inh (0.1%) nasal spray Nasal, BID, 0 Refill(s) Start Date: 11/22/20 Status: Ordered Repeat number: 1 Start: 07-11-2019 azelastine ( TELIN,ASTEPRO) 0.1% nasal spray 07/11/2019 Active take 1 drop(s) into the eye(s) twice daily azelastine (OPTIVAR) 0.05 % ophthalmic solution 1 drop 2 times daily 0 Active azelastine 137 mcg/inh (0.1%) nasal spray (4 sources) Start: 11-22-2020 azelastine 137 mcg/inh (0.1%) nasal spray Nasal, BID, 0 Refill(s) Start Date: 11/22/20 Status: Ordered azithromycin 250 mg oral tablet (2 sources) Macrolide Antimicrobial Start: 06-12-2024 End: 06-17-2024 azithromycin 250 mg oral tablet Dose : 250 mg = 1 tab(s), Oral, qDay, 2 tabs on day one, then one tab daily, X 5 day(s), # 6 tab(s), 0 Refill(s), 06/17/24 4:30:00 PM EST, Pharmacy: [facility]/pharmacy #[id number], 165, cm, 06/12/24 15:49:00 EST, Height, 106.1, kg, 06/12/24 15:49:00 EST, Dosing Weight Start Date: 06/12/24 Stop Date: 06/17/24 Status: Ordered Quantity: 6.0 Unit: tab(s) Repeat number: 1 Start: 03-16-2019 End: 03-20-2019 azithromycin (ZITHROMAX Z-PA K) 250 MG tablet Take 2 tablets (500 mg) on Day 1, and then take 1 tablet (250 mg) on days 2 through 5. 1 packet 0 03/16/2019 03/20/2019 Active brompheniramine maleate 0.4 mg/ml / dextromethorphan hydrobromide 2 mg/ml / pseudoephedrine hydrochloride 6 mg/ml oral solution (6 sources) alpha-Adrenergic Agonist, Uncompetitive U-jzczjg-X-aspartate Receptor Antagonist, Sigma-1 Agonist Start: 08-13-2020 take 10 mL by mouth four times daily as needed for cough fruxkhnuibupicx-hrrgdwfopsmvijb-CO 2-30-10 MG/5ML syrup Take 10 mLs by mouth 4 times daily as needed for Congestion or Cough 240 mL 0 08/13/2020 Active 24 hr buPROPion hydrochloride 300 mg extended release oral tablet (10 sources) Aminoketone Start: 11-22-2023 End: 05-20-2024 WELLBUTRIN XL 300 mg 24 hr t ablet 300 mg. 11/22/2023 Active Start: 11-22-2023 End: 08-22-2024 take 1 tablet by mouth every hour, then take 1 tablet by mouth once daily Wellbutrin XL 300 mg/24 hours oral tablet, extended release Dose : 300 mg = 1 tab(s), Oral, qDay, # 30 tab(s), 0 Refill(s), Pharmacy: [facility]/pharmacy #[id number], 165, cm, 02/24/24 11:00:00 EDT, Height, kg, 02/24/24 11:00:00 EDT, Dosing Weight Start Date: 02/24/24 Status: Ordered Quantity: 30.0 Unit: tab(s) Repeat number: 1 Start: 03-13-2022 End: 03-27-2022 take 1 tablet by mouth every hour, then take 1 tablet by mouth every twenty-four hours buPROPion 150 mg/24 hours (XL) oral tablet, extended release Dose : 150 mg = 1 tab(s), Oral, q24h, # 14 tab(s), 0 Refill(s), [id number], 165.5, cm, 12/16/21 9:03:00 EDT, Height, kg, 03/13/22 9:11:00 EDT, Dosing Weight Start Date: 03/13/22 Stop Date: 03/27/22 Status: Ordered Start: 10-28-2021 take 1 tablet by don th every hour, then take 1 tablet by mouth every twenty-four hours buPROPion 150 mg/24 hours (XL) oral tablet, extended release Dose : 150 mg = 1 tab(s), Oral, q24h, # 90 tab(s), 0 Refill(s), [id number], 165.5, cm, 10/28/21 16:41:00 EDT, Height Start Date: 10/28/21 Status: Ordered take 1 tablet by don th once daily in the morning buPROPion (WELLBUTRIN XL) 150 MG extended release tablet Take 150 mg by mouth every morning 0 Active calcium chloride 0.0014 meq/ml / potassium chloride 0.004 meq/ml / sodium chloride 0.103 meq/ml / sodium lactate 0.028 meq/ml injectable solution (2 sources) Start: 11-06-2021 lactated ringers infusion cephalexin 500 mg oral capsule (1 source) Cephalosporin Antibacterial Start: 05-20-2023 End: 05-27-2023 cephalexin 500 mg oral capsule Dose : 500 mg = 1 cap(s), Oral, q8h, X 7 day(s), # 21 cap(s), 0 Refill(s), 05/27/23 11:33:00 AM EST, Pharmacy: [facility] #[id number], Right flank pain, 165, cm, 05/20/23 9:47:00 EST, Height, 99.5, kg, 05/20/23 9:47:00 EST, Dosing Weight Start Date: 05/20/23 Stop Date: 05/27/23 Status: Ordered cholecalciferol 0.05 mg oral capsule (2 sources) Vitamin D Start: 08-30-2023 End: 08-22-2024 cholecalciferol 50 mcg (2000 intl units) oral capsule Dose : 50 mcg = 1 cap(s), Oral, Daily, # 90 cap(s), 1 Refill(s), Pharmacy: [facility], 165, cm, 02/24/24 11:00:00 EDT, Height, kg, 02/24/24 11:00:00 EDT, Dosing Weight Start Date: 02/24/24 Stop Date: 08/22/24 Status: Ordered Quantity: 90.0 Unit: cap(s) Repeat number: 2 ciprofloxacin 750 mg oral tablet (2 sources) Quinolone Antimicrobial Start: 08-13-2021 End: 09-10-2021 ciprofloxacin 750 mg oral tablet Dose : 750 mg = 1 tab(s), Oral, q12h, X 14 day(s), # 28 tab(s), 1 Refill(s), 09/10/21 13:50:00 EDT, Pharmacy: [facility]/pharmacy #[id number], Chronic sinusitis Deviated septum, 167.6, cm, 08/13/21 12:53:00 EDT, Height, 104.5, kg, 08/13/21 12:53:00 EDT, Dosing W... Start Date: 08/13/21 Stop Date: 09/10/21 Status: Ordered coenzyme q10 100 mg oral capsule (2 sources) Coenzyme Q10 (CO Q10) 100 MG CAPS Take by mouth 0 Active cyclobenzaprine hydrochloride 10 mg oral tablet (3 sources) Muscle Relaxant Start: 04-20-2021 take 1 tablet by mouth three times daily Flexeril use cyclobenzaprine Dose : 10 mg =, Oral, TID, # 20 tab(s), 0 Refill(s), Pain radiating to right flank Start Date: 04/20/21 Status: Ordered desloratadine (20 sources) Histamine-1 Receptor Antagonist Start: 04-10-2021 Clarinex Active April 10, 2021 8:01am Start: 04-10-2021 Clarinex Activ e April 10, 2021 12:00am Start: 04-10-2021 Clarinex Activ e April 10, 2021 1:00am Start: 07-11-2019 desloratadine (CLARINEX) 5 mg tablet 07/11/2019 Active dextromethorphan hydrobromide 3 mg/ml / promethazine hydrochloride 1.25 mg/ml oral solution (1 source) Phenothiazine, Uncompetitive I-vcsmud-O-aspartate Receptor Antagonist, Sigma-1 Agonist Start: 06-12-2024 End: 06-26-2024 take 1 dose by mouth every six hours as needed for cough dextromethorphan-promethazine 15 mg-6.25 mg/5 mL oral syrup Dose = 5 mL, Oral, q6h, PRN for cough, X 7 day(s), # 250 mL, 1 Refill(s), Pharmacy: [facility]/pharmacy #[id number], 165, cm, 06/12/24 15:49:00 EST, Height, kg, 06/12/24 15:49:00 EST, Dosing Weight Start Date: 06/12/24 Stop Date: 06/26/24 Status: Ordered Quantity: 250.0 Unit: mL Repeat number: 2 1 ml diphenhydrAMINE hydrochloride 50 mg/ml cartridge (1 source) Histamine-1 Receptor Antagonist Start: 11-06-2021 End: 11-06-2021 diphenhydrAMINE (BENADRYL) injection 12.5 mg doxycycline hyclate 100 mg oral capsule (1 source) Tetracycline-class Drug Start: 04-24-2022 End: 05-01-2022 doxycycline hyclate 100 mg oral capsule Dose : 100 mg = 1 cap(s), Oral, BID, X 7 day(s), # 14 cap(s), 0 Refill(s), 05/01/22 14:41:00 EST, Pharmacy: [facility]/pharmacy #[id number], Acute sinusitis, 165, cm, 04/24/22 14:00:00 EST, Height, 104.6 Start Date: 04/24/22 Stop Date: 05/01/22 Status: Ordered Drospirenone-Ethi nyl Estradiol (11 sources) Progestin, Estrogen Start: 06-18-2023 Drospirenone-Ethinyl Estradi ol (Charlie (28)) 3-0.02 mg tablet Active 1 TABLET PO DAILY June 18, 2023 4:16pm Start: 10-11-2023 take 1 tablet by don th once daily drospirenone-ethinyl estradiol 3 mg-0.02 mg oral tablet Dose = 1 tab(s), Oral, Daily, # 28 tab(s), 0 Refill(s) Start Date: 03/10/23 Status: Ordered Quantity: 28.0 Unit: tab(s) Repeat number: 1 Start: 03-10-2023 take 1 tablet by don th once daily drospirenone-ethinyl estradiol 3 mg-0.02 mg oral tablet Dose = 1 tab(s), Oral, Daily, # 28 tab(s), 0 Refill(s) Start Date: 03/10/23 Status: Ordered Start: 03-04-2023 End: 06-18-2023 Drospirenone-Ethinyl Estradi ol (Charlie (28)) 3-0.02 mg tablet Discontinued 1 TABLET PO DAILY March 03, 2023 11:00pm June 18, 2023 4:19pm Start: 03-04-2023 Drospirenone-E thinyl Estradiol (Charlie (28)) 3-0.02 mg tablet Active 1 TABLET PO DAILY March 03, 2023 11:00pm Start: 12-19-2019 Drospirenone-E thinyl Estradiol 3-0.03 mg per tablet 12/19/2019 Active Start: 12-19-2019 Drospirenone-E thinyl Estradiol 3-0.03 mg per tablet Start: 11-01-2018 take 1 tablet by don once daily drospirenone-ethinyl estradiol 3-0.03 MG TABS Take 1 tablet by mouth daily 1 packet 3 11/01/2018 Active Elderberry preparation (3 sources) Start: 07-18-2021 elderberry See Instructions, 0 Refill(s) Start Date: 07/18/21 Status: Ordered erythromycin 0.005 mg/mg ophthalmic ointment (1 source) Macrolide, Macrolide Antimicrobial Start: 12-23-2023 End: 12-23-2023 erythromycin (ROMYCIN) 5 mg/gram (0.5 %) ophthalmic ointment Use 1 application in the left eye four times daily for 7 days. 3.5 g 0 12/23/2023 12/23/2023 Discontinued (Clinical Decision) {21 (Ethinyl Estradiol 0.03 MG / Norgestrel 0.3 MG Oral Tablet) / 7 (Inert Ingredients 1 MG Oral Tablet) } Pack [Cryselle 28] (5 sources) Estrogen Start: 04-20-2021 Cryselle 28 oral tablet 0 Refill(s) Start Date: 04/20/21 Status: Ordered Flonase 50 mcg/inh nasal spray (4 sources) Start: 11-22-2020 Flonase 50 mcg/inh nasal spray Dose = 1 spray(s), Nasal, qDay, 0 Refill(s) Start Date: 11/22/20 Status: Ordered Florajen Acidophilus oral capsule (3 sources) Start: 09-12-2021 End: 09-07-2022 take 1 capsule by mouth once daily Florajen Acidophilus oral capsule Dose = 1 cap(s), Oral, qDay, # 30 cap(s), 11 Refill(s), Pharmacy: [facility]/pharmacy #[id number], 167.6, cm, 08/13/21 12:53:00 EDT, Height, kg, 08/13/21 12:53:00 EDT, Dosing Weight Start Date: 09/12/21 Stop Date: 09/07/22 Status: Ordered Start: 07-18-2021 End: 08-17-2021 take 1 capsule by mouth once daily Florajen Acidophilus oral capsule Dose = 1 cap(s), Oral, qDay, # 30 cap(s), 0 Refill(s), Pharmacy: [facility]/pharmacy #[id number], 167, cm, 07/18/21 9:30:00 EST, Height, kg, 07/18/21 9:30:00 EST, Dosing Weight Start Date: 07/18/21 Stop Date: 08/17/21 Status: Ordered fluticasone propionate 0.05 mg/actuat metered dose nasal spray (20 sources) Corticosteroid Start: 04-24-2022 take 1 dose nasal route twice daily Flonase 50 mcg/inh nasal spray Dose = 2 spray(s), Nostril, each, BID, # 16 gram(s), 0 Refill(s), Pharmacy: [facility]/pharmacy #[id number], Acute sinusitis, 165, cm, 04/24/22 14:00:00 EST, Height Start Date: 04/24/22 Status: Ordered Quantity: 16.0 Unit: g Repeat number: 1 Indication: Acute sinusitis, unspecified Start: 11-22-2020 Flonase 50 mcg /inh nasal spray Dose = 1 spray(s), Nasal, qDay, 0 Refill(s) Start Date: 11/22/20 Status: Ordered Start: 08-21-2019 Fluticasone Pr opionate Active INTRANASAL April 10, 2021 12:00am Start: 11-28-2018 fluticasone (F LONASE) 50 MCG/ACT nasal spray 1 spray by Nasal route daily 0 11/28/2018 Active guaiFENesin 600 mg oral tablet (4 sources) Start: 03-22-2021 Mucinex 600 mg oral tablet, extended release Dose : 600 mg = 1 tab(s), Oral, q12h, 0 Refill(s) Start Date: 03/22/21 Status: Ordered 1 ml HYDROmorphone hydrochloride 1 mg/ml cartridge (2 sources) Opioid Agonist Start: 11-06-2021 HYDROmorphone (DILAUDID) injection 0.5 mg Start: 11-06-2021 HYDROmorphone (DILAUDID) injection 0.25 mg hydrOXYzine hydrochloride 25 mg oral tablet (18 sources) Antihistamine Start: 08-05-2020 hydrOXYzine hy drochloride 25 mg oral tablet Dose : 25 mg = 1 tab(s), Oral, QID, PRN as needed for anxiety, 0 Refill(s) Start Date: 11/22/20 Status: Ordered Start: 06-14-2019 End: 12-23-2023 take 1 tablet by mouth every eight hours for anxiety hydrOXYzine HCl (ATARAX) 25 mg tablet take 1 tablet by mouth every 8 hours if needed for anxiety 0 06/14/2019 12/23/2023 Discontinued (Other) ibuprofen 600 mg oral tablet (12 sources) Nonsteroidal Anti-inflammatory Drug Start: 11-28-2020 ibuprofen 600 mg oral tablet Dose : 600 mg = 1 tab(s), Oral, q6hr, # 30 tab(s), 1 Refill(s), [facility], 167.6, cm, 11/28/20 12:41:00 EDT, Height, kg, 11/28/20 12:41:00 EDT, Dosing Weight Start Date: 11/28/20 Status: Ordered Quantity: 30.0 Unit: tab(s) Repeat number: 2 labetalol (NORMODYNE;TRANDATE) injection 5 mg (1 source) Start: 11-06-2021 labetalol (NORMODYNE;TRANDATE) injection 5 mg levonorgestrel 0.100996 mg/hr intrauterine system (1 source) Progestin, Progestin-containing Intrauterine Device End: 12-23-2023 levonorgestrel (MIRENA) 20 mcg/24 hr (5 years) IUD 1 Each by INTRAUTERINE route one time only. 0 12/23/2023 Discontinued (Other) 10 ml lidocaine hydrochloride 10 mg/ml injection (1 source) Antiarrhythmic, Amide Local Anesthetic Start: 11-06-2021 End: 11-06-2021 lidocaine PF 1 % injection 1 mL lisdexamfetamine dimesylate 30 mg oral capsule (18 sources) Central Nervous System Stimulant Start: 05-26-2024 End: 06-25-2024 Vyvanse 30 mg oral capsule Dose : 30 mg = 1 cap(s), Oral, qAM, fill on or after 07/25/2024, # 30 cap(s), 0 Refill(s), Pharmacy: [facility]/pharmacy #[id number], Adult ADHD, 165, cm, 05/26/24 14:52:00 EST, Height, 103.6, kg, 05/26/24 14:52:00 EST, Dosing Weight Start Date: 05/26/24 Stop Date: 06/25/24 Status: Ordered Quantity: 30.0 Unit: cap(s) Repeat number: 1 Indication: Attention-deficit hyperactivity disorder, unspecified type Start: 11-22-2023 End: 12-22-2023 Vyvanse 30 mg oral capsule D ose : 30 mg = 1 cap(s), Oral, qAM, fill on or after 12/19/23, # 30 cap(s), 0 Refill(s), Pharmacy: [facility] #[id number], Adult ADHD, 165, cm, 11/22/23 13:02:00 EDT, Height, 100.2, kg, 11/22/23 13:02:00 EDT, Dosing Weight Start Date: 11/22/23 Stop Date: 12/22/23 Status: Ordered Start: 03-04-2023 End: 04-09-2023 take 1 capsule by mouth once daily Lisdexamfetamine (Vyvanse) 30 mg capsule Active 30 MG PO DAILY March 03, 2023 11:00pm Start: 11-15-2022 End: 01-15-2023 Vyvanse 30 mg oral capsule D ose : 30 mg = 1 cap(s), Oral, qAM, # 30 cap(s), 0 Refill(s), Pharmacy: [facility] #[id number], Adult ADHD, 12/14/22, 165, cm, 09/29/22 16:38:00 EDT, Height, 101.5, kg, 09/29/22 16:38:00 EDT, Dosing Weight Start Date: 12/16/22 Stop Date: 01/15/23 Status: Ordered Start: 10-15-2022 End: 11-14-2022 Vyvanse 30 mg oral capsule D ose : 30 mg = 1 cap(s), Oral, qAM, # 30 cap(s), 0 Refill(s), Pharmacy: [facility] #[id number], Adult ADHD, 10/13/22, 165, cm, 09/29/22 16:38:00 EDT, Height, 101.5, kg, 09/29/22 16:38:00 EDT, Dosing Weight Start Date: 10/15/22 Stop Date: 11/14/22 Status: Ordered meperidine hydrochloride 50 mg/ml injectable solution (1 source) Opioid Agonist Start: 11-06-2021 meperidine (DE MEROL) injection 12.5 mg montelukast 10 mg oral tablet (20 sources) Leukotriene Receptor Antagonist Start: 04-10-2021 Singulair Active April 10, 2021 8:01am Start: 04-10-2021 Singulair Acti ve April 10, 2021 12:00am Start: 04-10-2021 Singulair Acti ve April 10, 2021 1:00am Start: 07-09-2019 End: 12-23-2023 montelukast 10 mg oral table t Dose : 10 mg = 1 tab(s), Oral, qDay, # 90 tab(s), 0 Refill(s) Start Date: 06/14/23 Status: Ordered Quantity: 90.0 Unit: tab(s) Repeat number: 1 Multivitamin preparation (8 sources) Start: 06-25-2021 take 1 tablet by mouth once daily Multivitamin Dose = 1 tab(s), Oral, Daily, 0 Refill(s) Start Date: 06/25/21 Status: Ordered Repeat number: 1 Start: 06-25-2021 take 1 tablet by don th once daily Multivitamin Dose = 1 tab(s), Oral, Daily, 0 Refill(s) Start Date: 06/25/21 Status: Ordered nitrofurantoin, macrocrystals 25 mg / nitrofurantoin, monohydrate 75 mg oral capsule (1 source) Nitrofuran Antibacterial Start: 06-18-2023 take 1 capsule by mouth twice daily at mealtime Nitrofurantoin Monohyd/M-Cryst (Macrobid) 100 mg capsule Active 100 MG PO TWICE A DAY 14 June 18, 2023 12:00am must administer with a meal/food ofloxacin 3 mg/ml ophthalmic solution (5 sources) Quinolone Antimicrobial Start: 01-15-2025 End: 01-22-2025 take 2 drop(s) into the eye(s) four times daily ofloxacin (OCUFLOX) 0.3 % ophthalmic solution Indications: Acute conjunctivitis of both eyes, unspecified acute conjunctivitis type Use 2 drops in both eyes four times daily for 7 days. 10 mL 01/15/2025 01/22/2025 Active Start: 12-26-2023 End: 01-15-2025 take 1 drop(s) into the eye(s) four times daily ofloxacin (OCUFLOX) 0.3 % ophthalmic solution Indications: Other conjunctivitis of both eyes Use 1 Drop in both eyes four times daily. 5 mL 12/26/2023 01/15/2025 Discontinued Start: 12-23-2023 End: 12-30-2023 take 2 drop(s) into the eye(s) every four hours ofloxacin (OCUFLOX) 0.3 % ophthalmic solution Indications: Acute conjunctivitis of left eye, unspecified acute conjunctivitis type Use 2 Drops in the left eye every 4 hours for 7 days. 5 mL 0 12/23/2023 12/30/2023 Active omeprazole 20 mg delayed release oral capsule (9 sources) Proton Pump Inhibitor Start: 04-10-2021 take 20 mg by mouth once daily Omeprazole Active 20 MG PO DAILY April 10, 2021 12:00am ondansetron 4 mg disintegrating oral tablet (15 sources) Serotonin-3 Receptor Antagonist Start: 07-17-2022 ondansetron 4 mg oral tablet, disintegrating 0 Refill(s) Start Date: 07/17/22 Status: Ordered Repeat number: 1 Start: 11-06-2021 End: 11-06-2021 ondansetron (ZOFRAN) injecti on 4 mg Start: 04-10-2021 End: 03-04-2023 take 4 mg by mouth every eight hours as needed Ondansetron Discontinued 4 MG PO EVERY 8 HOURS NEEDED April 10, 2021 12:00am March 04, 2023 2:09pm Start: 01-29-2021 Zofran 4 mg or al tablet Dose : 4 mg = 1 tab(s), Oral, q6h, PRN Nausea/Vomiting, # 20 tab(s), 0 Refill(s) Start Date: 01/29/21 Status: Ordered oxyCODONE (1 source) Opioid Agonist Start: 11-06-2021 End: 11-06-2021 oxyCODONE (ROXICODONE) immediate release tablet 5 mg pantoprazole 40 mg delayed release oral tablet (8 sources) Proton Pump Inhibitor Start: 12-16-2021 pantoprazole 40 mg oral enteric coated tablet Dose : 40 mg = 1 tab(s), Oral, qDay, # 30 tab(s), 0 Refill(s) Start Date: 12/16/21 Status: Ordered Quantity: 30.0 Unit: tab(s) Repeat number: 1 Start: 04-16-2021 End: 05-16-2021 Protonix 20 mg oral enteric coated tablet Dose : 20 mg = 1 tab(s), Oral, qDay, # 30 tab(s), 0 Refill(s), Right upper quadrant pain Start Date: 04/16/21 Stop Date: 05/16/21 Status: Ordered predniSONE 50 mg oral tablet (7 sources) Start: 06-12-2024 End: 06-17-2024 predniSONE 50 mg oral tablet Dose : 50 mg = 1 tab(s), Oral, qDayM, X 5 day(s), # 5 tab(s), 0 Refill(s), 06/17/24 4:31:00 PM EST, Pharmacy: [facility]/pharmacy #[id number], 165, cm, 06/12/24 15:49:00 EST, Height, kg, 06/12/24 15:49:00 EST, Dosing Weight Start Date: 06/12/24 Stop Date: 06/17/24 Status: Ordered Quantity: 5.0 Unit: tab(s) Repeat number: 1 Start: 08-08-2020 predniSONE (DE LTASONE) 20 MG tablet 3 tablets once a day x 5 days, then 2 x 3 days and 1 x 2 days 23 tablet 0 08/08/2020 Active Vit-Fe Fumarate-FA ( VITAMIN PO) (1 source) take 1 tablet by mouth once daily Vit-Fe Fumarate-FA ( VITAMIN PO) Take 1 tablet by mouth daily 0 Active rosuvastatin calcium 10 mg oral tablet (20 sources) HMG-CoA Reductase Inhibitor Start: End: rosuvastatin 10 mg oral tablet Dose : 10 mg = 1 tab(s), Oral, qDay, # 90 tab(s), 1 Refill(s), Pharmacy: [facility], 165, cm, 02/24/24 11:00:00 EDT, Height, kg, 02/24/24 11:00:00 EDT, Dosing Weight Start Date: 02/24/24 Stop Date: 08/22/24 Status: Ordered Quantity: 90.0 Unit: tab(s) Repeat number: 2 Start: 04-10-2021 Crestor Active April 10, 2021 8:01am Start: 04-10-2021 Crestor Active April 10, 2021 12:00am Start: 04-10-2021 Crestor Active April 10, 2021 1:00am Start: 11-22-2020 rosuvastatin 1 0 mg oral capsule Dose : 10 mg = 1 cap(s), Oral, qDay, 0 Refill(s) Start Date: 11/22/20 Status: Ordered Start: 11-21-2019 End: 09-06-2023 rosuvastatin 10 mg oral tabl et Dose : 10 mg = 1 tab(s), Oral, qDay, # 90 tab(s), 1 Refill(s), Pharmacy: [facility], 165, cm, 03/10/23 13:04:00 EDT, Height, kg, 03/10/23 13:04:00 EDT, Dosing Weight Start Date: 03/10/23 Stop Date: 09/06/23 Status: Ordered Start: 07-07-2019 take 1 tablet by don th once daily rosuvastatin (CRESTOR) 10 MG tablet take 1 tablet by mouth nightly 30 tablet 0 07/07/2019 Active Start: 03-02-2019 take 1 tablet by don th once daily rosuvastatin (CRESTOR) 10 MG tablet Take 1 tablet by mouth nightly 30 tablet 2 03/02/2019 Active sertraline 100 mg oral tablet (20 sources) Serotonin Reuptake Inhibitor Start: 05-07-2021 sertraline (ZOLOFT) 100 MG tablet TAKE 1 AND 1/2 TABLETS DAILY 135 tablet 1 05/07/2021 Active Start: 04-10-2021 Zoloft Active April 10, 2021 8:01am Start: 04-10-2021 End: 03-04-2023 Zoloft Discontinued April 10, 2021 12:00am March 04, 2023 2:09pm Start: 04-10-2021 Zoloft Active April 10, 2021 1:00am Start: 11-22-2020 take 1 dose by mouth once belkys y Zoloft Dose : 150 mg =, Oral, qDay, 0 Refill(s) Start Date: 11/22/20 Status: Ordered Start: 09-30-2020 sertraline (ZO LOFT) 100 MG tablet TAKE 1 AND 1/2 TABLETS DAILY 135 tablet 1 09/30/2020 Active Start: 05-13-2020 sertraline (ZO LOFT) 100 MG tablet TAKE 1 AND 1/2 TABLETS DAILY 135 tablet 1 05/13/2020 Active Start: 07-07-2019 sertraline (ZO LOFT) 100 MG tablet take 1 and 1/2 tablets by mouth daily 135 tablet 0 07/07/2019 Active Start: 03-07-2019 sertraline (ZO LOFT) 100 MG tablet take 1 and 1/2 tablets by mouth daily 135 tablet 0 03/07/2019 Active Start: 12-09-2018 End: 12-23-2023 take 1 tablet by mouth once daily sertraline (ZOLOFT) 100 MG tablet Indications: Recurrent major depressive disorder, in partial remission (HCC) , Anxiety Take 1 tablet by mouth daily 30 tablet 0 12/09/2018 Active sertraline (ZOLO FT) 100 MG tablet Take 150 mg by mouth daily 0 Active 5 ml sodium chloride 9 mg/ml injection (9 sources) Start: 11-06-2021 0.9 % sodium c hloride bolus Start: 11-06-2021 0.9 % sodium c hloride infusion Start: 11-06-2021 sodium chlorid e flush 0.9 % injection 5-40 mL spironolactone 50 mg oral tablet (6 sources) Aldosterone Antagonist Start: 03-04-2023 take 50 mg by mouth once daily Spironolactone Active 50 MG PO DAILY March 03, 2023 11:00pm Start: 12-30-2022 spironolactone 100 mg oral tablet Dose : 100 mg = 1 tab(s), qDay, 0 Refill(s) Start Date: 12/30/22 Status: Ordered Repeat number: 1 Vitamin D3 (5 sources) Start: 04-10-2021 Vitamin D3 Act deondre April 10, 2021 8:01am Start: 04-10-2021 End: 03-04-2023 Vitamin D3 Discontinued [facility] 2020 12:00am March 04, 2023 2:09pm Start: 04-10-2021 Vitamin D3 Act deondre April 10, 2021 1:00am Completed/Discontinued Medications Medication Drug Class(es) Dates Sig (Normalized) Sig (Original) acetaminophen 500 mg oral tablet (1 source) Start: 11-06-2021 End: 11-06-2021 acetaminophen (TYLENOL) tablet 1,000 mg acetaminophen 325 mg / HYDROcodone bitartrate 5 mg oral tablet (3 sources) Opioid Agonist Start: 04-22-2021 End: 04-25-2021 take 1 tablet by mouth every four hours as needed for pain [place] 325- 5 mg oral tablet Dose = 1 tab(s), Oral, q4hr, PRN as needed for pain, # 10 tab(s), 0 Refill(s), Pain radiating to right flank Acute post-operative pain Start Date: 04/22/21 Stop Date: 04/25/21 Status: Ordered Start: 04-20-2021 End: 04-23-2021 take 1 tablet by mouth every six hours as needed for pain [place] 325- 5 mg oral tablet Dose = 1 tab(s), Oral, q6h, PRN as needed for pain, # 12 tab(s), 0 Refill(s), Pain radiating to right flank, 101.1 Start Date: 04/20/21 Stop Date: 04/23/21 Status: Ordered aprepitant 40 mg oral capsule (1 source) Substance P/Neurokinin-1 Receptor Antagonist Start: 11-06-2021 End: 11-06-2021 aprepitant (EMEND) capsule 40 mg Start: 11-06-2021 End: 11-06-2021 aprepitant (EMEND) capsule 4 0 mg clindamycin 0.01 mg/mg topical gel (1 source) Lincosamide Antibacterial Start: 10-29-2021 End: 11-18-2021 clindamycin 1% topical gel Apply 1 nesha, Topical, BID, apply a thin film to affected area after washing, continue treatment 3 days after inflammation resolves, # 30 gram(s), 1 Refill(s), Pharmacy: [facility]/pharmacy #[id number], 165.5, cm, 10/28/21 16:41:00 EDT, Height, 106.3 Start Date: 10/29/21 Stop Date: 11/18/21 Status: Ordered D3-50 50,000 UNIT CAPSULE (6 sources) Start: 11-28-2020 D3-50 50,000 U NIT CAPSULE D3-50 50,000 UNIT CAPSULE, 50,000 unit(s), Oral, qWeek, 0 Refill(s), 97.7 Start Date: 11/28/20 Status: Ordered famotidine 20 mg oral tablet (1 source) Histamine-2 Receptor Antagonist Start: 11-06-2021 End: 11-06-2021 famotidine (PEPCID) tablet 20 mg minocycline 50 mg oral tablet (3 sources) Tetracycline-class Drug Start: 12-30-2022 minocycline 50 mg oral tablet Dose : 50 mg = 1 tab(s), Oral, qDay, 0 Refill(s), 101.5 Start Date: 12/30/22 Status: Ordered Repeat number: 1 oxymetazoline hydrochloride 0.5 mg/ml nasal spray (1 source) Start: 11-06-2021 End: 11-06-2021 oxymetazoline (AFRIN) 0.05 % nasal spray 2 spray Problems Active Problems Problem Classification Problem Date Documented Da te Episodic/Chronic Abdominal pain (5 sources) Right upper quadrant pain; Translations: [Right upper quadrant pain] 04-18-2021 Episodic Anxiety disorders (14 sources) Anxiety; Translations: [Anxiety disorder, unspecified] Onset: 08-04-2018 08-04-2018 Chronic Asthma (20 sources) Mild intermittent asthma; Translations: [Mild intermittent asthma, uncomplicated] Onset: 06-17-2015 06-17-2015 Chronic Attention-deficit, conduct, and disruptive behavior disorders (5 sources) Adult attention deficit hyperactivity disorder 03-13-2022 Chronic Attention-deficit, conduct, and disruptive behavior disorders (3 sources) Attention deficit hyperactivity disorder; Translations: [Attention-deficit hyperactivity disorder, unspecified type] 03-04-2023 Chronic Deficiency and other anemia (3 sources) Anemia 03-10-2023 Episodic Diabetes mellitus without complication (6 sources) Prediabetes 10-29-2021 Episodic Disorders of lipid metabolism (19 sources) Hyperlipidemia; Translations: [Hyperlipidemia, unspecified] Onset: 12-09-2018 12-09-2018 Chronic Endometriosis (8 sources) Endometriosis (clinical); Translations: [Endometriosis, unspecified] Onset: 04-26-2024 03-04-2023 Chronic Inflammation; infection of eye (except that caused by tuberculosis or sexually transmitteddisease) (4 sources) Acute conjunctivitis of left eye; Translations: [Unspecified acute conjunctivitis, left eye] Onset: 01-15-2025 12-23-2023 Episodic Inflammatory diseases of female pelvic organs (8 sources) Endometritis 07-18-2021 Episodic Miscellaneous mental health disorders (2 sources) Binge eating disorder 08-30-2023 Chronic Mood disorders (20 sources) Recurrent major depression in partial remission; Translations: [Major depression, single episode] Onset: 11-18-2016 Resolved: 12-09-2018 12-09-2018 Chronic Nonspecific chest pain (2 sources) Chest wall pain; Translations: [Other chest pain] Onset: 04-26-2022 Episodic Nutritional deficiencies (2 sources) Vitamin D deficiency 08-30-2023 Chronic Other aftercare (2 sources) Other on air talent (current) drug therapy; Translations: [Other on air talent (current) drug therapy] Onset: 11-22-2023 Episodic Other connective tissue disease (8 sources) Pelvic floor dysfunction 07-18-2021 Episodic Other ear and sense organ disorders (2 sources) Ventilation tube in tympanic membrane 08-30-2023 Chronic Other endocrine disorders (8 sources) Hypoglycemia 07-18-2021 Chronic Other endocrine disorders (3 sources) Hypoglycemic disorder; Translations: [Hypoglycemia, unspecified] 03-04-2023 Chronic Other female genital disorders (8 sources) Pain in female genitalia on intercourse; Translations: [Unspecified dyspareunia] Onset: 01-08-2020 01-08-2020 Chronic Other gastrointestinal disorders (3 sources) Irritable bowel syndrome 03-10-2023 Chronic Other lower respiratory disease (2 sources) Rib pain; Translations: [Pleurodynia] Episodic Other lower respiratory disease (2 sources) Multiple nodules of lung; Translations: [Other nonspecific abnormal finding of lung field] Episodic Other nervous system disorders (1 source) Postoperative pain ; Translations: [Other acute postprocedural pain] Onset: 04-22-2021 Episodic Other nutritional; endocrine; and metabolic disorders (5 sources) Body mass index 30+ - obesity 10-29-2021 Chronic Other nutritional; endocrine; and metabolic disorders (3 sources) Morbid obesity 03-10-2023 Chronic Other screening for suspected conditions (not mental disorders or infectious disease) (2 sources) Encounter for screening mammogram for malignant neoplasm of breast; Translations: [Encounter for screening for malignant neoplasm of cervix] Onset: 05-26-2024 Episodic Other skin disorders (3 sources) Acne 03-10-2023 Episodic Other upper respiratory disease (11 sources) Allergic rhinitis; Translations: [Allergic rhinitis, unspecified] Onset: 01-21-2016 01-21-2016 Chronic Other upper respiratory disease (3 sources) Seasonal allergy 03-10-2023 Chronic Other upper respiratory infections (12 sources) Acute pharyngitis; Translations: [Acute pharyngitis due to other specified organisms] Onset: 08-08-2020 08-08-2020 Episodic Ovarian cyst (3 sources) Cyst of ovary; Translations: [Unspecified ovarian cyst, left side] 04-30-2023 Episodic Residual codes; unclassified (10 sources) Obstructive sleep apnea syndrome; Translations: [Obstructive sleep apnea (adult) (pediatric)] Onset: 01-08-2020 01-08-2020 Chronic Residual codes; unclassified (1 source) Pain; Translations: [Pain, unspecified] Onset: 04-20-2021 Episodic Residual codes; unclassified (3 sources) Family history of breast cancer 03-10-2023 Episodic Screening and history of mental health and substance abuse codes (3 sources) Tobacco use and exposure - finding 03-10-2023 Chronic Spondylosis; intervertebral disc disorders; other back problems (1 source) Dorsalgia, unspecified; Translations: [Dorsalgia, unspecified] Onset: 04-26-2024 Episodic Suicide and intentional self-inflicted injury (3 sources) H/O: attempted suicide 03-10-2023 Episodic Unclassified (2 sources) Continuous positive airway pressure ventilation treatment not tolerated (situation) 06-14-2023 Unclassified (2 sources) Medication refused 06-14-2023 Unclassified (2 sources) Patient encounter status 06-14-2023 Urinary tract infections (2 sources) Urinary tract infectious disease; Translations: [Urinary tract infection, site not specified] 06-18-2023 Episodic Past or Other Problems Problem Classification Problem Date Documented Date Episodic/Chronic Chronic obstructive pulmonary disease and bronchiectasis (8 sources) Bronchitis; Translations: [Bronchitis, not specified as acute or chronic] Onset: 08-08-2020 08-08-2020 Episodic Genitourinary symptoms and ill-defined conditions (2 sources) Unspecified symptoms and signs involving the genitourinary system; Translations: [Unspecified symptoms and signs involving the genitourinary system] Onset: 05-20-2023 Episodic Pneumonia (except that caused by tuberculosis or sexually transmitted disease) (1 source) Infective pneumonia; Translations: [Pneumonia due to organism] Episodic Results Test Name Value Interpretation Reference Range Facility [facility] 01-15-2025 CNOV Office Visit ([facility]) ROBERTO NAVA ([id number]) 1980 F Date Time Provider Department 01/15/25 11:30 AM ADRIAN JESUS During your visit today, we recorded the following information about you: Temperature Pulse Respiration Blood pressure 98.2 degrees 102/minute 16/minute 122/68 Weight 106.8 kg Adrian Jesus MD 01/15/2025 12:11 PM Signed [facility] Subjective Roberto Nava is a 44 year old female. Patient presents with: Eye Problem: drainage, redness, left eye, congestion x 5 days Patient presents with illness starting 5 days ago. She has had chills, body aches, malaise, nasal congestion, nausea, diarrhea, cough. She has had eye irritation worsening since yesterday (L>R). She felt lightheaded while driving the initial day of symptoms last week. She wears contact lenses. Denies eye pain, vision change, vomiting. She has used Benadryl and Advil for symptoms. Her son is feeling sick today also. Review of Systems Objective BP 122/68 Pulse 102 Temp 36.8 ?C (98.2 ?F) Resp 16 Wt 106.8 kg (235 lb 7.2 oz) LMP 01/25/2020 (Exact Date) SpO2 96% Physical Exam Constitutional: General: She is not in acute distress. HENT: Right Ear: Tympanic membrane and ear canal normal. Left Ear: Tympanic membrane and ear canal normal. Nose: Congestion present. Right Sinus: No maxillary sinus tenderness or frontal sinus tenderness. Left Sinus: No maxillary sinus tenderness or frontal sinus tenderness. Mouth/Throat: Mouth: Mucous membranes are moist. Pharynx: Posterior oropharyngeal erythema present. No oropharyngeal exudate. Eyes: General: Right eye: No discharge. Left eye: No discharge. Extraocular Movements: Extraocular movements intact. Pupils: Pupils are equal, round, and reactive to light. Comments: Trace bilateral scleral injection Cardiovascular: Rate and Rhythm: Normal rate and regular rhythm. Heart sounds: No murmur heard. Pulmonary: Effort: No respiratory distress. Breath sounds: No wheezing, rhonchi or rales. Musculoskeletal: Cervical back: Neck supple. Lymphadenopathy: Cervical: No cervical adenopathy. Neurological: Mental Status: She is alert. {ASSESSMENT/PLAN: 1. Acute conjunctivitis of both eyes, unspecified acute conjunctivitis type - ICD9: 372.00, ICD10: H10.33 (primary diagnosis) [place] eye discussed. Infectious conjunctivitis is most commonly caused by cold viruses and is a self-limited condition which usually resolves in about a week. Bacterial conjunctivitis usually follows a similar course, but symptoms and contagiousness are responsive to antibiotics. Bacterial infection can rarely progress to more serious infection. Hand hygiene with washing or green chainer is important to reduce spread of the infection. Seek re-evaluation for high fever, increasing periocular redness/swelling, eye pain, or vision change as these can be symptoms of serious infection. - OFLOXACIN 0.3 % EYE DROPS to cover for potential contact lens associated bacterial conjunctivitis 2. Viral URI - ICD9: 465.9, ICD10: J06.9 - suspect viral URI - Supportive care treatment with rest, cold medicine, and analgesia. Adrian Jesus MD History and Record Review Systemic symptoms present included: Malaise, body Differential Diagnoses - Viral URI with conjunctivitis is more likely for the following reason(s): suggested by HANDP - Pseudomonas conjunctivitis is more likely for the following reason(s): Contact lens use Procedures Allergies As of Date: 01/15/2025 Noted Allergy Reaction BACTRIM (SULFAMETHOXAZOLE-TRIM ETH*01/28/2020 7 - Swelling Comments: Tongue swelling Date Reviewed: 01/15/2025 Reviewed by: Loida Brandon MA - Fully Assessed Reason for Visit: Eye Problem [43] Cmt: drainage, redness, left eye, congestion x 5 days Primary Visit Diagnosis:Acute conjunctivitis of both eyes, unspecified acute conjunctivitis type [H10.33] Other Visit Diagnosis:Viral URI [J06.9] Order(s):ofloxacin (OCUFLOX) 0.3 % ophthalmic solutionUse 2 drops in both eyes four times daily for 7 days.Disp: 10 mLRfl: 0 Prescriptions as of 01/15/2025 - ofloxacin (OCUFLOX) 0.3 % ophthalmic solution Use 2 drops in both eyes four times daily for 7 days. - WELLBUTRIN XL 300 mg 24 hr tablet 300 mg. - lisdexamfetamine (VYVANSE) 30 mg capsule Take 30 mg by mouth every morning. - rosuvastatin (CRESTOR) 10 mg tablet - Drospirenone-Ethinyl Estradiol 3-0.03 mg per tablet - desloratadine (CLARINEX) 5 mg tablet - azelastine (ASTELIN,ASTEPRO) 0.1% nasal spray Problem List As Of Date: 01/15/2025 (None) Prescriptions ordered this encounter Disp Refills Start End OFLOXACIN 0.3 % EYE DROPS 10 mL 0 01/15/2025 01/22/2025 Route: OU Sig: Use 2 drops in both eyes four times daily for 7 days. Medications Discontinued During This Encounter Prescriptions - ofloxacin (OCUFLOX) 0. (more content not included)... Normal [facility] .Auto Diffon 10-21-2024 Basophil, Absolute 0.0 10 3/mcL Normal 0.0-0.3 [facility] Comment on above: Performed By: #### E 2, FSH, PROG, LH #### [place] [address] #### TSH, CBC, ADIFF, VIDH, GFR, ANEU, A1C, CMP, LIPID, FT4 #### [address] [address] Basophils/100 WBC (Bld) 0.6 % Normal 0.0-2.5 [facility] Comment on above: Performed By: #### E 2, FSH, PROG, LH #### [place] [address] #### TSH, CBC, ADIFF, VIDH, GFR, ANEU, A1C, CMP, LIPID, FT4 #### [address] [address] Eosinophil, Absolute 0.2 10 3/mcL Normal 0.0-0.7 [facility] Comment on above: Performed By: #### E 2, FSH, PROG, LH #### [place] [address] #### TSH, CBC, ADIFF, VIDH, GFR, ANEU, A1C, CMP, LIPID, FT4 #### [address] [address] Eosinophils/100 WBC (Bld) 3.1 % Normal 0.0-6.0 [facility] Comment on above: Performed By: #### E 2, FSH, PROG, LH #### [place] [address] #### TSH, CBC, ADIFF, VIDH, GFR, ANEU, A1C, CMP, LIPID, FT4 #### [address] [address] Lymphocyte, Absolute 2.4 10 3/mcL Normal 0.9-4.3 [facility] Comment on above: Performed By: #### E 2, FSH, PROG, LH #### [place] [address] #### TSH, CBC, ADIFF, VIDH, GFR, ANEU, A1C, CMP, LIPID, FT4 #### [address] [address] Lymphocytes/100 WBC (Bld) 33.7 % Normal 20.0-40.0 [facility] Comment on above: Performed By: #### E 2, FSH, PROG, LH #### [place] [address] #### TSH, CBC, ADIFF, VIDH, GFR, ANEU, A1C, CMP, LIPID, FT4 #### [address] [address] Monocyte, Absolute 0.8 10 3/mcL Normal 0.1-1.4 [facility] Comment on above: Performed By: #### E 2, FSH, PROG, LH #### [place] [address] #### TSH, CBC, ADIFF, VIDH, GFR, ANEU, A1C, CMP, LIPID, FT4 #### [address] [address] Monocytes/100 WBC (Bld) 11.2 % Normal 2.0-13.0 [facility] Comment on above: Performed By: #### E 2, FSH, PROG, LH #### [place] [address] #### TSH, CBC, ADIFF, VIDH, GFR, ANEU, A1C, CMP, LIPID, FT4 #### [address] [address] Neutrophils/100 WBC (Bld) 51.4 % Normal 50.0-75.0 [facility] Comment on above: Performed By: #### E 2, FSH, PROG, LH #### [place] [address] #### TSH, CBC, ADIFF, VIDH, GFR, ANEU, A1C, CMP, LIPID, FT4 #### [address] [address] .GFRon 10-21-2024 Estimated Glomerular Filtration Rate 98 ml/min/1.73sqm Normal [facility] Comment on above: Result Comment: Stages of Chronic Kidney Disease (CKD) Stage Description eGFR(ml/min/1.73 sq.m.) CKD 1 Normal kidney function or >=90 normal kindney function with possible kidney damage (ex. Proteinuria) CKD 2 Kidney damage with mild loss 60-89 of kidney function CKD 3a Mild to moderate loss of kidney 45-59 function CKD 3b Moderate to severe loss of 30-44 of kindey function CKD 4 Severe loss of kidney function 15-29 CKD 5 Kidney failure <15 Note: (go live 2024) the eGFR calculation was updated to the 2020 CKD-EPI creatinine equation without a race factor to calculate the eGFR results. Performed By: #### E 2, FSH, PROG, LH #### [place] [address] #### TSH, CBC, ADIFF, VIDH, GFR, ANEU, A1C, CMP, LIPID, FT4 #### [address] [address] .NEUABSon 10-21-2024 Neutrophil, Absolute 3.6 10 3/mcL Normal 2.3-8.1 [facility] Comment on above: Performed By: #### E 2, FSH, PROG, LH #### [place] [address] #### TSH, CBC, ADIFF, VIDH, GFR, ANEU, A1C, CMP, LIPID, FT4 #### [address] [address] A1C 10-21-2024 Glucose [Mass/Vol] 120 mg/dL Normal [facility] Comment on above: Order Comment: [facility] SURVEILLANCE OBSERVER Result Comment: Tiara mated Average Glucose calculated by equation ((28.7xA1C)-46.7) Estimated average glucose (eAG) is a calculated value from Hemoglobin A1C and is territory sales representative of the average blood glucose level in the last 2-3 month period. Normal range: less than 114 mg/dL Performed By: #### E 2, FSH, PROG, LH #### [place] [address] #### TSH, CBC, ADIFF, VIDH, GFR, ANEU, A1C, CMP, LIPID, FT4 #### [place] [id number] HbA1c (Bld) [Mass fraction] 5.8 % Normal 4.3-6.4 [facility] Comment on above: Order Comment: OB/GY -[facility] SURVEILLANCE OBSERVER Performed By: #### E 2, FSH, PROG, LH #### [place] [address] #### TSH, CBC, ADIFF, VIDH, GFR, ANEU, A1C, CMP, LIPID, FT4 #### [address] [address] CBC 10-21-2024 Erythrocyte distribution width (RBC) [Ratio] 12.9 % Normal 11.5-15.5 [facility] Comment on above: Order Comment: [facility] SUR[facility]ILL[facility] OBSERVER Performed By: #### E 2, FSH, PROG, LH #### [place] [address] #### TSH, CBC, ADIFF, VIDH, GFR, ANEU, A1C, CMP, LIPID, FT4 #### Maddi [place] [address] [place], [place] [address] Hematocrit (Bld) [Volume fraction] 38.9 % Normal 34.0-46.0 [facility] Comment on above: Order Comment: [facility] SURVEILLANCE OBSERVER Performed By: #### E 2, FSH, PROG, LH #### [address] [address] #### TSH, CBC, ADIFF, VIDH, GFR, ANEU, A1C, CMP, LIPID, [id number] #### [address] [id number] Hgb 13.1 G/dL Normal 12.0-16.0 [facility] Comment on above: Order Comment: [facility] SURVEILLANCE OBSERVER Performed By: #### E 2, FSH, PROG, LH #### [address] [address] #### TSH, CBC, ADIFF, VIDH, GFR, ANEU, A1C, CMP, LIPID, [id number] #### [address] [address] MCH (RBC) [Entitic mass] 30.0 pg Normal 27.0-33.0 [facility] Comment on above: Order Comment: [facility] SURVEILLANCE OBSERVER Performed By: #### E 2, FSH, PROG, LH #### [address] [address] #### TSH, CBC, ADIFF, VIDH, GFR, ANEU, A1C, CMP, LIPID, [id number] #### [address] [address] MCHC 33.7 G/dL Normal 32.0-36.0 [facility] Comment on above: Order Comment: [facility] Higu[facility] SURVEILLANCE OBSERVER Performed By: #### E 2, FSH, PROG, LH #### [address] [address] #### TSH, CBC, ADIFF, VIDH, GFR, ANEU, A1C, CMP, LIPID, [id number] #### [address] [address] MCV (RBC) [Entitic vol] 89.1 fL Normal 80.0-99.0 [facility] Comment on above: Order Comment: [facility] SURVEILLANCE OBSERVER Performed By: #### E 2, FSH, PROG, LH #### [address] [address] #### TSH, CBC, ADIFF, VIDH, GFR, ANEU, A1C, CMP, LIPID, [id number] #### [address] [address] Platelet 337 10 3/mcL Normal 150-450 [facility] Comment on above: Order Comment: [facility] SURVEILLANCE OBSERVER Performed By: #### E 2, FSH, PROG, LH #### [address] [address] #### TSH, CBC, ADIFF, VIDH, GFR, ANEU, A1C, CMP, LIPID, [id number] #### [address] [address] Platelet mean volume (Bld) [Entitic vol] 7.0 fL Normal 6.6-10.5 [facility] Comment on above: Order Comment: [facility] SURVEILLANCE OBSERVER Performed By: #### E 2, FSH, PROG, LH #### [place] [address] #### TSH, CBC, ADIFF, VIDH, GFR, ANEU, A1C, CMP, LIPID, [id number] #### [address] [address] RBC 4.36 10 6/mcL Normal 4.10-5.30 [facility] Comment on above: Order Comment: [facility] SURVEILLANCE OBSERVER Performed By: #### E 2, FSH, PROG, LH #### [address] [address] #### TSH, CBC, ADIFF, VIDH, GFR, ANEU, A1C, CMP, LIPID, [id number] #### [address] [address] WBC 7.0 10 3/mcL Normal 4.5-10.8 [facility] Comment on above: Order Comment: [facility]Fla[facility] SURVEILLANCE OBSERVER Performed By: #### E 2, FSH, PROG, LH #### [address] [address] #### TSH, CBC, ADIFF, VIDH, GFR, ANEU, A1C, CMP, LIPID, [id number] #### [address] [address] CMPon 10-21-2024 Albumin Level 2.8 G/dL Low 3.5-5.0 [facility] Comment on above: Order Comment: [facility]Fla[facility] SURVEILLANCE OBSERVER Performed By: #### E 2, FSH, PROG, LH #### [place] [address] #### TSH, CBC, ADIFF, VIDH, GFR, ANEU, A1C, CMP, LIPID, [id number] #### [address] [address] Albumin/Globulin [Mass ratio] 0.7 {ratio} Low 1.1-2.5 [facility] Comment on above: Order Comment: [facility] SURVEILLANCE OBSERVER Performed By: #### E 2, FSH, PROG, LH #### [place] [address] #### TSH, CBC, ADIFF, VIDH, GFR, ANEU, A1C, CMP, LIPID, [id number] #### [address] [address] ALP [Catalytic activity/Vol] 55 U/L Normal 40-135 [facility] Comment on above: Order Comment: [facility] SURVEILLANCE OBSERVER Performed By: #### E 2, FSH, PROG, LH #### [place] [address] #### TSH, CBC, ADIFF, VIDH, GFR, ANEU, A1C, CMP, LIPID, [id number] #### [place] [address] [place], [place] [address] ALT [Catalytic activity/Vol] 21 U/L Normal 14-59 [facility] Comment on above: Order Comment: OB/GY -[facility] SURVEILLANCE OBSERVER Performed By: #### E 2, FSH, PROG, LH #### [address] [address] #### TSH, CBC, ADIFF, VIDH, GFR, ANEU, A1C, CMP, LIPID, [id number] #### [address] [address] AST [Catalytic activity/Vol] 12 U/L Normal 10-40 [facility] Comment on above: Order Comment: OB/GY -[facility] SURVEILLANCE OBSERVER Performed By: #### E 2, FSH, PROG, LH #### [address] [address] #### TSH, CBC, ADIFF, VIDH, GFR, ANEU, A1C, CMP, LIPID, [id number] #### [address] [address] Bili Total 0.2 mg/dL Normal 0.2-1.0 [facility] Comment on above: Order Comment: OB/GY -[facility] SURVEILLANCE OBSERVER Result Comment: Use of this assay is not recommended for patients undergoing treatment with eltrombopag due to the potential for falsely elevated results. Performed By: #### E 2, FSH, PROG, LH #### [address] [address] #### TSH, CBC, ADIFF, VIDH, GFR, ANEU, A1C, CMP, LIPID, [id number] #### [address] [address] BUN/Creatinine Ratio 16 ratio Normal 7-27 [facility] Comment on above: Order Comment: OB/GY -[facility] SURVEILLANCE OBSERVER Performed By: #### E 2, FSH, PROG, LH #### [address] [address] #### TSH, CBC, ADIFF, VIDH, GFR, ANEU, A1C, CMP, LIPID, [id number] #### [address] [address] Calcium [Mass/Vol] 8.7 mg/dL Normal 8.4-10.2 [facility] Comment on above: Order Comment: [facility]Fla[facility] SURVEILLANCE OBSERVER Performed By: #### E 2, FSH, PROG, LH #### [address] [address] #### TSH, CBC, ADIFF, VIDH, GFR, ANEU, A1C, CMP, LIPID, [id number] #### [address] [address] Chloride [Moles/Vol] 107 mmol/L Normal 98-107 [facility] Comment on above: Order Comment: OB/GY N-[facility] SURVEILLANCE OBSERVER Performed By: #### E 2, FSH, PROG, LH #### [address] [address] #### TSH, CBC, ADIFF, VIDH, GFR, ANEU, A1C, CMP, LIPID, [id number] #### [address] [address] CO2 [Moles/Vol] 24 mmol/L Normal 22-29 [facility] Comment on above: Order Comment: [facility]Fla[facility] SURVEILLANCE OBSERVER Performed By: #### E 2, FSH, PROG, LH #### [address] [address] #### TSH, CBC, ADIFF, VIDH, GFR, ANEU, A1C, CMP, LIPID, [id number] #### [address] [address] Creatinine [Mass/Vol] 0.77 mg/dL Normal 0.51-0.95 [facility] Comment on above: Order Comment: [facility]Fla[facility] SURVEILLANCE OBSERVER Performed By: #### E 2, FSH, PROG, LH #### [address] [address] #### TSH, CBC, ADIFF, VIDH, GFR, ANEU, A1C, CMP, LIPID, [id number] #### [address] [address] Electrolyte Balance 9.0 mEq/L Normal 4.0-15.0 [facility] Comment on above: Order Comment: [facility]Fla[facility] SURVEILLANCE OBSERVER Performed By: #### E 2, FSH, PROG, LH #### [address] [address] #### TSH, CBC, ADIFF, VIDH, GFR, ANEU, A1C, CMP, LIPID, [id number] #### [address] [address] Globulin 4.0 G/dL Normal 2.7-4.4 [facility] Comment on above: Order Comment: [facility]Fla[facility] SURVEILLANCE OBSERVER Performed By: #### E 2, FSH, PROG, LH #### [address] [address] #### TSH, CBC, ADIFF, VIDH, GFR, ANEU, A1C, CMP, LIPID, [id number] #### [address] [address] Glucose [Mass/Vol] 88 mg/dL Normal 70-105 [facility] Comment on above: Order Comment: OB/GY N-[facility] SURVEILLANCE OBSERVER Performed By: #### E 2, FSH, PROG, LH #### [address] [address] #### TSH, CBC, ADIFF, VIDH, GFR, ANEU, A1C, CMP, LIPID, [id number] #### [address] [address] Potassium [Moles/Vol] 4.0 mmol/L Normal 3.5-5.1 [facility] Comment on above: Order Comment: [facility] SURVEILLANCE OBSERVER Performed By: #### E 2, FSH, PROG, LH #### [address] [address] #### TSH, CBC, ADIFF, VIDH, GFR, ANEU, A1C, CMP, LIPID, [id number] #### [address] [address] Sodium [Moles/Vol] 140 mmol/L Normal 136-145 [facility] Comment on above: Order Comment: [facility] SURVEILLANCE OBSERVER Performed By: #### E 2, FSH, PROG, LH #### [address] [address] #### TSH, CBC, ADIFF, VIDH, GFR, ANEU, A1C, CMP, LIPID, [id number] #### [address] [address] Total Protein 6.8 G/dL Normal 6.4-8.2 [facility] Comment on above: Order Comment: [facility] SURVEILLANCE OBSERVER Performed By: #### E 2, FSH, PROG, LH #### [address] [address] #### TSH, CBC, ADIFF, VIDH, GFR, ANEU, A1C, CMP, LIPID, [id number] #### [address] [address] Urea nitrogen [Mass/Vol] 12 mg/dL Normal 7-18 [facility] Comment on above: Order Comment: [facility] SURVEILLANCE OBSERVER Performed By: #### E 2, FSH, PROG, LH #### [address] [address] #### TSH, CBC, ADIFF, VIDH, GFR, ANEU, A1C, CMP, LIPID, [id number] #### [address] [address] E2on 10-21-2024 Estradiol Level 12.56 pg/mL Normal [facility] Comment on above: Order Comment: cc re sults to APARTMENT PROPERTY MANAGER-[place] jesu Higuera SURVEILLANCE OBSERVER Result Comment: Adult Female E2 Reference Ranges: Follicular phase 19.5 - 144.2 pg/mL Midcycle 63.9 - 356.7 pg/mL Luteal phase 55.8 - 214.2 pg/mL Post menopausal 0 - 33.2 pg/mL Performed By: #### E 2, FSH, PROG, LH #### [address] [address] #### TSH, CBC, ADIFF, VIDH, GFR, ANEU, A1C, CMP, LIPID, [id number] #### [address] [address] FSHon 10-21-2024 FSH 0.5 mIU/mL Normal [facility] Comment on above: Order Comment: cc re sults to APARTMENT PROPERTY MANAGER-[facility] SURVEILLANCE OBSERVER Result Comment: Adul t Female FSH Reference Ranges (04/23/99): Follicular phase 2.5 - 10.2 mIU/mL Midcycle phase 3.4 - 33.4 mIU/mL Luteal phase 1.5 - 9.1 mIU/mL Post menopausal 23.0 -116.3 mIU/mL Adult Male: 1.4 - 18.1 mIU/mL Performed By: #### E 2, FSH, PROG, LH #### [address] [address] #### TSH, CBC, ADIFF, VIDH, GFR, ANEU, A1C, CMP, LIPID, [id number] #### [address] [address] FT4on 10-21-2024 Free T4 [Mass/Vol] 0.94 ng/dL Normal 0.76-1.46 [facility] Comment on above: Order Comment: cc re sults to APARTMENT PROPERTY MANAGER-[facility] SURVEILLANCE OBSERVER Performed By: #### E 2, FSH, PROG, LH #### [address] [address] #### TSH, CBC, ADIFF, VIDH, GFR, ANEU, A1C, CMP, LIPID, [id number] #### [address] [address] LHon 10-21-2024 LH 0.1 mIU/mL Normal [facility] Comment on above: Order Comment: cc anika bundy to APARTMENT PROPERTY MANAGER-[facility] SURVEILLANCE OBSERVER Result Comment: No te - New Reference Range in effect 19Adult Female LH Reference Ranges: Follicular phase 1.9 - 12.5 mIU/mL Midcycle phase 8.7 - 76.3 mIU/mL Luteal phase 0.5 - 16.9 mIU/mL Post menopausal 5.0 - 55.2 mIU/mL Performed By: #### E 2, FSH, PROG, LH #### [address] [address] #### TSH, CBC, ADIFF, VIDH, GFR, ANEU, A1C, CMP, LIPID, [id number] #### [address] [address] LIPIDon 10-21-2024 Cholesterol [Mass/Vol] 155 mg/dL Normal 0-200 [facility] Comment on above: Order Comment: [facility] SURVEILLANCE OBSERVER Result Comment: Chol esterol Reference Interval: Less than 200 Desirable 200-239 Borderline high risk 240 and above High risk Performed By: #### E 2, FSH, PROG, LH #### [address] [address] #### TSH, CBC, ADIFF, VIDH, GFR, ANEU, A1C, CMP, LIPID, [id number] #### [address] [address] Cholesterol in HDL [Mass/Vol] 69 mg/dL High 40-60 [facility] Comment on above: Order Comment: [facility] SURVEILLANCE OBSERVER Performed By: #### E 2, FSH, PROG, LH #### [address] [address] #### TSH, CBC, ADIFF, VIDH, GFR, ANEU, A1C, CMP, LIPID, [id number] #### [address] [address] Cholesterol in LDL [Mass/Vol] 54 mg/dL Normal 0-130 [facility] Comment on above: Order Comment: [facility] SURVEILLANCE OBSERVER Performed By: #### E 2, FSH, PROG, LH #### [address] [address] #### TSH, CBC, ADIFF, VIDH, GFR, ANEU, A1C, CMP, LIPID, [id number] #### [address] [address] Triglyceride [Mass/Vol] 159 mg/dL High 0-150 [facility] Comment on above: Order Comment: [facility] SURVEILLANCE OBSERVER Result Comment: Trig lyceride Reference Interval: Less than 150 Normal 150-199 Borderline high risk 200-499 High risk 500 or higher Very high risk Performed By: #### E 2, FSH, PROG, LH #### [place] [address] #### TSH, CBC, ADIFF, VIDH, GFR, ANEU, A1C, CMP, LIPID, [id number] #### [address] [address] PROGon 10-21-2024 Progesterone Level 0.2 ng/mL Normal [facility] Comment on above: Order Comment: markus bundy to APARTMENT PROPERTY MANAGER-[facility] SURVEILLANCE OBSERVER Result Comment: Adul t Female Progesterone Reference Ranges: Follicular phase <0.21 - 1.40 ng/mL Luteal phase 3.34 - 25.56 ng/mL Mid-Luteal phase 4.44 - 28.03 ng/mL Postmenopausal <0.21 - 0.73 ng/ml Female: First trimester 11.22 - 90.00 ng/ml Second trimester 25.55 - 89.40 ng/ml Third trimester 48.40 - 422.50 ng/ml Performed By: #### E 2, FSH, PROG, LH #### [address] [address] #### TSH, CBC, ADIFF, VIDH, GFR, ANEU, A1C, CMP, LIPID, [id number] #### [address] [address] TSHon 10-21-2024 TSH Qn 1.47 m[IU]/L Normal 0.36-3.74 [facility] Comment on above: Order Comment: cc re sults to APARTMENT PROPERTY MANAGER-[facility] SURVEILLANCE OBSERVER Performed By: #### E 2, FSH, PROG, LH #### [address] [address] #### TSH, CBC, ADIFF, VIDH, GFR, ANEU, A1C, CMP, LIPID, [id number] #### [address] [address] VIDHon 10-21-2024 Vit. D 25-Hydroxy 46.9 ng/mL Normal [facility] Comment on above: Order Comment: OB/GY N-[facility] SURVEILLANCE OBSERVER Result Comment: Inte rpretive Values Based on Total 25(OH) Vitamin D: Deficient <20 ng/mL Insufficient 20 - <30 ng/mL Sufficient 30-100 ng/mL Performed By: #### E 2, FSH, PROG, LH #### [address] [address] #### TSH, CBC, ADIFF, VIDH, GFR, ANEU, A1C, CMP, LIPID, [id number] #### [address] [address] XR CHEST 2 VIEWSon XR CHEST 2 VIEWS ORIGINAL EXAMINATION: TWO XRAY VIEWS OF THE CHEST TECHNIQUE: CHEST AP/PA and LATERAL COMPARISON: April 26 2022 HISTORY: ORDERING SYSTEM PROVIDED HISTORY: Reason for Exam: cough productive; wheezing FINDINGS: The heart is not enlarged. The mediastinal silhouette is unremarkable. No consolidation. No pleural effusion. No pneumothorax. No vascular congestion. No aggressive osseous lesions. IMPRESSION: No acute process. I have personally reviewed the images of this examination and agree with the resident's findings and interpretation. Interpreted by: Micah Oconnell MD Preliminary Report By: Donte Gauthier MD Electronically signed By Micah Oconnell MD Dictated Date: 06/13/2024 9:18:01 AM Prelim Date: 06/13/2024 9:27:00 AM Sign Date: 06/13/2024 9:27:00 AM Ordering Provider: GIOVNANI Abraham [facility] Plastic Surgery Visit Report on 05-23-2024 Plastic Surgery Visit Report [facility] [address], [address] [place] [address] OFFICE VISIT Date of Service: 05/23/24 MR#: [id number] Acct: [id number] Name: ROBERTO NAVA Rep #: [id number] : 1980 Provider: Dr. Cassidy duff MD Age/Sex: 44/F Location: [facility] Status: Signed Intake Vital Signs 04/26/24 13:38 05/23/24 09:54 Height 5 ft 6 in 5 ft 6 in Weight: 225 lb 2 oz 226 lb BMI 36.3 36.4 BP 117/71 120/84 H Blood Pressure Location Lt brachial Position Sitting Respiration 18 Pulse 110 H Temp 98.7 F Temp Source Oral Pulse Oximetry (%) 98 Oxygen Delivery Method room air Intake Visit Reasons: BREAST REDUCTION Chief Complaint: breast reduction consult Is patient in pain?: Yes (10/07 back) Allergies sulfamethoxazole (From Bactrim) Allergy (Verified 05/23/24 09:55) Angioedema trimethoprim (From Bactrim) Allergy (Verified 05/23/24 09:55) Angioedema Medications ???Medication ???Instructions ???Recorded ???Confirmed ???Type Clarinex 04/10/21 04/26/24 History Crestor 04/10/21 04/26/24 History azelastine 137 mcg (0.1 %) nasal intranasal 04/10/21 04/26/24 History spray fluticasone propionate 50 intranasal 04/10/21 05/23/24 History mcg/actuation nasal spray,suspension omeprazole 20 mg capsule,delayed 20 mg PO DAILY #30 CAPSULES 04/10/21 04/26/24 Rx release lisdexamfetamine 30 mg capsule 30 mg PO DAILY 03/04/23 04/26/24 History (Vyvanse) ondansetron 4 mg disintegrating 4 mg PO Q6H PRN nausea and 06/18/23 04/26/24 Rx tablet vomiting #30 tabs bupropion HCl 300 mg 24 hr tablet, 300 mg PO QAM 04/26/24 05/23/24 History extended release cholecalciferol (vitamin D3) 25 25 mcg PO QDAY 04/26/24 04/26/24 History mcg (1,000 unit) capsule drospirenone 3 mg-ethinyl 1 tab PO DAILY #84 tabs 04/26/24 05/23/24 Rx estradiol 0.02 mg tablet (CHARLIE (28)) cholecalciferol (vitamin D3) 50 50 mcg PO QDAY 05/23/24 05/23/24 History mcg (2,000 unit) capsule drospirenone 3 mg-ethinyl 1 tab PO QDAY 05/23/24 05/23/24 History estradiol 0.02 mg tablet (Vestura (28)) lisdexamfetamine 30 mg capsule 30 mg PO QAM 05/23/24 05/23/24 History (Vyvanse) pantoprazole 40 mg tablet,delayed 40 mg PO QDAY 05/23/24 05/23/24 History release rosuvastatin 10 mg tablet 10 mg PO QHS 05/23/24 05/23/24 History Nurse's Note: pt inquiring about breast reduction, referred by [facility]. [facility] Medical History (Updated 05/23/24 @ 10:[address] Cassidy Bianchi MD) History of endometriosis History of pneumonia History of irritable bowel syndrome History of hypoglycemia History of high cholesterol Family history of GERD History of depression History of breast lump History of back problems History of environmental allergies Asthma Endometriosis Surgical History (Updated 05/23/24 @ 09:43 by Taylor Lomas) History of cholecystectomy History of ear, nose, and throat (ENT) surgery H/O laparoscopy Family History (Updated 05/23/24 @ 09:44 by Taylor Lomas) Mother Breast cancer Uterine cancer Osteoporosis Aunt Breast cancer Uterine cancer Father Hypertension High cholesterol Angina at rest Alcoholism Grandmother Breast cancer Cervical cancer Diabetes Uterine cancer Grandfather Diabetes Social History (Updated 05/23/24 @ 09:54 by Taylor Lomas) adopted: No household members: family housing: house current occupational status: employed 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 Uses ibuprofen every other day due to VASQUES uses aspirin spouse Ruben - children 2 HPI BREAST REDUCTION Details: Roberto comes in for consideration of breast reduction surgery. She has a chronic history of shoulder and neck pain for which she sees a chiropractor. She also has episodes of intertrigo for which she applies a prescribed cream. Her medical history is significant for her mother leroy breast cancer. Roberto was tested for the BRCA gene which was negative. She denies use of nicotine, vaping, or marijuana products. ROS General General: Yes good health and fatigue; No fever(s) or weight loss HENMT HENMT: Yes rhinitis; No sore throat/mouth sore, nasal congestion, contacts or glaucoma Endo Endocrine: No thyroid disease, polydipsia, heat intolerance, cold intolerance, hepatitis or excessive urine Skin Skin: No Bleeding, bruising, changing moles or suspicious lesion (more content not included)... Normal [facility] SCRN MAMM (CAD)W/LEE BILATo n 05-23-2024 SCRN MAMM (CAD)W/LEE BILAT [facility] [address] [place] [address] SCRN MAMM (CAD)W/LEE BILAT MR#: [id number] Acct: [id number] Name: ROBERTO NAVA Rep #: [id number] : 1980 F 44 From: Joaquín Melton MD PCP: Dr. Giovanni Maldonado, DO Status: REG CLI Study: SCRN MAMM (CAD)W/LEE BILAT Date of Exam: 05/01 09/21 Exam# [id number] Ordering Dr: Flaquita Higuera [facility] [id number] MAMMOGRAPHY - BILATERAL SCREENING 3-D TOMOSYNTHESIS REASON FOR EXAM: Female, 44 years old. screening mammogram PERTINENT HISTORY: No significant family history. TECHNIQUE: 2-D mammograms and 3-D Tomosynthesis of the breast (s) were performed. CAD was performed. COMPARISON: 10/08/2022 FINDINGS: The breast composition is heterogeneously dense that can obscure small breast masses. Scattered benign calcifications are seen. No dense spiculated masses or suspicious microcalcifications are identified. No architectural distortion is identified. There is no skin thickening or retraction. There has been no significant change since the prior study. BI/SCRN MAMM (CAD)W/LEE BILAT IMPRESSION: No mammographic signs of malignancy. Routine yearly mammograms recommended. ASSESSMENT CATEGORY: BIRADS Category 1: Negative. A letter regarding these results will be sent to the patient by the facility within 30 days. FOLLOW UP RECOMMENDATION: Yearly follow up mammogram recommended. (A) Approximately 10% of breast cancers are not detected by mammography. A normal mammogram should not delay biopsy of a clinically suspicious abnormality. Electronically Signed: Joaquín Melton MD at 15:35 EST , CC: LORA Higuera; Dr. Giovanni Maldonado, Meat Grinder: Signed Normal [facility] PAP IG HPV APTIMA 16/18,45on 05-05-2024 ADEQ Comment Normal . [facility] Comment on above: Order Comment: Speci men Comment: [id number] Specimen Comment: Source.............Cervix Specimen Comment: No. of containers..01 ThinPrep Vial Result Comment: Sati sfactory for evaluation. Endocervical and/or squamous metaplastic cells (endocervical component) are present. Performed By: #### L 7400.0280 #### [facility] [address] [place], [place], [id number] COMM . Normal . [facility] Comment on above: Order Comment: Speci men Comment: [id number] Specimen Comment: Source.............Cervix Specimen Comment: No. of containers..01 ThinPrep Vial Performed By: #### L 7400.0280 #### [facility] [address] [place], [place], [id number] COMMENT Comment Normal . [facility] Comment on above: Order Comment: Speci men Comment: [id number] Specimen Comment: Source.............Cervix Specimen Comment: No. of containers..01 ThinPrep Vial Result Comment: This liquid based ThinPrep(R) pap test was screened with the use of an image guided system. Performed By: #### L 7400.0280 #### [facility] [address] [place], [place], [address] DIAG Comment Normal . [facility] Comment on above: Order Comment: Speci men Comment: [id number] Specimen Comment: Source.............Cervix Specimen Comment: No. of containers..01 ThinPrep Vial Result Comment: NEGA TIVE FOR INTRAEPITHELIAL LESION OR MALIGNANCY. Performed By: #### L 7400.0280 #### [facility] [address] [place], [place], [id number] HPV APTIMA, HR Negative Normal Negative [facility] Comment on above: Order Comment: Speci men Comment: [id number] Specimen Comment: Source.............Cervix Specimen Comment: No. of containers..01 ThinPrep Vial Result Comment: This nucleic acid amplification test detects fourteen high- risk HPV types (16,18,31,33,35,39,45,51,52,56,58,59,66,68) without differentiation. Performed By: #### L 7400.0280 #### [facility] [address] [place], [place], [address] HPV Kandace Rfx Comment Normal . [facility] Comment on above: Order Comment: Speci men Comment: [id number] Specimen Comment: Source.............Cervix Specimen Comment: No. of containers..01 ThinPrep Vial Result Comment: Crit eria not met, HPV Genotype not performed. Performed at: [address] [place] [id number] Languages And Literature Instructor: Genny Baltazar MD, Phone: [phone] Performed at: =G - [facility] [id number] Languages And Literature Instructor: Genny Baltazar MD, Phone: [phone] Performed By: #### L 7400.0280 #### [facility] [address] [place], [address] PAPSMR Comment Normal . [facility] Comment on above: Order Comment: Speci men Comment: [id number] Specimen Comment: Source.............Cervix Specimen Comment: No. of containers..01 ThinPrep Vial Result Comment: The Pap smear is a screening test designed to aid in the detection of premalignant and malignant conditions of the uterine cervix. It is not a diagnostic procedure and should not be used as the sole means of detecting cervical cancer. Both false-positive and false-negative reports do occur. Performed By: #### L 7400.0280 #### [facility] [address] [place], [address] PERFORM Comment Normal . [facility] Comment on above: Order Comment: Speci men Comment: [id number] Specimen Comment: Source.............Cervix Specimen Comment: No. of containers..01 ThinPrep Vial Result Comment: Randall Palomino, Mine Car Dispatcher (ASCP) Performed By: #### L 7400.0280 #### [facility] [address] [place], [address] Mechanical Developer Prover Office Visit Reporton 04-26-2024 Mechanical Developer Prover Office Visit Report [facility]'s [address], [address] [place] [address] OFFICE VISIT Date of Service: 04/26/24 MR#: [id number] Acct: [id number] Name: ROBERTO NAVA Rep #: [id number] : 1980 Provider: LORA Dee ams Age/Sex: 43/F Location: [facility] Status: Signed Intake Vital Signs 06/18/23 16:08 04/26/24 13:38 Height 5 ft 6 in 5 ft 6 in Weight: 225 lb 2 oz BMI 36.3 BP 117/71 Intake Visit Reasons: Annual (CARE REP) At Risk Paraprofessional Required: No Is patient in pain?: No Feel stressed/tense/nervous /anxious/difficulty sleeping: to some extent (sees a counselor at least once a month and on antidepressant ) Allergies sulfamethoxazole (From Bactrim) Allergy (Verified 04/26/24 13:41) Angioedema trimethoprim (From Bactrim) Allergy (Verified 04/26/24 13:41) Angioedema Medications ???Medication ???Instructions ???Recorded ???Confirmed ???Type Clarinex 04/10/21 04/26/24 History Crestor 04/10/21 04/26/24 History azelastine 137 mcg (0.1 %) nasal intranasal 04/10/21 04/26/24 History spray fluticasone propionate 50 intranasal 04/10/21 04/26/24 History mcg/actuation nasal spray,suspension omeprazole 20 mg capsule,delayed 20 mg PO DAILY #30 CAPSULES 04/10/21 04/26/24 Rx release lisdexamfetamine 30 mg capsule 30 mg PO DAILY 03/04/23 04/26/24 History (Vyvanse) ondansetron 4 mg disintegrating 4 mg PO Q6H PRN nausea and 06/18/23 04/26/24 Rx tablet vomiting #30 tabs bupropion HCl 300 mg 24 hr tablet, 300 mg PO QAM 04/26/24 04/26/24 History extended release cholecalciferol (vitamin D3) 25 25 mcg PO QDAY 04/26/24 04/26/24 History mcg (1,000 unit) capsule drospirenone 3 mg-ethinyl 1 tab PO DAILY #84 tabs 04/26/24 04/26/24 Rx estradiol 0.02 mg tablet (CHARLIE (28)) Is last menstrual period known: No Post menopausal: No Patient : No : No PFSH Medical History Asthma Endometriosis Surgical History H/O laparoscopy Family History Mother Breast cancer Uterine cancer Aunt Breast cancer Uterine cancer Father Hypertension High cholesterol Social History adopted: No household members: family housing: house current occupational status: employed 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 Doing well on the OCP. Last PAP: 2020 History of abnormal PAP: Last mammogram: done at [facility] History of abnormal mammogram: Colon cancer screening: colonoscopy in 2020 Other preventative health care screenings: PCP is Dr. Maldonado at [facility] - PCP monitors routine labs ROS Const Constitutional: Reports system reviewed and no additional complaints, except as documented Cardio Card: Reports system reviewed and no additional complaints, except as documented Resp Resp: Reports system reviewed and no additional complaints, except as documented GI GI: Reports system reviewed and no additional complaints, except as documented : Reports system reviewed and no additional complaints, except as documented; Denies difficulty voiding, dysuria or urinary frequency Skin Skin/Breast: Reports system reviewed and no additional complaints, except as documented Neuro Neuro: Reports system reviewed and no additional complaints, except as documented Psych Psych: Reports system reviewed and no additional complaints, except as documented; Denies anhedonia, anxiety or depression Exam Const General: cooperative, healthy appearing, comfortable and no acute distress Orientation: alert, awake and oriented x3 Neck Neck: normal visual inspection and full ROM Thyroid: thyroid normal Chest Breast inspection: normal inspection of the breasts and normal inspection of the axillae Breast palpation: normal palpation of the breasts and normal palpation of the axillae Resp Effort Inspection: normal respiratory effort, able to speak in complete sentences and symmetric chest movement GI Inspection: normal to inspection Palpation: soft Rectal Exam: visual inspection normal External Female Exam: normal external appearance and normal appearance of the urethra Urethra: normal appearance of the urethra Spe (more content not included)... Normal [facility] LABORATORYOrdered By: Cely Zhou on 11-22-2023 Amphetamines Screen Ql (U) Positive *ABN* (11/22/23 5:11 PM) Invalid Interpretation Code AO ADM SS Barbiturates Screen Ql (U) Negative *NA* (11/22/23 5:11 PM) Invalid Interpretation Code AO ADM SS Benzodiazepines Ql (U) Negative *NA* (11/22/23 5:11 PM) Invalid Interpretation Code AO ADM SS Benzoylecgonine Screen Ql (U) Negative *NA* (11/22/23 5:11 PM) Invalid Interpretation Code AO ADM SS Cannabinoids Screen Ql (U) Negative *NA* (11/22/23 5:11 PM) Invalid Interpretation Code AO ADM SS Methadone Screen Ql (U) Negative *NA* (11/22/23 5:11 PM) Invalid Interpretation Code AO ADM SS Opiates Screen Ql (U) Negative *NA* (11/22/23 5:11 PM) Invalid Interpretation Code AO ADM SS Phencyclidine Ql (U) Negative *NA* (11/22/23 5:11 PM) Invalid Interpretation Code AO ADM SS Urine Drugs screened: See Below 1 (11/22/23 5:11 PM) Normal AO Chemistry S Comment on above: Interpretive Data: T his drug screen is a presumptive screening only. No confirmation will be performed unless requested. Drugs screened include: Threshold Amphetamines/Methamphetamines 1,000 ng/mL Barbiturates 200 ng/mL Benzodiazepine metabolites 200 ng/mL Cannabinoids (THC metabolites) 50 ng/mL Cocaine 300 ng/mL Opiates 300 ng/mL Methadone 300 ng/mL Phencyclidine (PCP) 25 ng/mL Testing has been performed FOR MEDICAL PURPOSES ONLY. UDRUGon 11-22-2023 Amphetamine (u) Positive Abnormal Negative [facility] ([place]) Comment on above: Performed By: #### U DRUG #### [address] [place] [id number] [place], [place] [address] Barbiturate (u) Negative Normal Negative [facility] ([place]) Comment on above: Performed By: #### U DRUG #### [address] [place] [address] Benzodiazepine (u) Negative Normal Negative [facility] ([place]) Comment on above: Performed By: #### U DRUG #### [address] [address] Cannabinoid (u) Negative Normal Negative [facility] ([place]) Comment on above: Performed By: #### U DRUG #### [address] [address] Cocaine Ql (U) Negative Normal Negative [facility] ([place]) Comment on above: Performed By: #### U DRUG #### [address] [address] Methadone Ql (U) Negative Normal Negative [facility] ([place]) Comment on above: Performed By: #### U DRUG #### [address] [address] Opiate (u) Negative Normal Negative [facility] ([place]) Comment on above: Performed By: #### U DRUG #### [address] [address] PCP (u) Negative Normal Negative [facility] ([place]) Comment on above: Performed By: #### U DRUG #### [address] [address] Urine Drugs screened: See Below Normal [facility] ([place]) Comment on above: Result Comment: This drug screen is a presumptive screening only. No confirmation will be performed unless requested. Drugs screened include: Threshold Amphetamines/Methamphetamines 1,000 ng/mL Barbiturates 200 ng/mL Benzodiazepine metabolites 200 ng/mL Cannabinoids (THC metabolites) 50 ng/mL Cocaine 300 ng/mL Opiates 300 ng/mL Methadone 300 ng/mL Phencyclidine (PCP) 25 ng/mL Testing has been performed FOR MEDICAL PURPOSES ONLY. Performed By: #### U DRUG #### [address] [address] Culture, urineOrdered By: Isacc Higuera on 06-18-2023 Bacteria identified Cx Nom (U) Culture exhibits no growth. [facility] - Chemistry and C hemistry - challengeon 06-18-2023 Bilirubin Ql (U) Negative [facility] Glucose Ql (U) Negative [facility] Ketones Ql (U) Trace (5) [facility] pH (U) 5.0 [pH] [facility] Specific gravity (U) [Rel density] 1.010 [facility] Urobilinogen (U) [Mass/Vol] Negative [facility] Laboratory - Hematology and Cell countson 06-18-2023 Hemoglobin Ql (U) Moderate [facility] - Specimen inform ationon 06-18-2023 Clarity (U) Cloudy [facility] Color (U) DARK YELLOW [facility] Laboratory - Urinalysison Nitrite Ql (U) Negative [facility] Protein Ql (U) Negative [facility] No Panel Informationon 06-18 Urine Leukocytes Positive [facility] Urine Non-Hemolyzed Blood Non-Hemolyzed [facility] Basophil percentageOrdered B y: Giovanni Maldonado on 06-07-2023 Bilirubin [Mass/Vol] 0.20 mg/dL 0.20-1.00 [facility] Comment on above: For patients on eltr ombopag therapy, use of Dimension [place] TBIL is not recommended. Chloride [Moles/Vol] 112 mmol/L 98-107 [facility] Cholesterol [Mass/Vol] 139 mg/dL <200 [facility] Comment on above: <200 mg/dL Desirable 200-240 mg/dL Borderline >240 mg/dL High Risk Glucose [Mass/Vol] 99 mg/dL 74-106 [facility] Potassium [Moles/Vol] 3.9 mmol/L 3.5-5.1 [facility] Protein [Mass/Vol] 6.4 g/dL 6.4-8.2 [facility] Sodium [Moles/Vol] 141 mmol/L 136-145 [facility] Triglyceride [Mass/Vol] 119 mg/dL <199 [facility] Comment on above: The drugs N-Acetylcy steine and Metamizole may falsely depress this assay.Serum Triglycerides Reference Interval Normal <150 mg/dL Borderline high 150 - 199 mg/dL High 200 - 499 mg/dL Very High > or = 500 mg/dL WBC (Bld) [#/Vol] 8.5 10*3/uL 4.4-11.0 [facility] Blood erythrocytes count (nu mber/volume)Ordered By: Giovanni Maldonado on 06-07-2023 RBC (Bld) [#/Vol] 4.17 10*6/uL 4.2-5.4 [facility] Blood hemoglobin measurement (mass/volume)Ordered By: Giovanni Maldonado on 06-07-2023 Hemoglobin (Bld) [Mass/Vol] 12.3 g/dL 12.0-15.0 [facility] Blood platelet mean volumeOr dered By: Giovanni Maldonado on 06-07-2023 Platelet mean volume (Bld) [Entitic vol] 9.2 fL 6.2-12.0 [facility] Determination of erythrocyte mean corpuscular volume (MCV)Ordered By: Giovanni Maldonado on 06-07-2023 MCV (RBC) [Entitic vol] 93.0 fL 81-99 [facility] Hematocrit Auto (Bld) [Volum e fraction]Ordered By: Giovanni Maldonado on 06-07-2023 Hematocrit (Bld) [Volume fraction] 38.8 % 37-47 [facility] - Chemistry and C hemistry - challengeOrdered By: Giovanni Maldonado on 06-07-2023 ALP [Catalytic activity/Vol] 33 U/L 45-117 [facility] ALT [Catalytic activity/Vol] 16 U/L 13-56 [facility] CO2 [Moles/Vol] 26.0 mmol/L 21.0-32.0 [facility] Globulin (S) [Mass/Vol] 3.5 g/dL 2.2-4.2 [facility] Urea nitrogen/Creatinine [Mass ratio] 17.2 mg/mg 10-20 [facility] Laboratory - Hematology and Cell countsOrdered By: Giovanni Maldonado on 06-07-2023 Erythrocyte distribution width (RBC) [Entitic vol] 41.5 fL 35.1-43.9 [facility] Erythrocyte distribution width (RBC) [Ratio] 12.1 % 11.6-14.6 [facility] MCH (RBC) [Entitic mass] 29.5 pg 27.0-32.0 [facility] MCHC Auto (RBC) [Mass/Vol]Or dered By: Giovanni Maldonado on 06-07-2023 MCHC (RBC) [Mass/Vol] 31.7 g/dL 32-36 [facility] No Panel InformationOrdered By: Giovanni Maldonado on 06-07-2023 Estimated GFR (MDRD) Amer 119 mL/min >60 [facility] Comment on above: GFR Calc Estimated GFR (MDRD) Non-Af Amer 98 mL/min >60 [facility] Comment on above: Non- GFR Calc Hepatitis C Antibody Non-Reactive Nonreactive [facility] Comment on above: Non Reactive: < 0.8 Equivocal: >/= 0.8 to < 1.0 Reactive: >/= 1.0The CDC recommends that a reactive/equivocal HCV antibody result be followed up by the HCV Nucleic Acid Amplificationtest (372206) Platelets bldOrdered By: Santos Maldonado on 06-07-2023 Platelets (Bld) [#/Vol] 355 10*3/uL 150-450 [facility] Serum or plasma albumin urmila urement (mass/volume)Ordered By: Giovanni Maldonado on 06-07-2023 Albumin [Mass/Vol] 2.9 g/dL 3.2-5.0 [facility] Serum or plasma albumin/glob ulin mass ratioOrdered By: Giovanni Maldonado on 06-07-2023 Albumin/Globulin [Mass ratio] 0.8 {ratio} 0.9-2.4 [facility] Serum or plasma calcium urmila urement (mass/volume)Ordered By: Giovanni Maldonado on 06-07-2023 Calcium [Mass/Vol] 8.6 mg/dL 8.5-10.1 [facility] Serum or plasma cholesterol in HDL measurement (mass/volume)Ordered By: Giovanni Maldonado on 06-07-2023 Cholesterol in HDL [Mass/Vol] 66 mg/dL >40 [facility] Comment on above: The drugs N-Acetylcy steine and Metamizole may falsely depress this assay. Reference Range HDL <40 mg/dL Low HDL Cholesterol HDL >or= 60 mg/dL High HDL Cholesterol Serum or plasma cholesterol in VLDL measurement (mass/volume)Ordered By: Giovanni Maldonado on 06-07-2023 Cholesterol in VLDL [Mass/Vol] 24 mg/dL 5-40 [facility] Serum or plasma creatinine m easurement (mass/volume)Ordered By: Giovanni Maldonado on 06-07-2023 Creatinine [Mass/Vol] 0.70 mg/dL 0.55-1.02 [facility] Comment on above: The validity of the calculated GFR & GFRAA in patients over 70 years has not been determined. Clinical correlation is essential. Serum or plasma low density lipoprotein (LDL) cholesterol measurement (mass/volume)Ordered By: Giovanni Maldonado on 06-07-2023 Cholesterol in LDL [Mass/Vol] 49 mg/dL 0-130 [facility] Serum or plasma urea nitroge n measurement (mass/volume)Ordered By: Giovanni Maldonado on 06-07-2023 Urea nitrogen [Mass/Vol] 12 mg/dL 7-18 [facility] Thin prep Papanicolaou smear with manual screeningOrdered By: Giovanni Maldonado on 06-07-2023 Thin prep Papanicolaou smear with manual screening 8 U/L 15-37 [facility] Thin prep Papanicolaou smear with manual screening 3 5-15 [facility] Whole blood hemoglobin A1c/t otal hemoglobin ratio (mass fraction)Ordered By: Giovanni Maldonado on 06-07-2023 HbA1c (Bld) [Mass fraction] 5.4 % 3.8-5.6 [facility] Comment on above: Normal < 5.7 % Predi abetic 5.7 - 6.4 % Diabetic >or= 6.5 % Please note range changes. .Auto Diffon 05-20-2023 Basophil, Absolute 0.0 10 3/mcL Normal 0.0-0.2 [facility] ([place]) Comment on above: Performed By: #### C MP, CBC, LIP, ADIFF, GFR, ANEU #### [address] [address] Basophils/100 WBC (Bld) 0.5 % Normal 0.0-2.5 [facility] ([place]) Comment on above: Performed By: #### C MP, CBC, LIP, ADIFF, GFR, ANEU #### [address] [address] Eosinophil, Absolute 0.2 10 3/mcL Normal 0.0-0.4 [facility] ([place]) Comment on above: Performed By: #### C MP, CBC, LIP, ADIFF, GFR, ANEU #### [address] [address] Eosinophils/100 WBC (Bld) 2.5 % Normal 0.0-7.0 [facility] ([place]) Comment on above: Performed By: #### C MP, CBC, LIP, ADIFF, GFR, ANEU #### [address] [address] Lymphocyte, Absolute 2.3 10 3/mcL Normal 0.8-3.9 [facility] ([place]) Comment on above: Performed By: #### C MP, CBC, LIP, ADIFF, GFR, ANEU #### [address] [address] Lymphocytes/100 WBC (Bld) 30.0 % Normal 10.0-50.0 [facility] ([place]) Comment on above: Performed By: #### C MP, CBC, LIP, ADIFF, GFR, ANEU #### [address] [address] Monocyte, Absolute 0.7 10 3/mcL Normal 0.2-1.0 [facility] ([place]) Comment on above: Performed By: #### C MP, CBC, LIP, ADIFF, GFR, ANEU #### [address] [address] Monocytes/100 WBC (Bld) 9.0 % Normal 1.7-13.0 [facility] ([place]) Comment on above: Performed By: #### C MP, CBC, LIP, ADIFF, GFR, ANEU #### [address] [address] Neutrophils/100 WBC (Bld) 58.0 % Normal 37.0-80.0 [facility] ([place]) Comment on above: Performed By: #### C MP, CBC, LIP, ADIFF, GFR, ANEU #### [address] [address] .GFRon 05-20-2023 GFR 91 ml/min/1.73sqm Normal [facility] ([place]) Comment on above: Result Comment: GFR Population mean for , Non- Americans Ages 20-29 = 116 mL/min/1.73 sq.m. Ages 30-39 = 107 mL/min/1.73 sq.m. Ages 40-49 = 99 mL/min/1.73 sq.m. Ages 50-59 = 93 mL/min/1.73 sq.m. Ages 60-69 = 85 mL/min/1.73 sq.m. Ages 70+ = 75 mL/min/1.73 sq.m. Chronic Kidney Disease: Less than 60 mL/min/1.73 square meters End Stage Renal Disease: Less than 15 mL/min/1.73 square meters Performed By: #### C MP, CBC, LIP, ADIFF, GFR, ANEU #### [address] [address] GFR Non- 75 ml/min/1.73sqm Normal [facility] ([place]) Comment on above: Result Comment: GFR Population mean for , Non- Americans Ages 20-29 = 116 mL/min/1.73 sq.m. Ages 30-39 = 107 mL/min/1.73 sq.m. Ages 40-49 = 99 mL/min/1.73 sq.m. Ages 50-59 = 93 mL/min/1.73 sq.m. Ages 60-69 = 85 mL/min/1.73 sq.m. Ages 70+ = 75 mL/min/1.73 sq.m. Chronic Kidney Disease: Less than 60 mL/min/1.73 square meters End Stage Renal Disease: Less than 15 mL/min/1.73 square meters Performed By: #### C MP, CBC, LIP, ADIFF, GFR, ANEU #### [address] [address] .NEUABSon 05-20-2023 Neutrophil, Absolute 4.4 10 3/mcL Normal 2.9-6.2 [facility] ([place]) Comment on above: Performed By: #### C MP, CBC, LIP, ADIFF, GFR, ANEU #### [address] [address] CBCon 05-20-2023 Erythrocyte distribution width (RBC) [Ratio] 12.8 % Normal 11.5-14.5 [facility] ([place]) Comment on above: Performed By: #### C MP, CBC, LIP, ADIFF, GFR, ANEU #### [address] [address] Hematocrit (Bld) [Volume fraction] 38.8 % Normal 37.0-47.0 [facility] ([place]) Comment on above: Performed By: #### C MP, CBC, LIP, ADIFF, GFR, ANEU #### [place] [id number] Hgb 13.0 G/dL Normal 12.0-16.0 [facility] ([place]) Comment on above: Performed By: #### C MP, CBC, LIP, ADIFF, GFR, ANEU #### [address] [address] MCH (RBC) [Entitic mass] 30.1 pg Normal 27.0-31.2 [facility] ([place]) Comment on above: Performed By: #### C MP, CBC, LIP, ADIFF, GFR, ANEU #### [place] [address] MCHC 33.4 G/dL Normal 33.0-37.0 [facility] ([place]) Comment on above: Performed By: #### C MP, CBC, LIP, ADIFF, GFR, ANEU #### [place] [id number] MCV (RBC) [Entitic vol] 90.1 fL Normal 80.0-94.0 [facility] ([place]) Comment on above: Performed By: #### C MP, CBC, LIP, ADIFF, GFR, ANEU #### [address] [address] Platelet 362 10 3/mcL Normal 130-400 [facility] ([place]) Comment on above: Performed By: #### C MP, CBC, LIP, ADIFF, GFR, ANEU #### [place] [id number] Platelet mean volume (Bld) [Entitic vol] 6.9 fL Low 7.4-10.4 [facility] ([place]) Comment on above: Performed By: #### C MP, CBC, LIP, ADIFF, GFR, ANEU #### [address] [address] RBC 4.31 10 6/mcL Normal 4.20-5.40 [facility] ([place]) Comment on above: Performed By: #### C MP, CBC, LIP, ADIFF, GFR, ANEU #### [address] [address] WBC 7.6 10 3/mcL Normal 4.6-10.8 [facility] ([place]) Comment on above: Performed By: #### C MP, CBC, LIP, ADIFF, GFR, ANEU #### [address] [address] CMPon 05-20-2023 Albumin Level 3.1 G/dL Low 3.5-5.0 [facility] ([place]) Comment on above: Performed By: #### C MP, CBC, LIP, ADIFF, GFR, ANEU #### [address] [address] Albumin/Globulin [Mass ratio] 0.8 {ratio} Low 1.1-2.5 [facility] ([place]) Comment on above: Performed By: #### C MP, CBC, LIP, ADIFF, GFR, ANEU #### [address] [address] ALP [Catalytic activity/Vol] 42 U/L Normal 40-135 [facility] ([place]) Comment on above: Performed By: #### C MP, CBC, LIP, ADIFF, GFR, ANEU #### [address] [address] ALT [Catalytic activity/Vol] 17 U/L Normal 14-59 [facility] ([place]) Comment on above: Performed By: #### C MP, CBC, LIP, ADIFF, GFR, ANEU #### [address] [address] AST [Catalytic activity/Vol] 11 U/L Normal 10-40 [facility] ([place]) Comment on above: Performed By: #### C MP, CBC, LIP, ADIFF, GFR, ANEU #### [address] [address] Bili Total 0.4 mg/dL Normal 0.2-1.0 [facility] ([place]) Comment on above: Result Comment: Use of this assay is not recommended for patients undergoing treatment with eltrombopag due to the potential for falsely elevated results. Performed By: #### C MP, CBC, LIP, ADIFF, GFR, ANEU #### [address] [address] BUN/Creatinine Ratio 12 ratio Normal 7-27 [facility] ([place]) Comment on above: Performed By: #### C MP, CBC, LIP, ADIFF, GFR, ANEU #### [address] [address] Calcium [Mass/Vol] 9.1 mg/dL Normal 8.4-10.2 [facility] ([place]) Comment on above: Performed By: #### C MP, CBC, LIP, ADIFF, GFR, ANEU #### [address] [address] Chloride [Moles/Vol] 105 mmol/L Normal 98-107 [facility] ([place]) Comment on above: Performed By: #### C MP, CBC, LIP, ADIFF, GFR, ANEU #### [address] [address] CO2 [Moles/Vol] 24 mmol/L Normal 22-29 [facility] ([place]) Comment on above: Performed By: #### C MP, CBC, LIP, ADIFF, GFR, ANEU #### [address] [address] Creatinine [Mass/Vol] 0.83 mg/dL Normal 0.55-1.02 [facility] ([place]) Comment on above: Performed By: #### C MP, CBC, LIP, ADIFF, GFR, ANEU #### [address] [address] Electrolyte Balance 13.0 mEq/L Normal 4.0-15.0 [facility] ([place]) Comment on above: Performed By: #### C MP, CBC, LIP, ADIFF, GFR, ANEU #### [address] [address] Globulin 3.7 G/dL Normal [facility] ([place]) Comment on above: Performed By: #### C MP, CBC, LIP, ADIFF, GFR, ANEU #### [address] [address] Glucose [Mass/Vol] 121 mg/dL High 70-105 [facility] ([place]) Comment on above: Performed By: #### C MP, CBC, LIP, ADIFF, GFR, ANEU #### [address] [address] Potassium [Moles/Vol] 3.9 mmol/L Normal 3.5-5.1 [facility] ([place]) Comment on above: Performed By: #### C MP, CBC, LIP, ADIFF, GFR, ANEU #### [address] [address] Sodium [Moles/Vol] 142 mmol/L Normal 136-145 [facility] ([place]) Comment on above: Performed By: #### C MP, CBC, LIP, ADIFF, GFR, ANEU #### [address] [address] Total Protein 6.8 G/dL Normal 6.4-8.2 [facility] ([place]) Comment on above: Performed By: #### C MP, CBC, LIP, ADIFF, GFR, ANEU #### [address] [address] Urea nitrogen [Mass/Vol] 10 mg/dL Normal 7-18 [facility] ([place]) Comment on above: Performed By: #### C MP, CBC, LIP, ADIFF, GFR, ANEU #### [address] [address] [address] ABDOMEN/PELVIS W/O CONTRA STon 05-20-2023 CT ABDOMEN/PELVIS W/O CONTRAST ORIGINAL EXAMINATION: CT OF THE ABDOMEN AND PELVIS WITHOUT CONTRAST 05/20/2023 3:02 pm TECHNIQUE: CT of the abdomen and pelvis was performed without the administration of intravenous contrast. Multiplanar reformatted images are provided for review. Automated exposure control, iterative reconstruction, and/or weight based adjustment of the mA/kV was utilized to reduce the radiation dose to as low as reasonably achievable. COMPARISON: April 20, 2021 HISTORY: ORDERING SYSTEM PROVIDED HISTORY: Reason for Exam: right flank pain, RUQ abdominal pain FINDINGS: Minor degenerative changes are noted in the spine. Lung bases are unremarkable. Liver, spleen, adrenal glands and pancreas are unremarkable. The kidneys are unremarkable and there is no evidence for stone disease. The urinary bladder is grossly normal. No adenopathy, free air or free fluid is evident. Solid pelvic organs and urinary bladder are grossly normal. No GI tract abnormality is visible. No additional contributory finding. IMPRESSION: No acute process. Interpreted by: Giovanni Emmanuel MD Preliminary Report By: Giovanni Emmanuel MD Electronically signed By Giovanni Emmanuel MD Dictated Date: 05/20/2023 3:12:57 PM Prelim Date: 05/20/2023 3:37:51 PM Sign Date: 05/20/2023 3:37:51 PM Ordering Provider: DEB Abraham [facility] ([place]) LIPon 05-20-2023 Lipase Level 38 U/L Normal 16-77 [facility]) Comment on above: Performed By: #### C MP, CBC, LIP, ADIFF, GFR, ANEU #### [facility] [address], [place] [address] No Panel Informationon 05-20 Culture Urine 50,000 - 100,000 cfu/ml Mixed growth consistent with normal urogenital donnell. [facility] Work Phone: Absolute lymphocyte countOrd ered By: Flaquita Higuera on 03-04-2023 Lymphocytes Auto (Unsp spec) [#/Vol] 3.16 10*3/uL 0.83-4.51 [facility] Basophil percentageOrdered B y: Flaquita Higuera on 03-04-2023 Basophils/100 WBC (Bld) 0.5 % 0-1 [facility] Eosinophils/100 WBC (Bld) 1.4 % 0-5 [facility] Neutrophils (Bld) [#/Vol] 8.9 10*3/uL 2.0-7.7 [facility] Neutrophils/100 WBC (Bld) 65.7 % 47-70 [facility] WBC (Bld) [#/Vol] 13.5 10*3/uL 4.4-11.0 [facility] Blood erythrocytes count (nu mber/volume)Ordered By: Flaquita Higuera on 03-04-2023 RBC (Bld) [#/Vol] 4.55 10*6/uL 4.2-5.4 [facility] Blood hemoglobin measurement (mass/volume)Ordered By: Flaquita Higuera on 03-04-2023 Hemoglobin (Bld) [Mass/Vol] 13.5 g/dL 12.0-15.0 [facility] Blood lymphocytes/100 leukoc ytesOrdered By: Flaquita Higuera on 03-04-2023 Lymphocytes/100 WBC (Bld) 23.3 % 19-41 [facility] Blood monocytes/100 leukocyt esOrdered By: Flaquita Higuera on 03-04-2023 Monocytes/100 WBC (Bld) 8.7 % 0-10 [facility] Blood platelet mean volumeOr dered By: Flaquita Higuera on 03-04-2023 Platelet mean volume (Bld) [Entitic vol] 8.9 fL 6.2-12.0 [facility] Determination of erythrocyte mean corpuscular volume (MCV)Ordered By: Flaquita Higuera on 03-04-2023 MCV (RBC) [Entitic vol] 93.4 fL 81-99 [facility] Hematocrit Auto (Bld) [Volum e fraction]Ordered By: Flaquita Higuera on 03-04-2023 Hematocrit (Bld) [Volume fraction] 42.5 % 37-47 [facility] Laboratory - Hematology and Cell countsOrdered By: Flaquita Higuera on 03-04-2023 Erythrocyte distribution width (RBC) [Entitic vol] 42.7 fL 35.1-43.9 [facility] Erythrocyte distribution width (RBC) [Ratio] 12.4 % 11.6-14.6 [facility] Immature granulocytes/100 WBC (Bld) 0.400 % 0.0-0.9 [facility] Comment on above: IG% - Immature Granu locytes (promyelocytes, myelocytes and metamyelocytes) > 1% indicates that a LEFT SHIFT is Present. MCH (RBC) [Entitic mass] 29.7 pg 27.0-32.0 [facility] Nucleated RBC/100 WBC (Bld) [Ratio] 0 % 0-5 [facility] MCHC Auto (RBC) [Mass/Vol]Or dered By: Flaquita Higuera on 03-04-2023 MCHC (RBC) [Mass/Vol] 31.8 g/dL 32-36 [facility] [place] No Panel InformationOrdered By: Flaquita Higuera on 03-04-2023 Thyroid Stimulating Hormone (TSH) 1.08 uIU/mL 0.358-3.74 [facility] Platelets bldOrdered By: Venu Higuera on 03-04-2023 Platelets (Bld) [#/Vol] 411 10*3/uL 150-450 [facility] LABORATORYOrdered By: Paula Hillman on 04-26-2022 Basophil, Absolute 0.1 103/mcL Invalid Interpretation Code 0.0 - 0.2 10^3/mcL AO Workflow SS Basophils/100 WBC (Bld) 0.5 % Invalid Interpretation Code 0.0 - 2.5 % AO Workflow SS Calcium [Mass/Vol] 9.1 mg/dL Invalid Interpretation Code 8.4 - 10.2 mg/dL AO ADM SS Chloride [Moles/Vol] 104 mmol/L Invalid Interpretation Code 98 - 107 mmol/L AO ADM SS CO2 [Moles/Vol] 25 mmol/L Invalid Interpretation Code 22 - 29 mmol/L AO ADM SS Creatinine [Mass/Vol] 0.66 mg/dL Invalid Interpretation Code 0.55 - 1.02 mg/dL AO ADM SS Electrolyte Balance 10.0 mEq/L Invalid Interpretation Code 4.0 - 15.0 mEq/L AO ADM SS Eosinophil, Absolute 0.3 103/mcL Invalid Interpretation Code 0.0 - 0.4 10^3/mcL AO Workflow SS Eosinophils/100 WBC (Bld) 2.3 % Invalid Interpretation Code 0.0 - 7.0 % AO Workflow SS Erythrocyte distribution width (RBC) [Ratio] 13.4 % Invalid Interpretation Code 11.5 - 14.5 % AO Workflow SS Glucose [Mass/Vol] 105 mg/dL Invalid Interpretation Code 70 - 105 mg/dL AO ADM SS Hematocrit (Bld) [Volume fraction] 39.5 % Invalid Interpretation Code 37.0 - 47.0 % AO Workflow SS Hemoglobin (Bld) [Mass/Vol] 13.2 G/dL Invalid Interpretation Code 12.0 - 16.0 G/dL AO Workflow SS Lymphocyte, Absolute 2.4 103/mcL Invalid Interpretation Code 0.8 - 3.9 10^3/mcL AO Workflow SS Lymphocytes/100 WBC (Bld) 21.2 % Invalid Interpretation Code 10.0 - 50.0 % AO Workflow SS MCH (RBC) [Entitic mass] 29.5 pg Invalid Interpretation Code 27.0 - 31.2 pg AO Workflow SS MCHC 33.4 G/dL Invalid Interpretation Code 33.0 - 37.0 G/dL AO Workflow SS MCV (RBC) [Entitic vol] 88.3 fL Invalid Interpretation Code 80.0 - 94.0 fL AO Workflow SS Monocyte distribution width Auto (Bld) [Entitic vol] 18.94 Invalid Interpretation Code 0.00 - 20.00 AO Workflow SS Comment on above: Result Comment: For ED adult patients suspected of sepsis, MDW<=20.0 does not rule out sepsis or risk of sepsis Monocyte, Absolute 0.9 103/mcL Invalid Interpretation Code 0.2 - 1.0 10^3/mcL AO Workflow SS Monocytes/100 WBC (Bld) 7.9 % Invalid Interpretation Code 1.7 - 13.0 % AO Workflow SS Neutrophil, Absolute 7.7 103/mcL Invalid Interpretation Code 2.9 - 6.2 10^3/mcL AO Workflow SS Neutrophils/100 WBC (Bld) 68.1 % Invalid Interpretation Code 37.0 - 80.0 % AO Workflow SS Platelet mean volume (Bld) [Entitic vol] 7.1 fL Invalid Interpretation Code 7.4 - 10.4 fL AO Workflow SS Platelets (Bld) [#/Vol] 332 103/mcL Invalid Interpretation Code 130 - 400 10^3/mcL AO Workflow SS Potassium [Moles/Vol] 3.8 mmol/L Invalid Interpretation Code 3.5 - 5.1 mmol/L AO ADM SS RBC (Bld) [#/Vol] 4.47 106/mcL Invalid Interpretation Code 4.20 - 5.40 10^6/mcL AO Workflow SS Sodium [Moles/Vol] 139 mmol/L Invalid Interpretation Code 136 - 145 mmol/L AO ADM SS Troponin I.cardiac DL <= 0.01 ng/mL [Mass/Vol] 5.7 ng/L Invalid Interpretation Code 0.0 - 51.4 ng/L AO ADM SS Urea nitrogen [Mass/Vol] 12 mg/dL Invalid Interpretation Code 7 - 18 mg/dL AO ADM SS Urea nitrogen/Creatinine [Mass ratio] 18 ratio Invalid Interpretation Code 7 - 27 ratio AO ADM SS WBC (Bld) [#/Vol] 11.4 103/mcL Invalid Interpretation Code 4.6 - 10.8 10^3/mcL AO Workflow SS LABORATORYOrdered By: SYSTEM SYSTEM on 04-26-2022 GFR 120 ml/min/1.73sqm Invalid Interpretation Code AO Chemistry S GFR Non- 99 ml/min/1.73sqm Invalid Interpretation Code AO Chemistry S CT Low Dose Lung Diagnostico n 02-05-2022 CT Low Dose Lung Diagnostic Patient Name: ROBERTO NAVA Computed Tomography ACCESSION EXAM DATE/TIME PROCEDURE ORDERING PROVIDER [id number] 02/05/2022 13:[address] Low Dose Thorax w/o LUIS RADHAROBERTO S Cont CPT code 06347 Reason For Exam (CT Low Dose Thorax w/o Cont) follow up lung nodules Report CT CHEST SCREENING WITHOUT CONTRAST CLINICAL INDICATION: Nodule. Low-dose axial CT images of the thorax from the lung apices through the bases were obtained. Coronal and sagittal reformatted images were also made available for interpretation. COMPARISON: February 10. FINDINGS: Pulmonary nodules: *All nodule measurements are mean axial diameter and saved on castillo images* Stable 4 mm pleural-based right lower lobe nodule (image 226 series 6). Stable 3 mm pleural-based right lower lobe nodule (image 232 series 6). No new nodule identified. Lungs: The lungs are clear with no acute opacification or consolidation. The tracheobronchial tree remains patent. Mediastinum: Normal heart size with no pericardial effusion. Aorta and pulmonary arteries normal in caliber. No enlarged mediastinal, hilar, or axillary lymph nodes. Thyroid and Esophagus: Normal. Upper Abdomen: No acute process identified in the upper abdomen. Soft tissues and Osseous structures: Multilevel degenerative changes. No suspicious osseous lesions. IMPRESSION: 1. No new lung nodules identified. 2. No acute pulmonary process. 3. Normal heart. ASSESSMENT CATEGORY: Lung-RADS Assessment Category 2 - Benign appearance or behavior. Recommend continued annual low-dose screening CT in 12 months. Computed Tomography Report Lung-RADS Version 1.1 Assessment Categories - for Screening CT Chest Only. Release date: October 20, 2018 Category 1 - Negative - Continue annual screening with low-dose CT No nodules Nodules with benign characteristics (complete, central, popcorn Ca++) or fat Category 2 - Benign appearance or behavior - Continue annual screening with low-dose CT Perifissural nodule(s) < 10 mm (see note 11 below) Solid nodule(s): < 6 mm or new < 4 mm Part solid nodule(s): < 6 mm total diameter on baseline screening Nonsolid nodule(s) (GGN): < 30 mm OR >/= 30 mm and unchanged or slowly growing Category 3 or 4 nodules unchanged for >/= 3 months Category 3 - Probably benign finding(s) - 6 month follow up with low-dose CT Solid nodule(s): 6 to < 8 mm at baseline OR new 4 mm to < 6 mm Part solid nodule(s) >/= 6 mm total diameter with solid component < 6 mm OR new < 6 mm total diameter Nonsolid nodule(s) (GGN) >/= [address] or new Category 4A - Suspicious - 3 month low-dose CT follow up or PET/CT when >/= 8 mm solid component Solid nodule(s): 8 to < 15 mm at baseline OR growing < 8 mm OR new 6 to <8 mm Part solid nodule(s): >/= 6 mm with solid component >/= 6 mm to < 8 mm OR with a new or growing < 4 mm solid component Any endobronchial nodule Category 4B - Very Suspicious - chest CT with or without contrast, PET/CT and/or tissue sampling depending on the *probability of malignancy and comorbidities. PET/CT may be used when there is a >/= 8 mm solid component. For new large nodules that develop on an annual repeat screening CT, a [address] may be recommended to address potentially inflammatory or infections conditions. Solid nodule(s): >/= 15 mm OR new or growing, and >/= 8 mm Part solid nodule(s) with: a solid component >/= 8 mm OR a new or growing >/= 4 mm solid component Category 4X - Very Suspicious - (same work up as Category 4B) Category 3 or 4 nodules with additional features or imaging findings that increases the suspicion of malignancy - spiculation, rapid growth or associated lymph node enlargement Modifier to add to Category 0-4: Category S - Clinically or potentially significant non lung cancer related findings IMPORTANT NOTES FOR USE: 1. Negative screen: does not mean that an individual does not have lung cancer. 2. Size: to calculate nodule mean diameter, measure both the long and short axis to one decimal point and report mean nodule diameter to one decimal point. 3. Size Thresholds: apply to nodules at first detection, and that grow and reach a higher size category 4. Growth: an increase in size of > 1.5 mm 5. Exam category: each exam should be coded 0-4 based on the nodule(s) with the highest degree of suspicion 6. Exam Modifiers: S modifier may be added to the 0-4 category 7. Lung cancer diagnosis: Once a patient is diagnosed with lung cancer, further management (including additional imaging such as PET/CT) may be performed for purposes of lung cancer staging; this is no longer screening 8. Practice audit definitions: a negative screen is defined as categories 1 and Computed Tomography Report 2; a positive screen is defined as categories 3 and 4 9. Category 4B Management: this is predicated on the probability of malignancy based on patient (more content not included)... Normal [facility] LABORATORYOrdered By: Sisi Valdez on 11-26-2021 Free T4 [Mass/Vol] 0.90 ng/dL Invalid Interpretation Code 0.76 - 1.46 ng/dL AO ADM SS TSH Qn 1.14 m[IU]/L Invalid Interpretation Code 0.36 - 3.74 mcIU/mL AO ADM SS HCG,Urine Qualon 11-06-2021 Beta HCG ( test) Ql (U) Negative Normal Negative [facility] Comment on above: Result Comment: Panfilo longoria note: Very dilute urine specimens, as indicated by a low specific gravity, may not contain territory sales representative levels of hCG. If is still suspected, a first morning urine specimen should be collected 48 hours later and tested. is the most common reason for HCG in urine, although choriocarcinoma, hydatidiform mole, and certain nontropho- blastic malignancies also result in detectable urinary HCG levels. Sensitivity = 20mIU/mL. Performed By: #### H CGUR #### [address] [place] [address] OPERATIVE REPORTon Ordered by an unspecified provider. [facility] , urine LABOrdered By: Acacia Mi on 11-06-2021 Beta HCG ( test) Ql (U) Negative Negative NA [facility] Comment on above: Please note: Very di lute urine specimens, as indicated by a low specific gravity, may not contain territory sales representative levels of hCG. If is still suspected, a first morning urine specimen should be collected 48 hours later and tested. is the most common reason for HCG in urine, although choriocarcinoma, hydatidiform mole, and certain nontropho- blastic malignancies also result in detectable urinary HCG levels. Sensitivity = 20mIU/mL. [facility] , urine LABon 11-06 Test Performed by [facility], [address] , [place], [place] [address] [facility] Surgical Pathologyon 022 Surgical Pathology [id number] [facility] PATHOLOGY AND LABORATORY MEDICINE [address] [place] [address] Fax - FINAL SURGICAL PATHOLOGY REPORT NAME: ROBERTO NAVA : 1980 41 Y F BILLING NO.: [id number] LOCATION: [facility] 06 PROCEDURE 11/06/2021 DATE: SURGEON: RADHA THOMPSON DO RECEIVED 11/06/2021 DATE: ATTENDING: RADHA THOMPSON DO REPORT DATE: 11/11/2021 COPIES TO: DIAGNOSIS: A. NASAL BONE AND CARTILAGE, CURETTINGS - UNREMARKABLE OSTEOCARTILAGINOUS TISSUE (GROSS DIAGNOSIS ONLY) B. PARTIAL INFERIOR BILATERAL TURBINATES, CURETTINGS - BENIGN CHRONICALLY INFLAMED SINONASAL EPITHELIUM AND UNREMARKABLE MINUTE FRAGMENT OF BONE C. LEFT RODRI BULLOSA, CURETTINGS - BENIGN SINONASAL EPITHELIUM AND UNREMARKABLE BONE JAW/JAW Signature> ALEE RIVERO M.D. CLINICAL INFORMATION: Deviated nasal septum, hypertrophy of nasal turbinates SPECIMEN: (A) NASAL SEPTAL BONE AND CARTILAGE (B) NASAL TURBINATES (C) NASAL SINUSES GROSS DESCRIPTION: A. Received in formalin labeled nasal bone and cartilage are multiple fragments of bony and cartilaginous tissue measuring in aggregate 3.5 x 3 x 0.3 cm. No sections taken, diagnosis nasal bone and cartilage. B. Received in formalin labeled partial inferior bilateral turbinates is a cloth sack-like collection device containing multiple fragments of perkins soft tissue aggregating to 0.6 x 0.6 x 0.2 cm. Submitted in one cassette. C. Received in formalin labeled left rodri bullosa are two irregularly-shaped fragments of pink-perkins soft and firm tissue each measuring approximately 0.7 x 0.6 x 0.3 cm. Submitted for decalcification prior to processing in one cassette. [id number]/[id number] Disclaimer: The following statement applies to all immunohistochemistry, in situ hybridization, molecular studies, and immunofluorescence testing. The use of one or more reagents in the above tests is regulated as an analyte specific reagent (ASR). These tests were developed and their performance characteristics determined by the clinical laboratories of [facility]. They have not been cleared by the US Food and Drug Administration (FDA). The FDA has determined that such clearance or approval is not necessary. All the above immunostains were performed on paraffin embedded tissue. Appropriate positive and negative controls (where applicable) were run in parallel with the patient's specimen; these controls showed expected staining pattern, with acceptable intensity of staining. Immunohistochemical assays have not been validated on decalcified tissues. Results should be interpreted with caution given the raised possibility of false negativity on decalcified specimens. Case reviewed at [address] [address]. DEPARTMENT OF PATHOLOGY AND LABORATORY MEDICINE [place], [place] [address] [email or web address] Normal [facility] Laboratory - Chemistry and C hemistry - challengeon 09-16-2021 T4 [Mass/Vol] 12.1 ug/dL 4.8-13.9 [facility] Work Phone: No Panel Informationon 09-16 Endomysial IgA Antibody Negative Negative [facility] Work Phone: Thyroid Stimulating Hormone (TSH) 1.22 uIU/mL 0.358-3.74 [facility] Work Phone: Serum or plasma C reactive p rotein measurement (mass/volume)on 09-16-2021 CRP [Mass/Vol] 4.87 mg/L 0.0-3.0 [facility] Work Phone: Comment on above: C-Reactive Protein ( CRP) provides useful information for thediagnosis, therapy and monitoring of inflammatory processesand associated diseases. For the evaluation of Relative Riskfor Cardiovascular Disease, a High Sensitivity CRP (HSCRP)should be ordered. Serum or plasma IgA measurem ent (mass/volume)on 09-16-2021 IgA [Mass/Vol] 189 mg/dL [facility] Work Phone: Comment on above: Performed at: [address] [id number] Director: Hansel Tiwari PhD, Phone: [phone] Serum tissue transglutaminas e IgA antibody assay (units/volume)on 09-16-2021 tTG IgA Qn (S) <2 U/mL [facility] Work Phone: Comment on above: Negative 0 - 3 Weak Positive 4 - 10 Positive >10 Tissue Transglutaminase (tTG) has been identified as the endomysial antigen. Studies have demonstr- ated that endomysial IgA antibodies have over 99% specificity for gluten sensitive enteropathy. LABORATORYOrdered By: Wilson Madrid on 09-08-2021 Glucose [Mass/Vol] 62 mg/dL Invalid Interpretation Code 70 - 145 mg/dL AO ADM SS Glucose [Mass/Vol] 100 mg/dL Invalid Interpretation Code 70 - 165 mg/dL AO Chemistry S Glucose [Mass/Vol] 151 mg/dL Invalid Interpretation Code 180 - 240 mg/dL AO Chemistry S Glucose [Mass/Vol] 93 mg/dL Invalid Interpretation Code 83 - 110 mg/dL AO Chemistry S Glucose [Mass/Vol] 78 mg/dL Invalid Interpretation Code AO ADM SS Vit. D 25-Hydroxy 44.2 ng/mL Invalid Interpretation Code AO ADM SS LABORATORYOrdered By: Sisi Valedz on 09-08-2021 Glucose [Mass/Vol] 154 mg/dL Invalid Interpretation Code 120 - 190 mg/dL AO ADM SS Cholesterol [Mass/Vol] 174 mg/dL Invalid Interpretation Code 0 - 200 mg/dL AO ADM SS Cholesterol in HDL [Mass/Vol] 64 mg/dL Invalid Interpretation Code 40 - 60 mg/dL AO ADM SS Cholesterol in LDL [Mass/Vol] 71 mg/dL Invalid Interpretation Code 0 - 130 mg/dL AO ADM SS Triglyceride [Mass/Vol] 194 mg/dL Invalid Interpretation Code 0 - 150 mg/dL AO ADM SS LABORATORYOrdered By: SYSTEM SYSTEM on 09-08-2021 Cobalamin (Vitamin B12) [Mass/Vol] 328 pg/mL Invalid Interpretation Code 211 - 911 pg/mL AH ADM SS CT Maxillofacial w/o Contras ton 07-21-2021 CT Maxillofacial w/o Contrast Patient Name: ROBERTO NAVA Computed Tomography ACCESSION EXAM DATE/TIME PROCEDURE ORDERING PROVIDER [id number] 07/21/2021 08:[address] Maxillofacial w/o SEGUNDO, RADHA S Contrast CPT code 09895 Reason For Exam (CT Maxillofacial w/o Contrast) nasal congestion Report CT SINUSES: INDICATION: Nasal Congestion. COMPARISON: None. Coronal and axial scans of the paranasal sinuses were performed. The frontal, ethmoid, and sphenoid sinus air-cells are clear, with no significant mucosal thickening or fluid levels. The ostiomeatal complexes are within normal limits. There is mild rightward nasal septal deviation with a small spur. There is mild mucosal congestion over the nasal septum and turbinates. IMPRESSION: There is no evidence of acute sinusitis. Nasal septal deviation and mucosal thickening in the nasal cavity. Report Dictated on Final Dictating Physician: DO MCNEAL ALFRED Signed Date and Time: 07/21/2021 9:32 am Signed by: DO MCNEAL ALFRED Transcribed Date and Time: 07/21/2021 9:33 [facility] CT Sinus WO Contrast Limited on 07-21-2021 Patient Name: ROBERTO NAVA Computed Tomography ACCESSION EXAM DATE/TIME PROCEDURE ORDERING PROVIDER [id number] 07/21/2021 08:[address] Maxillofacial w/o SEGUNDO, RADHA S Contrast CPT code 34669 Reason For Exam (CT Maxillofacial w/o Contrast) nasal congestion Report CT SINUSES: INDICATION: Nasal Congestion. COMPARISON: None. Coronal and axial scans of the paranasal sinuses were performed. The frontal, ethmoid, and sphenoid sinus air-cells are clear, with no significant mucosal thickening or fluid levels. The ostiomeatal complexes are within normal limits. There is mild rightward nasal septal deviation with a small spur. There is mild mucosal congestion over the nasal septum and turbinates. IMPRESSION: There is no evidence of acute sinusitis. Nasal septal deviation and mucosal thickening in the nasal cavity. Report Dictated on --- Final --- Dictating Physician: DO MCNEAL ALFRED Signed Date and Time: 07/21/2021 9:32 am Signed by: DO MCNEAL ALFRED Transcribed Date and Time: 07/21/2021 9:33 [facility] Kosta Mcneal DO - 07/21/2021 Patient Name: ROBERTO NAVA Computed Tomography ACCESSION EXAM DATE/TIME PROCEDURE ORDERING PROVIDER [id number] 07/21/2021 08:[address] Maxillofacial w/o SEGUNDORADHA EVANGELISTA S Contrast CPT code 81154 Reason For Exam (CT Maxillofacial w/o Contrast) nasal congestion Report CT SINUSES: INDICATION: Nasal Congestion. COMPARISON: None. Coronal and axial scans of the paranasal sinuses were performed. The frontal, ethmoid, and sphenoid sinus air-cells are clear, with no significant mucosal thickening or fluid levels. The ostiomeatal complexes are within normal limits. There is mild rightward nasal septal deviation with a small spur. There is mild mucosal congestion over the nasal septum and turbinates. IMPRESSION: There is no evidence of acute sinusitis. Nasal septal deviation and mucosal thickening in the nasal cavity. Report Dictated on --- Final --- Dictating Physician: DO MCNEAL ALFRED Signed Date and Time: 07/21/2021 9:32 am Signed by: DO MCNEAL ALFRED Transcribed Date and Time: 07/21/2021 9:33 [facility] Work Phone: Radiology Study observation (narrative) [facility] Work Phone: CT Sinus WO Contrast Limited Ordered By: Kosta Mcneal on 07-21-2021 [facility] Work Phone: LABORATORYOrdered By: Rosa Bower on 04-22-2021 Beta HCG ( test) Ql (U) Negative (04/22/21 9:43 AM) [facility] Work Phone: LABORATORYOrdered By: Ashlee Ruelas on 04-20-2021 Albumin BCP dye [Mass/Vol] 3.5 G/dL Invalid Interpretation Code 3.5 - 5.0 G/dL AO ADM SS Albumin/Globulin [Mass ratio] 0.9 {ratio} Invalid Interpretation Code 1.1 - 2.5 ratio AO ADM SS ALP [Catalytic activity/Vol] 46 U/L Invalid Interpretation Code 40 - 135 U/L AO ADM SS ALT With P-5'-P [Catalytic activity/Vol] 18 U/L Invalid Interpretation Code 14 - 59 U/L AO ADM SS Appearance (U) Slightly Cloudy *ABN* (04/20/21 11:01 AM) Invalid Interpretation Code Clear AO Auto Urine SS AST With P-5'-P [Catalytic activity/Vol] 11 U/L Invalid Interpretation Code 10 - 40 U/L AO ADM SS Bacteria LM.HPF (Urine sed) [#/Area] Trace /HPF Invalid Interpretation Code AO Auto Urine SS Basophil, Absolute 0.10 103/mcL Invalid Interpretation Code 0.00 - 0.19 10^3/mcL AO Auto Heme SS Basophils/100 WBC (Bld) 0.7 % Invalid Interpretation Code 0.0 - 2.5 % AO Auto Heme SS Bilirubin [Mass/Vol] 0.3 mg/dL Invalid Interpretation Code 0.2 - 1.0 mg/dL AO ADM SS Bilirubin Ql (U) Negative (04/20/21 11:01 AM) Invalid Interpretation Code Negative AO Auto Urine SS Calcium [Mass/Vol] 9.3 mg/dL Invalid Interpretation Code 8.4 - 10.2 mg/dL AO ADM SS Chloride [Moles/Vol] 103 mmol/L Invalid Interpretation Code 98 - 107 mmol/L AO ADM SS CO2 [Moles/Vol] 27 mmol/L Invalid Interpretation Code 22 - 29 mmol/L AO ADM SS Color (U) Yellow (04/20/21 11:01 AM) Invalid Interpretation Code AO Auto Urine SS Creatinine [Mass/Vol] 0.77 mg/dL Invalid Interpretation Code 0.55 - 1.02 mg/dL AO ADM SS Electrolyte Balance 9.0 mEq/L Invalid Interpretation Code AO ADM SS Eosinophil, Absolute 0.20 103/mcL Invalid Interpretation Code 0.00 - 0.40 10^3/mcL AO Auto Heme SS Eosinophils/100 WBC (Bld) 2.4 % Invalid Interpretation Code 0.0 - 7.0 % AO Auto Heme SS Erythrocyte distribution width (RBC) [Ratio] 12.3 % Invalid Interpretation Code 11.5 - 14.5 % AO Auto Heme SS Globulin 3.7 G/dL Invalid Interpretation Code AO ADM SS Glucose [Mass/Vol] 91 mg/dL Invalid Interpretation Code 70 - 105 mg/dL AO ADM SS Glucose Test strip (U) [Mass/Vol] Negative Invalid Interpretation Code Negativemg/dL AO Auto Urine SS HCG ( test) Ql Negative (04/20/21 11:01 AM) Invalid Interpretation Code AO Manual Urine SS Hematocrit (Bld) [Volume fraction] 39.6 % Invalid Interpretation Code 37.0 - 47.0 % AO Auto Heme SS Hemoglobin (Bld) [Mass/Vol] 13.3 G/dL Invalid Interpretation Code 12.0 - 16.0 G/dL AO Auto Heme SS Hemoglobin Auto test strip (U) [Mass/Vol] Small *ABN* (04/20/21 11:01 AM) Invalid Interpretation Code Negative AO Auto Urine SS Ketones Ql (U) Negative Invalid Interpretation Code Negativemg/dL AO Auto Urine SS Lipase [Catalytic activity/Vol] 84 U/L Invalid Interpretation Code 73 - 393 U/L AO ADM SS Lymphocyte, Absolute 2.60 103/mcL Invalid Interpretation Code 0.77 - 3.85 10^3/mcL AO Auto Heme SS Lymphocytes/100 WBC (Bld) 27.4 % Invalid Interpretation Code 10.0 - 50.0 % AO Auto Heme SS MCH (RBC) [Entitic mass] 29.9 pg Invalid Interpretation Code 27.0 - 31.2 pg AO Auto Heme SS MCHC (RBC) [Mass/Vol] 33.5 G/dL Invalid Interpretation Code 33.0 - 37.0 G/dL AO Auto Heme SS MCV (RBC) [Entitic vol] 89.2 fL Invalid Interpretation Code 80.0 - 94.0 fL AO Auto Heme SS Monocyte, Absolute 0.60 103/mcL Invalid Interpretation Code 0.15 - 1.00 10^3/mcL AO Auto Heme SS Monocytes/100 WBC (Bld) 6.4 % Invalid Interpretation Code 1.7 - 13.0 % AO Auto Heme SS Neutrophil, Absolute 6.00 103/mcL Invalid Interpretation Code 2.85 - 6.16 10^3/mcL AO Auto Heme SS Neutrophils/100 WBC (Bld) 63.1 % Invalid Interpretation Code 37.0 - 80.0 % AO Auto Heme SS Platelet mean volume (Bld) [Entitic vol] 7.2 fL Invalid Interpretation Code 7.4 - 10.4 fL AO Auto Heme SS Platelets (Bld) [#/Vol] 356 103/mcL Invalid Interpretation Code 130 - 400 10^3/mcL AO Auto Heme SS Potassium [Moles/Vol] 4.0 mmol/L Invalid Interpretation Code 3.5 - 5.1 mmol/L AO ADM SS test (u) int Not detected Invalid Interpretation Code AO Manual Urine SS Protein [Mass/Vol] 7.2 G/dL Invalid Interpretation Code 6.4 - 8.2 G/dL AO ADM SS RBC (Bld) [#/Vol] 4.44 106/mcL Invalid Interpretation Code 4.20 - 5.40 10^6/mcL AO Auto Heme SS Sodium [Moles/Vol] 139 mmol/L Invalid Interpretation Code 136 - 145 mmol/L AO ADM SS UA Leuk Est Negative (04/20/21 11:01 AM) Invalid Interpretation Code Negative AO Auto Urine SS UA Nitrite Negative (04/20/21 11:01 AM) Invalid Interpretation Code Negative AO Auto Urine SS UA pH 7.5 (04/20/21 11:01 AM) Invalid Interpretation Code 5.0 - 8.0 AO Auto Urine SS UA Protein Negative Invalid Interpretation Code Negativemg/dL AO Auto Urine SS UA RBC 0-5 /HPF Invalid Interpretation Code None Seen/HPF AO Auto Urine SS UA Spec Grav 1.020 (04/20/21 11:01 AM) Invalid Interpretation Code 1.015-1.025 AO Auto Urine SS UA Specimen Type Clean Catch (04/20/21 11:01 AM) Invalid Interpretation Code AO Auto Urine SS UA Squam Epithelial 5-10 /HPF Invalid Interpretation Code None Seen/HPF AO Auto Urine SS UA Urobilinogen 0.2 E.U./dL Invalid Interpretation Code 0.2-1.0E.U./d L AO Auto Urine SS Urea nitrogen [Mass/Vol] 9 mg/dL Invalid Interpretation Code 7 - 18 mg/dL AO ADM SS Urea nitrogen/Creatinine [Mass ratio] 12 ratio Invalid Interpretation Code 7 - 27 ratio AO ADM SS WBC (Bld) [#/Vol] 9.50 103/mcL Invalid Interpretation Code 4.60 - 10.80 10^3/mcL AO Auto Heme SS WBC LM.HPF (Urine sed) [#/Area] 0-5 /HPF Invalid Interpretation Code None Seen/HPF AO Auto Urine SS LABORATORYOrdered By: SYSTEM SYSTEM on 04-20-2021 GFR 101 ml/min/1.73sqm Invalid Interpretation Code AO Chemistry S GFR Non- 83 ml/min/1.73sqm Invalid Interpretation Code AO Chemistry S CT Low Dose Lung Diagnostico n 02-10-2021 CT Low Dose Lung Diagnostic Patient Name: ROBERTO NAVA Computed Tomography ACCESSION EXAM DATE/TIME PROCEDURE ORDERING PROVIDER [id number] 02/10/2021 09:[address] Low Dose Thorax w/o RADHA SMITH HOLLY S Cont CPT code 40434 Reason For Exam (CT Low Dose Thorax w/o Cont) follow up nodule Report CLINICAL HISTORY: History of tobacco use. This is a screening study for pulmonary nodules. COMPARISON: 10/14/2020 Technique: 1 mm low dose helical CT images were obtained of the chest without the use of intravenous contrast. Images were reformatted in coronal and sagittal projections. FINDINGS: Pulmonary nodules: *All nodule measurements are mean axial diameter and saved on castillo images* 4 mm pleural-based nodule posterior lateral right lower lobe (3:167) is UNCHANGED 3 mm pleural-based nodule posterior lateral right lower lobe (3:172) is UNCHANGED Lungs: The lungs are clear with no acute infiltrate or effusion. The tracheobronchial tree remains patent. Mediastinum: Normal heart size with no pericardial effusion. Aorta and pulmonary arteries normal in caliber. No enlarged mediastinal, hilar, or axillary lymph nodes. Thyroid and Esophagus: Normal. Upper Abdomen: Normal Soft tissues and Osseous structures: No suspicious osseous lesions. IMPRESSION: Multiple subcentimeter pleural-based pulmonary nodules measuring up to 4 mm. These are UNCHANGED compared to 10/14/2020. No new pulmonary nodules or masses. Computed Tomography Report Report Dictated on Final Dictated: 02/11/2021 2:49 pm Dictating Physician: MD SILVESTRE YUN ROBERT Signed Date and Time: 02/11/2021 2:55 pm Signed by: MD SILVESTRE YUN ROBERT Transcribed Date and Time: 02/11/2021 2:49 Normal [facility] CT CHEST WO CONTRASTOrdered By: Roberto Smith on 10-14-2020 Patient Name: ROBERTO NAVA Computed Tomography ACCESSION EXAM DATE/TIME PROCEDURE ORDERING PROVIDER [id number] 10/14/2020 08:[address] Thorax w/o Contrast RADHA SMITH HOLLY S CPT code 29871 Reason For Exam (CT Thorax w/o Contrast) rt sided rib pain Report CT of the chest without intravenous contrast, 10/14/2020. Reason for examination: Right chest wall pain. COMPARISON: Chest radiographs dated August 30, 2020. TECHNIQUE: 1 mm axial images were obtained through the chest. No intravenous contrast was administered. Coronal and sagittal reconstructions were created and reviewed. FINDINGS: The lungs are largely clear. There are a few punctate peripheral and pleural-based nodular densities which are nonspecific, but considered likely benign. These measure up to approximately 4 mm in maximum mentioned. There is no infiltrate or effusion. There is very mild scarring or atelectasis cardiac size is normal. The thoracic aorta is normal in caliber. No mediastinal or hilar lymphadenopathy is noted No axillary or supraclavicular lymphadenopathy is noted. No rib fracture is identified. No destructive osseous process is noted. There are relatively mild degenerative changes in the mid to lower thoracic spine. No inflammatory process or mass is noted in the chest wall. Limited imaging through the upper abdomen is unremarkable. IMPRESSION: No clear cause for the patient's right chest pain identified. Various findings as described in the body of the report which are of questionable clinical significance. Report Dictated on Workstation: [id number] --- Final --- Dictated: 10/14/2020 2:16 pm Dictating Physician: MD GRACIA JOE M Signed Date and Time: 10/14/2020 2:37 pm Signed by: MD GRACIA JOE M Transcribed Date and Time: 10/14/2020 2:16 [facility] Work Phone: [facility], [facility] Incoming Radiology Results From [facility] - 10/14/2020 2:39 PM EDT Patient Name: ROBERTO NAVA Computed Tomography ACCESSION EXAM DATE/TIME PROCEDURE ORDERING PROVIDER [id number] 10/14/2020 08:[address] Thorax w/o Contrast RADHA SMITH HOLLY S CPT code 37624 Reason For Exam (CT Thorax w/o Contrast) rt sided rib pain Report CT of the chest without intravenous contrast, 10/14/2020. Reason for examination: Right chest wall pain. COMPARISON: Chest radiographs dated August 30, 2020. TECHNIQUE: 1 mm axial images were obtained through the chest. No intravenous contrast was administered. Coronal and sagittal reconstructions were created and reviewed. FINDINGS: The lungs are largely clear. There are a few punctate peripheral and pleural-based nodular densities which are nonspecific, but considered likely benign. These measure up to approximately 4 mm in maximum mentioned. There is no infiltrate or effusion. There is very mild scarring or atelectasis cardiac size is normal. The thoracic aorta is normal in caliber. No mediastinal or hilar lymphadenopathy is noted No axillary or supraclavicular lymphadenopathy is noted. No rib fracture is identified. No destructive osseous process is noted. There are relatively mild degenerative changes in the mid to lower thoracic spine. No inflammatory process or mass is noted in the chest wall. Limited imaging through the upper abdomen is unremarkable. IMPRESSION: No clear cause for the patient's right chest pain identified. Various findings as described in the body of the report which are of questionable clinical significance. Report Dictated on Workstation: [id number] --- Final --- Dictated: 10/14/2020 2:16 pm Dictating Physician: MD GRACIA JOE M Signed Date and Time: 10/14/2020 2:37 pm Signed by: MD GRACIA JOE M Transcribed Date and Time: 10/14/2020 2:16 [facility] Work Phone: [facility] Work Phone: CT Chest w/o Contraston 09-28 CT Chest w/o Contrast Patient Name: ROBERTO NAVA [facility]#: [id number] Computed Tomography ACCESSION EXAM DATE/TIME PROCEDURE ORDERING PROVIDER [id number] 10/14/2020 08:[address] Thorax w/o Contrast RADHA SMITH HOLLY [place] CPT code 99610 Reason For Exam (CT Thorax w/o Contrast) rt sided rib pain Report CT of the chest without intravenous contrast, 10/14/2020. Reason for examination: Right chest wall pain. COMPARISON: Chest radiographs dated August 30, 2020. TECHNIQUE: 1 mm axial images were obtained through the chest. No intravenous contrast was administered. Coronal and sagittal reconstructions were created and reviewed. FINDINGS: The lungs are largely clear. There are a few punctate peripheral and pleural-based nodular densities which are nonspecific, but considered likely benign. These measure up to approximately 4 mm in maximum mentioned. There is no infiltrate or effusion. There is very mild scarring or atelectasis cardiac size is normal. The thoracic aorta is normal in caliber. No mediastinal or hilar lymphadenopathy is noted No axillary or supraclavicular lymphadenopathy is noted. No rib fracture is identified. No destructive osseous process is noted. There are relatively mild degenerative changes in the mid to lower thoracic spine. No inflammatory process or mass is noted in the chest wall. Limited imaging through the upper abdomen is unremarkable. IMPRESSION: No clear cause for the patient's right chest pain identified. Various findings as described in the body of the report which are of questionable clinical significance. Report Dictated on Workstation: [email or web address] Final Dictated: 10/14/2020 2:16 pm Dictating Physician: MD GRACIA JOE M Signed Date and Time: 10/14/2020 2:37 pm Signed by: MD GRACIA JOE M Transcribed Date and Time: 10/14/2020 2:16 Normal [facility] US NON OB TRANSVAGINALOrdere d By: Kayleen Albarran on 10-14-2020 Patient Name: ROBERTO NAVA Ultrasound ACCESSION EXAM DATE/TIME PROCEDURE ORDERING PROVIDER [id number] 10/14/2020 09:18 EDT US Transvaginal [id number] -KAYLEEN ALBARRAN CPT code 70536 Reason For Exam (US Transvaginal) R10.2 Report ULTRASOUND PELVIS: CLINICAL INDICATION: Pelvic pain COMPARISON: 06/11/2014 TECHNIQUE: Transvaginal evaluation of the pelvis including color flow and spectral Doppler imaging FINDINGS: Uterus: Orientation: Retroverted Size: 9.0 x 5.6 x 4.3 cm Endometrium: 6 mm Mass: none Cervix: normal Right Ovary: Size: 3.4 x 2.2 x 1.4 cm Mass: none Cyst: none Color flow/Doppler waveform: normal Left Ovary: Size: 3.1 x 2.5 x 1.7 cm Mass: none Cyst: Multiple follicles measuring up to 1.5 cm Color flow/Doppler waveform: normal Cul-de-sac: There is a small amount of free pelvic fluid IMPRESSION: 1. Small amount of nonspecific free pelvic fluid. Otherwise, unremarkable exam. Ultrasound Report Report Dictated on --- Final --- Dictated: 10/14/2020 10:30 am Dictating Physician: MD ALMEIDA NICHOLAS Signed Date and Time: 10/14/2020 10:32 am Signed by: MD ALMEIDA NICHOLAS Transcribed Date and Time: 10/14/2020 10:30 [facility] Work Phone: [facility], [facility] Incoming Radiology Results From [facility] - 10/14/2020 10:33 AM EDT Patient Name: ROBERTO NAVA Ultrasound ACCESSION EXAM DATE/TIME PROCEDURE ORDERING PROVIDER [id number] 10/14/2020 09:18 EDT US Transvaginal [id number] KAYLEEN ROCA CPT code 97349 Reason For Exam (US Transvaginal) R10.2 Report ULTRASOUND PELVIS: CLINICAL INDICATION: Pelvic pain COMPARISON: 06/11/2014 TECHNIQUE: Transvaginal evaluation of the pelvis including color flow and spectral Doppler imaging FINDINGS: Uterus: Orientation: Retroverted Size: 9.0 x 5.6 x 4.3 cm Endometrium: 6 mm Mass: none Cervix: normal Right Ovary: Size: 3.4 x 2.2 x 1.4 cm Mass: none Cyst: none Color flow/Doppler waveform: normal Left Ovary: Size: 3.1 x 2.5 x 1.7 cm Mass: none Cyst: Multiple follicles measuring up to 1.5 cm Color flow/Doppler waveform: normal Cul-de-sac: There is a small amount of free pelvic fluid IMPRESSION: 1. Small amount of nonspecific free pelvic fluid. Otherwise, unremarkable exam. Ultrasound Report Report Dictated on --- Final --- Dictated: 10/14/2020 10:30 am Dictating Physician: MD ALMEIDA NICHOLAS Signed Date and Time: 10/14/2020 10:32 am Signed by: MD ALMEIDA NICHOLAS Transcribed Date and Time: 10/14/2020 10:30 [facility] Work Phone: [phone] [facility] Work Phone: US Transvaginalon 10-14-2020 US Transvaginal Patient Name: ROBERTO NAVA Ultrasound ACCESSION EXAM DATE/TIME PROCEDURE ORDERING PROVIDER [id number] 10/14/2020 09:18 EDT US Transvaginal [id number] -KAYLEEN ALBARRAN CPT code 76368 Reason For Exam (US Transvaginal) R10.2 Report ULTRASOUND PELVIS: CLINICAL INDICATION: Pelvic pain COMPARISON: 06/11/2014 TECHNIQUE: Transvaginal evaluation of the pelvis including color flow and spectral Doppler imaging FINDINGS: Uterus: Orientation: Retroverted Size: 9.0 x 5.6 x 4.3 cm Endometrium: 6 mm Mass: none Cervix: normal Right Ovary: Size: 3.4 x 2.2 x 1.4 cm Mass: none Cyst: none Color flow/Doppler waveform: normal Left Ovary: Size: 3.1 x 2.5 x 1.7 cm Mass: none Cyst: Multiple follicles measuring up to 1.5 cm Color flow/Doppler waveform: normal Cul-de-sac: There is a small amount of free pelvic fluid IMPRESSION: 1. Small amount of nonspecific free pelvic fluid. Otherwise, unremarkable exam. Ultrasound Report Report Dictated on Final Dictated: 10/14/2020 10:30 am Dictating Physician: MD ALMEIDA NICHOLAS Signed Date and Time: 10/14/2020 10:32 am Signed by: MD ALMEIDA NICHOLAS Transcribed Date and Time: 10/14/2020 10:30 Normal [facility] Basic Metabolic PanelOrdered By: Roberto Smith on 10-10-2020 Anion gap [Moles/Vol] 8 mmol/L 3 - 13 mmol/L [facility] Work Phone: Calcium [Mass/Vol] 8.7 mg/dL 8.4 - 10. 4 mg/dL [facility] Work Phone: Chloride [Moles/Vol] 107 mmol/L 98 - 10 7 mmol/L [facility] Work Phone: CO2 [Moles/Vol] 24 mmol/L 22 - 30 mmol/L [facility] Work Phone: Creatinine [Mass/Vol] 0.7 mg/dL 0.52 - 1.25 mg/dL [facility] Work Phone: EGFR IF NonAfrican [place]ian >90.0 >60 mL/min [facility] Work Phone: Comment on above: KDIGO guidelines pro vide the following GFR categories: Stage GFR(ml/min/1.73 m2) Terms G1 >=90 Normal or high G2 60-89 Mildly decreased* G3a 45-59 Mildly to moderately decreased G3b 30-44 Moderately to severely decreased G4 15-29 Severely decreased G5 <15 Kidney failure *Relative to young adult level. In the absence of evidence of kidney damage, neither GFR category G1 nor G2 fulfill the criteria for CKD. The CKD-EPI equation is validated in individuals 18 years of age and older. Currently the best equation for estimating glomerular filtration rate (GFR) from serum creatinine in children is the Bedside Vega equation. It is less accurate in patients with extremes of muscle mass, restriction of dietary protein, ingestion of creatine, extra-renal metabolism of creatinine, or treatment with medications that affect renal tubular creatinine secretion. GFR/1.73 sq M.predicted among blacks MDRD (S/P/Bld) [Vol rate/Area] mL/min/{1.73_m2} >60 mL/min [facility] Work Phone: Glucose [Mass/Vol] 88 mg/dL 70 - 100 mg/dL [facility] Work Phone: Potassium [Moles/Vol] 3.9 mmol/L 3.5 - 5.1 mmol/L [facility] Work Phone: Sodium [Moles/Vol] 139 mmol/L 135 - 145 mmol/L [facility] Work Phone: Urea nitrogen (BldV) [Mass/Vol] 12 mg/dL 7 - 20 mg/dL [facility] Work Phone: [phone] Performed by [facility] [address] , [place], [place] [address] [facility] Work Phone: [phone] XR CHEST (2 VW)on 08-30-2020 Patient Name: ROBERTO NAVA Diagnostic Radiology ACCESSION EXAM DATE/TIME PROCEDURE ORDERING PROVIDER [id number] 08/30/2020 13:11 EDT CR Chest PA & LAT RADHA SMITH HOLLY S CPT code 76798 Reason For Exam (CR Chest PA & LAT) right sided pain Report CHEST: CLINICAL INDICATION: Right-sided pain TECHNIQUE: PA and Lateral COMPARISON: 03/16/2019 FINDINGS: The heart and mediastinum are normal. The lungs are clear. There is no evidence for pleural effusion. The osseous structures are unremarkable. IMPRESSION: No acute abnormality. Report Dictated on --- Final --- Dictating Physician: DO MÉNDEZ RACHEL Signed Date and Time: 08/30/2020 3:13 pm Signed by: DO MÉNDEZ RACHEL Transcribed Date and Time: 08/30/2020 3:14 [facility] Work Phone: [facility] Results From [facility] - 08/30/2020 3:14 PM EDT Patient Name: ROBERTO NAVA Diagnostic Radiology ACCESSION EXAM DATE/TIME PROCEDURE ORDERING PROVIDER [id number] 08/30/2020 13:11 EDT CR Chest PA & LAT RADHA SMITH HOLLY S CPT code 95878 Reason For Exam (CR Chest PA & LAT) right sided pain Report CHEST: CLINICAL INDICATION: Right-sided pain TECHNIQUE: PA and Lateral COMPARISON: 03/16/2019 FINDINGS: The heart and mediastinum are normal. The lungs are clear. There is no evidence for pleural effusion. The osseous structures are unremarkable. IMPRESSION: No acute abnormality. Report Dictated on --- Final --- Dictating Physician: DO MÉNDEZ RACHEL Signed Date and Time: 08/30/2020 3:13 pm Signed by: DO MÉNDEZ RACHEL Transcribed Date and Time: 08/30/2020 3:14 [facility] Work Phone: US BREAST LIMITED LEFTon Patient Name: ROBERTO NAVA ---Ultrasound--- Exam Date/Time 07/17/2019 10:36:30 EST Exam US Breast Limited Left Ordering Physician RADHA SMITH HOLLY S Accession Number [id number] CPT4 Codes 72818 () Reason For Exam follow- up Report REASON FOR EXAM: follow-up at short interval from prior study. PROCEDURE: US BREAST LIMITED LEFT: JULY 17, 2019 - Technologist: Theresa Martines RDMS . FINDINGS: Sonographic images were obtained of the left breast the 4:00 position 8 cm from the nipple in the area of the procedure described finding. The previously described finding has since resolved. There are no new suspicious findings seen. IMPRESSION: Interval resolution of the previously described finding. No further follow- up is needed. Routine screening is recommended at age 40. ASSESSMENT: Category 1 Negative RECOMMENDATION: Routine screening mammogram of both breasts at age 41. . Report Dictated on --- Final --- Signed Date and Time: 07/17/2019 10:38 am Signed by: MD LILIBETH, RAFA IRAHETA Work Phone: [facility], [facility] Incoming Radiology Results From [facility] - 07/17/2019 11:35 AM EST Patient Name: ROBERTO NAVA ---Ultrasound--- Exam Date/Time 07/17/2019 10:36:30 EST Exam US Breast Limited Left Ordering Physician RADHA SMITH HOLLY S Accession Number [id number] CPT4 Codes 45815 () Reason For Exam follow- up Report REASON FOR EXAM: follow-up at short interval from prior study. PROCEDURE: US BREAST LIMITED LEFT: JULY 17, 2019 - Technologist: Theresa Martines RDMS . FINDINGS: Sonographic images were obtained of the left breast the 4:00 position 8 cm from the nipple in the area of the procedure described finding. The previously described finding has since resolved. There are no new suspicious findings seen. IMPRESSION: Interval resolution of the previously described finding. No further follow- up is needed. Routine screening is recommended at age 40. ASSESSMENT: Category 1 Negative RECOMMENDATION: Routine screening mammogram of both breasts at age 41. . Report Dictated on --- Final --- Signed Date and Time: 07/17/2019 10:38 am Signed by: MD LILIBETH, RAFA IRAHETA Work Phone: Vital Signs Date Time Vital Sign Value Performing Clinician Facility 01-15-2025 11:32-0400 Body temperature 98.2 [degF] Adrian Jesus MD Work Phone: [facility] 01-15-2025 11:32-0400 Body weight 106.8 kg Adrian Jesus MD Work Phone: [facility] 01-15-2025 11:32-0400 Diastolic blood pressure 68 mm[Hg] Adrian Jesus MD Work Phone: [facility] 01-15-2025 11:32-0400 Heart rate 102 /min Adrian Jesus MD Work Phone: [facility] 01-15-2025 11:32-0400 Respiratory rate 16 /min Adrian Jesus MD Work Phone: [facility] 01-15-2025 11:32-0400 SaO2% (BldA) [Mass fraction] 96 % Adrian Jesus MD Work Phone: [facility] 01-15-2025 11:32-0400 Systolic blood pressure 122 mm[Hg] Adrian Jesus MD Work Phone: [facility] 12-23-2023 08:40-0400 Body temperature 98.4 [degF] Adrian Jesus MD Work Phone: [facility] 12-23-2023 08:40-0400 Body weight 102.1 kg Adrian Jesus MD Work Phone: [facility] 12-23-2023 08:40-0400 Diastolic blood pressure 90 mm[Hg] Adrian Jesus MD Work Phone: [facility] 12-23-2023 08:40-0400 Heart rate 105 /min Adrian Jesus MD Work Phone: [facility] 12-23-2023 08:40-0400 Respiratory rate 21 /min Adrian Jesus MD Work Phone: [facility] 12-23-2023 08:40-0400 SaO2% (BldA) [Mass fraction] 97 % Adrian Jesus MD Work Phone: [facility] 12-23-2023 08:40-0400 Systolic blood pressure 130 mm[Hg] Adrian Jesus MD Work Phone: [facility] 06-18-2023 16:08-0500 Body height 167.64 cm ADDICTION COUNSELOR-C Silas Seffens ADDICTION COUNSELOR Work Phone: [facility] 06-18-2023 16:08-0500 Body mass index (BMI) [Ratio] 35.4 kg/m2 ADDICTION COUNSELOR-C Silas Seffens ADDICTION COUNSELOR Work Phone: [facility] 06-18-2023 16:08-0500 Body weight 99.56 kg ADDICTION COUNSELOR-C Silas Seffens ADDICTION COUNSELOR Work Phone: [facility] 06-18-2023 16:08-0500 Diastolic blood pressure 87 mm[Hg] ADDICTION COUNSELOR-C Silas Seffens ADDICTION COUNSELOR Work Phone: [facility] 06-18-2023 16:08-0500 Systolic blood pressure 121 mm[Hg] ADDICTION COUNSELOR-C Silas Seffens ADDICTION COUNSELOR Work Phone: [facility] 03-04-2023 15:11-0400 Body height 167.64 cm ADDICTION COUNSELOR-C Silas Seffens ADDICTION COUNSELOR Work Phone: [facility] 03-04-2023 15:08-0400 Body mass index (BMI) [Ratio] 35.8 kg/m2 ADDICTION COUNSELOR-C Silas Seffens ADDICTION COUNSELOR Work Phone: [facility] 03-04-2023 15:08-0400 Body weight 100.69 kg ADDICTION COUNSELOR-C Silas Seffens ADDICTION COUNSELOR Work Phone: [facility] 03-04-2023 15:08-0400 Diastolic blood pressure 86 mm[Hg] ADDICTION COUNSELOR-C Silas Longoriareji ADDICTION COUNSELOR Work Phone: [facility] 03-04-2023 15:08-0400 Systolic blood pressure 123 mm[Hg] ADDICTION COUNSELOR-C Silas Jason ADDICTION COUNSELOR Work Phone: [facility] 04-26-2022 00:39-0500 Body temperature 98.06 [degF] AZRA DIAZ MD [facility] 04-26-2022 00:39-0500 Diastolic Blood Pressure Non-Invasive 77 1 AZRA DIAZ MD [facility] 04-26-2022 00:39-0500 Heart rate 96 /min AZRA DIAZ MD [facility] 04-26-2022 00:39-0500 Respiratory rate 18 /min AZRA DIAZ MD [facility] 04-26-2022 00:39-0500 Systolic Blood Pressure Non-Invasive 129 1 AZRA DIAZ MD [facility] 11-06-2021 11:45-0400 Diastolic blood pressure 74 mm[Hg] Radha OOHLALA Mobile Work Phone: [facility] 11-06-2021 11:45-0400 Heart rate 84 /min [employer] Work Phone: [facility] 11-06-2021 11:45-0400 Respiratory rate 18 /min [employer] Work Phone: [facility] 11-06-2021 11:45-0400 Systolic blood pressure 132 mm[Hg] [employer] Work Phone: [facility] 11-06-2021 11:30-0400 SaO2% (BldA) [Mass fraction] 96 % Radha Thompson DO Work Phone: [facility] 11-06-2021 10:57-0400 Body temperature 98.71 [degF] Radha Thompson DO Work Phone: [facility] 04-22-2021 20:08-0500 Body temperature 96.98 [degF] RADHA CHOWDHURY MD [facility] 04-22-2021 20:08-0500 Diastolic blood pressure 71 mm[Hg] RADHA CHOWDHURY MD [facility] 04-22-2021 20:08-0500 Heart rate 88 /min RADHA CHOWDHURY MD [facility] 04-22-2021 20:08-0500 Respiratory rate 16 /min RADHA CHOWDHURY MD [facility] 04-22-2021 20:08-0500 Systolic blood pressure 117 mm[Hg] RADHA CHOWDHURY MD [facility] 04-22-2021 19:05-0500 Body temperature 97.52 [degF] RADHA CHOWDHURY MD [facility] 04-22-2021 19:05-0500 Diastolic blood pressure 64 mm[Hg] RADHA CHOWDHURY MD [facility] 04-22-2021 19:05-0500 Heart rate 86 /min RADHA CHOWDHURY MD [facility] 04-22-2021 19:05-0500 Mean blood pressure 77 mm[Hg] RADHA CHOWDHURY MD [facility] 04-22-2021 19:05-0500 Reason For Taking VItal Signs RADHA CHOWDHURY MD [facility] 04-22-2021 19:05-0500 Respiratory rate 16 /min RADHA CHOWDHURY MD [facility] 04-22-2021 19:05-0500 Systolic blood pressure 104 mm[Hg] RADHA CHOWDHURY MD [facility] 04-22-2021 18:51-0500 Body temperature 97.16 [degF] RADHA CHOWDHURY MD [facility] 04-22-2021 18:51-0500 Diastolic Blood Pressure NBP 65 1 RADHA CHOWDHURY MD [facility] 04-22-2021 18:51-0500 Heart rate 81 /min RADHA CHOWDHURY MD [facility] 04-22-2021 18:51-0500 Mean blood pressure 77 mm[Hg] RADHA CHOWDHURY MD [facility] 04-22-2021 18:51-0500 Respiratory rate 16 /min RADHA CHOWDHURY MD [facility] 04-22-2021 18:51-0500 Systolic Blood Pressure NBP 122 1 RADHA CHOWDHURY MD [facility] 04-22-2021 18:38-0500 Diastolic Blood Pressure NBP 69 1 RADHA CHOWDHURY MD [facility] 04-22-2021 18:38-0500 Heart rate 77 /min RADHA CHOWDHURY MD [facility] 04-22-2021 18:38-0500 Mean blood pressure 81 mm[Hg] RADHA CHOWDHURY MD [facility] 04-22-2021 18:38-0500 Systolic Blood Pressure NBP 125 1 RADHA CHOWDHURY MD [facility] 04-22-2021 18:23-0500 Diastolic Blood Pressure NBP 66 1 RADHA CHOWDHURY MD [facility] 04-22-2021 18:23-0500 Mean blood pressure 79 mm[Hg] RADHA CHOWDHURY MD [facility] 04-22-2021 18:23-0500 Systolic Blood Pressure NBP 116 1 RADHA CHOWDHURY MD [facility] 04-22-2021 17:55-0500 Body temperature 96.98 [degF] RADHA CHOWDHURY MD [facility] 04-22-2021 17:55-0500 Body temperature 99.19 [degF] RADHA CHOWDHURY MD [facility] 04-22-2021 17:50-0500 Body temperature 99.18 [degF] RADHA CHOWDHURY MD [facility] 04-22-2021 17:45-0500 Body temperature 99.14 [degF] RADHA CHOWDHURY MD [facility] 04-22-2021 09:43-0500 Body height 167.6 cm RADHA CHOWDHURY MD [facility] 04-22-2021 09:43-0500 Body weight 98.1 kg RADHA CHOWDHURY MD [facility] 04-22-2021 09:43-0500 Diastolic blood pressure 80 mm[Hg] RADHA CHOWDHURY MD [facility] 04-22-2021 09:43-0500 Heart rate 94 /min RADHA CHOWDHURY MD [facility] 04-22-2021 09:43-0500 Systolic blood pressure 117 mm[Hg] RADHA CHOWDHURY MD [facility] 04-20-2021 10:49-0500 Body temperature 98.42 [degF] EVENS VALENCIA MD [facility] 04-20-2021 10:49-0500 Diastolic blood pressure 84 mm[Hg] EVENS VALENCIA MD [facility] 04-20-2021 10:49-0500 Heart rate 88 /min EVENS VALENCIA MD [facility] 04-20-2021 10:49-0500 Respiratory rate 20 /min EVENS VALENCIA MD [facility] 04-20-2021 10:49-0500 Systolic blood pressure 128 mm[Hg] EVENS VALENCIA MD [facility] 03-16-2019 14:55-0400 Pulse (Heart Rate) 100 /min Lawrence OconnorStarShooter [facility] [place] 03-16-2019 14:55-0400 Pulse Oximetry 100 % Lawrence Solitario [facility] [place] 03-16-2019 13:42-0400 Body Temperature 98.49 [degF] Lawrence OrderMotionNangateimani[facility] [place] 03-16-2019 13:42-0400 BP Diastolic 77 mm[Hg] Lawrence [facility] 03-16-2019 13:42-0400 BP Systolic 121 mm[Hg] Lawrence [facility] 03-16-2019 13:42-0400 Respiratory Rate 16 /min [facility] [place] Encounters Encounter Date Encounter Type Care Provider Facility Start: 01-15-2025 End: 01-15-2025 Office outpatient visit 25 minutes Adrian Jesus MD Work Phone: [facility] Comment on above: Acute conjunctivitis of both eyes, unspecified acute conjunctivitis type (Primary Dx); Viral URI Start: 01-15-2025 End: 01-15-2025 ambulatory GIOVANNI MALDONADO IV Facility:[facility] Start: 10-21-2024 End: 10-21-2024 ambulatory GIOVANNI MALDONADO DO [facility] Start: 06-13-2024 End: 06-13-2024 ambulatory GIOVANNI MALDONADO DO Facility[facility] [place] Start: 06-13-2024 End: 06-13-2024 Patient encounter procedure GIOVANNI MALDONADO DO [facility] Start: 05-23-2024 End: 05-23-2024 ambulatory Giovanni Maldonado Facility:[facility] Start: 05-23-2024 End: 05-23-2024 ambulatory Flaquita Higuera Facility:[facility] Start: 04-26-2024 End: 04-26-2024 ambulatory Giovanni Maldonado Facility:[facility] Start: 04-26-2024 End: 04-26-2024 ambulatory Flaquita Kalen Facility:[facility] Start: 12-26-2023 End: 12-26-2023 Telemedicine consultation with patient Jaskaran Tyler APRN.RADHA Work Phone: Telemedicine Comment on above: Viral URI (Primary D x); Other conjunctivitis of both eyes Start: 12-23-2023 End: 12-23-2023 Office outpatient visit 25 minutes Adrian Jesus MD Work Phone: [facility] Comment on above: Acute conjunctivitis of left eye, unspecified acute conjunctivitis type (Primary Dx); URI, acute Start: 11-22-2023 End: 11-26-2023 ambulatory GIOVANNI MALDONADO Facility:B Start: 11-22-2023 End: 11-26-2023 Outreach Lab GIOVANNI MALDONADO DO [facility] Start: 06-18-2023 End: 06-18-2023 ambulatory ADDICTION COUNSELOR-C Silas Jason ADDICTION COUNSELOR Work Phone: [facility] Work Phone: Start: 06-18-2023 End: 06-18-2023 Patient encounter procedure ADDICTION COUNSELOR-C Silas Jason ADDICTION COUNSELOR Work Phone: [facility] Work Phone: Start: 06-07-2023 End: 06-07-2023 ambulatory ADDICTION COUNSELOR-C Silas Jason ADDICTION COUNSELOR Work Phone: [facility] Work Phone: Start: 06-07-2023 End: 06-07-2023 Patient encounter procedure ADDICTION COUNSELOR-C Silas Bimalns ADDICTION COUNSELOR Work Phone: [facility]-Laboratory Work Phone: Start: 06-01-2023 End: 06-01-2023 Patient encounter procedure ADDICTION COUNSELOR-C Silas Jason ADDICTION COUNSELOR Work Phone: [facility]-Ultrasound, [facility] Work Phone: Start: 05-20-2023 End: 05-24-2023 ambulatory [facility] ACUPRESSURE THERAPIST-SURVEILLANCE OBSERVER Facility:B Start: 05-20-2023 End: 05-24-2023 Outreach Lab [facility] ACUPRESSURE THERAPIST-SURVEILLANCE OBSERVER [facility] Start: 05-20-2023 End: 05-20-2023 ambulatory [facility] ACUPRESSURE THERAPIST-SURVEILLANCE OBSERVER Facility:B Start: 04-21-2023 End: 04-21-2023 ambulatory ADDICTION COUNSELOR-C Silas Gomez ADDICTION COUNSELOR Work Phone: [facility] Work Phone: Start: 04-21-2023 End: 04-21-2023 Patient encounter procedure ADDICTION COUNSELOR-C Silas Gomez ADDICTION COUNSELOR Work Phone: [facility]-Outpatient Pavilion Ultrasound Work Phone: Start: 03-04-2023 End: 03-04-2023 Patient encounter procedure ADDICTION COUNSELOR-C Silas Gomez ADDICTION COUNSELOR Work Phone: [facility]-Laboratory Work Phone: Start: 03-04-2023 End: 03-04-2023 Patient encounter procedure ADDICTION COUNSELOR-C Silas Bimalns ADDICTION COUNSELOR Work Phone: [facility] Work Phone: Start: 12-14-2022 End: 12-14-2022 ambulatory [facility] Work Phone: Start: 12-14-2022 End: 12-14-2022 Discharged Recurring [facility]-Speech Therapy Work Phone: Start: 10-12-2022 End: 10-12-2022 Patient encounter procedure SILAS JASON ACUPRESSURE THERAPIST-SURVEILLANCE OBSERVER [facility] Start: 04-26-2022 End: 04-26-2022 Emergency department patient visit AZRA DIAZ MD [facility] Start: 02-05-2022 End: 02-05-2022 Subsequent hospital visit by physician Roberto Smith ACUPRESSURE THERAPIST - SURVEILLANCE OBSERVER Work Phone: [facility] [address] Comment on above: Lung nodules Start: 11-26-2021 End: 11-26-2021 Patient encounter procedure SILAS GOMEZ ACUPRESSURE THERAPIST-SURVEILLANCE OBSERVER [facility] Start: 11-06-2021 End: 11-06-2021 Subsequent hospital visit by physician Radha Thompson DO Work Phone: [facility] Comment on above: Arrived Start: 09-16-2021 End: 09-16-2021 Patient encounter procedure [facility] Start: 09-08-2021 End: 09-08-2021 Patient encounter procedure TING JAVIER ACUPRESSURE THERAPIST-SURVEILLANCE OBSERVER [facility] Start: 07-21-2021 End: 07-21-2021 Subsequent hospital visit by physician Radha Thompson DO Work Phone: [facility] [place] Comment on above: Arrived Start: 06-20-2021 End: 06-20-2021 Patient encounter procedure TING JAVIER ACUPRESSURE THERAPIST-SURVEILLANCE OBSERVER [facility] Start: 04-22-2021 End: 04-22-2021 SAME DAY STAY RADHA CHOWDHURY MD [facility] Start: 04-20-2021 End: 04-20-2021 Emergency department patient visit EVENS VALENCIA MD [facility] Start: 04-11-2021 End: 04-11-2021 Patient encounter procedure KAYLEEN ALBARRAN ACUPRESSURE THERAPIST-SURVEILLANCE OBSERVER [facility] Start: 02-10-2021 End: 02-10-2021 Subsequent hospital visit by physician Roberto Smith ACUPRESSURE THERAPIST - SURVEILLANCE OBSERVER Work Phone: [facility] Comment on above: Lung nodules Start: 10-14-2020 End: 10-14-2020 Subsequent hospital visit by physician Roberto Smith ACUPRESSURE THERAPIST - SURVEILLANCE OBSERVER Work Phone: [facility] [employer] [address] Comment on above: Arrived Start: 10-10-2020 End: 10-10-2020 Subsequent hospital visit by physician Roberto Smith ACUPRESSURE THERAPIST - SURVEILLANCE OBSERVER Work Phone: [facility] Laboratory Comment on above: Rib pain on right si de; Right-sided chest wall pain Start: 08-30-2020 End: 08-30-2020 Subsequent hospital visit by physician Roberto Smith Work Phone: [facility] Radiology Comment on above: Rib pain on right si de Start: 07-17-2019 End: 07-17-2019 Subsequent hospital visit by physician Roberto Smith Work Phone: [facility] Mammography Comment on above: Arrived Start: 03-16-2019 End: 03-16-2019 Emergency department patient visit Lawrence Solitario Work Phone: [facility] ED Comment on above: Pneumonia due to org anism (Primary Dx) Start: 02-06-2019 End: 02-06-2019 Subsequent hospital visit by physician Radha Thompson Work Phone: [facility] Laboratory Procedures Date Procedure Procedure Detail Performing Clinician Start: 06-18-2023 Urine culture ADDICTION COUNSELOR-C Debby Gomez ADDICTION COUNSELOR Work Phone: Start: 06-01-2023 Transvaginal echography ADDICTION COUNSELOR-C Silas Gomez ADDICTION COUNSELOR Work Phone: Start: 04-21-2023 Transvaginal echography ADDICTION COUNSELOR-C Silas Gomez ADDICTION COUNSELOR Work Phone: Start: 11-06-2021 OPERATIVE REPORT Physic anette Generic Start: 11-06-2021 Urine test visual color cmprsn bismark Miner MD Work Phone: Start: 07-21-2021 Ct maxillofacial w/o contrast material Radha Bello [facility] Work Phone: Start: 04-22-2021 Robot assisted laparoscopic cholecystectomy TING CONCEPCION ACUPRESSURE THERAPIST-SURVEILLANCE OBSERVER Start: 11-28-2020 Diagnostic laparosco py of female pelvis KAYLEEN ALBARRAN ACUPRESSURE THERAPIST-SURVEILLANCE OBSERVER Comment on above: with excision endome triosis Start: 10-14-2020 Ct thorax w/o contra st material Roberto Smith ACUPRESSURE THERAPIST - SURVEILLANCE OBSERVER Work Phone: Start: 10-14-2020 Us transvaginal Kayleen king Shay ACUPRESSURE THERAPIST - SURVEILLANCE OBSERVER Work Phone: Start: 10-10-2020 Basic metabolic pane l calcium total Roberto Smith ACUPRESSURE THERAPIST - SURVEILLANCE OBSERVER Work Phone: Start: 08-30-2020 Radiologic exam ches t 2 views Roberto Smith Work Phone: Start: 01-08-2020 Microscopic observat ion [Identifier] in Cervix by Cyto stain Roberto Smith ACUPRESSURE THERAPIST - SURVEILLANCE OBSERVER Work Phone: Start: 07-17-2019 Us breast uni real t edelmira with image limited Roberto Smith Work Phone: Excision of lesion o f tongue KAYLEEN ALBARRAN ACUPRESSURE THERAPIST-SURVEILLANCE OBSERVER History of cholecystectomy Histo ry of cholecystectomy( Confirmed ) SILAS GOMEZ ACUPRESSURE THERAPIST-SURVEILLANCE OBSERVER Tooth extraction KAYLEEN Magallanes ACUPRESSURE THERAPIST-SURVEILLANCE OBSERVER Comment on above: wisdom teeth Plan of Treatment Date Care Activity Detail Author Start: 2046 Pneumococcal 0-64 ye ars Vaccine (2 of 2 - PPSV23) Pneumococcal 0-64 years Vaccine (2 of 2 - PPSV23) [facility] Start: 2046 Pneumococcal 0-64 ye ars Vaccine (2 of 2) Pneumococcal 0-64 years Vaccine (2 of 2) [facility] Work Phone: Start: 2031 Shingles Vaccine (1 of 2) Shingles Vaccine (1 of 2) [facility] Work Phone: Start: 12-09-2028 DTaP/Tdap/Td vaccine (3 - Td or Tdap) DTaP/Tdap/Td vaccine (3 - Td or Tdap) [facility] Start: 12-09-2028 DTaP/Tdap/Td vaccine (3 - Td) DTaP/Tdap/Td vaccine (3 - Td) [place], [place] Start: 12-09-2028 Urine microalbumin profile DTaP,Tdap,Td Vaccine (3 - Td or Tdap) [facility] Start: 07-12-2025 Lipid panel Lipids [facility] Start: 01-29-2025 Influenza vaccination Influenza Vacc ine (#1) [facility] Start: 01-30-2024 Influenza vaccination Influenza Vacc ine (#1) [facility] Start: 01-29-2023 Covid-19 Vaccine ( season) Covid-19 Vaccine ( season) [facility] Start: 01-07-2023 Screening for malign ant neoplasm of cervix [facility] Start: 02-05-2022 End: 02-05-2022 Patient encounter procedure 02/05/2022 Appointment Radiology [address] [facility] Start: 01-29-2022 Influenza vaccination S [facility] Start: 12-09-2021 Cervical cancer screen Cervical canc er screen [place], [place] Start: 07-12-2021 Lipid panel Lipid screen [facility] Start: 2021 Screening for malign ant neoplasm of breast Mammogram Screening [facility] Start: 01-29-2021 Influenza vaccination Flu vaccine (# 1) [facility] Start: 01-10-2021 End: 01-10-2021 Office Visit 01/10/2021 Office Visit Family Medicine Rodney Medellin MD [address], [address] [place], [place] [id number] [facility] Start: 10-14-2020 End: 10-14-2020 Patient encounter procedure 10/14/2020 Appointment Radiology [facility] Start: 10-14-2020 Subsequent hospital visit by physician 10/14/2020 Hospital Encounter Radiology Roberto Smith, ACUPRESSURE THERAPIST - SURVEILLANCE OBSERVER [address] [place] [address] [phone] Start: 01-09-2020 Screening for malign ant neoplasm of cervix Cervical cancer screen [facility] Work Phone: Start: 01-08-2020 End: 01-08-2020 Office Visit 01/08/2020 Office Visit Family Medicine Rodney Medellin MD [address] [place] [id number] [phone] [facility] Start: 12-10-2019 Lipid screen Lipid screen [place], [place] Start: 12-10-2019 Pneumococcal 0-64 ye ars Vaccine (2 - PCV) Pneumococcal 0-64 years Vaccine (2 - PCV) [facility] Start: 06-20-2019 End: 06-20-2019 Office Visit 06/20/2019 Office Visit Family Medicine Rodney Medellin MD [address] [place] [id number] [phone] [facility] Start: 01-29-2019 Influenza vaccination Flu vaccine (# 1) [place] Start: 2011 Screening for malign ant neoplasm of cervix HPV (without or with Pap) [facility] Start: 2008 HPV Vaccine (1 - 3-d ose SCDM series) HPV Vaccine (1 - 3-dose SCDM series) [facility] Start: 2002 Screening for malign ant neoplasm of cervix Cervical Cancer Screening [facility] Start: 2000 Hepatitis B Vaccine (1 of 3 - 19+ 3-dose series) Hepatitis B Vaccine (1 of 3 - 19+ 3-dose series) [facility] Start: 1999 Anxiety Screening Anxiety Screening [facility] Start: 1999 Depression Screening Depression Scre ening [facility] Start: 1999 HIV screening HIV Screening [facility] Start: 1997 COVID-19 Vaccine (1) COVID-19 Vaccin e (1) [facility] Work Phone: Start: 1993 COVID-19 Vaccine (1) COVID-19 Vaccin e (1) [facility] Work Phone: Start: 1993 Depression Monitoring Depression [facility] Start: 1986 COVID-19 Vaccine (1) COVID-19 Vaccin e (1) [facility] Start: 1981 COVID-19 Vaccine (#1) COVID-19 Vacci ne (#1) [facility] End: 02-10-[address] CT CHEST LOW DOSE Imaging Routine Once for 1 Occurrences starting 02/10/2021 until 02/10/2021 [facility] Work Phone: Comment on above: Once for 1 Occurrenc es starting 02/10/2021 until 02/10/[address] CT [address]ST LOW DOSE CT CHEST LOW D OSE Imaging Routine 02/10/2021 9:09 AM EDT [facility] Work Phone: End: 11-06-2021 INITIATE PACU OXYGEN THERAPY PROTOCOL Initiate PACU Oxygen Therapy Protocol Respiratory Care Routine Continuous until discontinued starting 11/06/2021 [facility] Work Phone: Comment on above: Continuous until dis continued starting 11/06/2021 End: 11-06-2021 Intermittent pulse oximetry Pulse Oximetry Spot Check Respiratory Care Routine One Time for 1 Occurrences starting 11/06/2021 until 11/06/2021 [facility] Work Phone: Comment on above: One Time for 1 Occur rences starting 11/06/2021 until 11/06/2021 End: 02-05-[address] -Abnormal Lung Screen Follow up [facility] Work Phone: Comment on above: 1 Occurrences starti ng 02/05/2022 until 02/05/2022 End: 02-06-2019 Miscellaneous Sendout 1 Miscellaneous Sendout 1 Lab Routine Once for 1 Occurrences starting 02/06/2019 until 02/06/2019 [facility] [place] Comment on above: Once for 1 Occurrenc es starting 02/06/2019 until 02/06/2019 Miscellaneous Sendout 1 Miscella neous Sendout 1 Lab Routine 02/06/2019 2:41 PM EDT [place] Nasal Cannula Oxygen Nasal Cannu la Oxygen Respiratory Care Routine As Needed until discontinued starting 11/06/2021 [facility] Work Phone: Comment on above: As Needed until disc ontinued starting 11/06/2021 Nasal Cannula Oxygen Nasal Cannu la Oxygen Respiratory Care Routine As Needed until discontinued starting 11/06/2021 [facility] Work Phone: Comment on above: As Needed until disc ontinued starting 11/06/2021 Nonrebreather mask oxygen Nonrebreather mask oxygen Respiratory Care Routine As Needed until discontinued starting 11/06/2021 [facility] Work Phone: Comment on above: As Needed until disc ontinued starting 11/06/2021 Nonrebreather mask oxygen Nonrebreather mask oxygen Respiratory Care Routine As Needed until discontinued starting 11/06/2021 [facility] Work Phone: Comment on above: As Needed until disc ontinued starting 11/06/2021 Oxygen therapy [[facility] Data Set] Initiate Oxygen Therapy Protocol Respiratory Care Routine As Needed until discontinued starting 11/06/2021 [facility] Work Phone: Comment on above: As Needed until disc ontinued starting 11/06/2021 End: 03-16-2019 Respiratory Virus PCR Panel Respiratory Virus PCR Panel Microbiology Routine One Time for 1 Occurrences starting 03/16/2019 until 03/16/2019 [facility] [place] Comment on above: One Time for 1 Occur rences starting 03/16/2019 until 03/16/2019 Respiratory Virus PC R Panel Respiratory Virus PCR Panel Microbiology STAT 03/16/2019 1:55 PM EDT [place], [place] Spirometry panel Incentive humble metry Respiratory Care Routine Q1H PRN until discontinued starting 11/06/2021 [facility] Work Phone: Comment on above: Q1H PRN until discon tinued starting 11/06/2021 End: 03-16-2019 XR CHEST STANDARD (2 VW) XR CHEST STANDARD (2 VW) Imaging STAT Once for 1 Occurrences starting 03/16/2019 until 03/16/2019 [place] Comment on above: Once for 1 Occurrenc es starting 03/16/2019 until 03/16/2019 XR CHEST STANDARD (2 VW) XR CHES T STANDARD (2 VW) Imaging STAT 03/16/2019 1:53 PM EDT [place] Immunizations Immunization Date Immunization Notes Care Provider Fa [facility] 02-22-2020 Influenza, injectabl e, Madin Delmy Canine Kidney, preservative free, quadrivalent Roberto Luis IRAHETA Work Phone: 02-22-2020 influenza virus vacc ine, unspecified formulation Adrian Jesus MD Work Phone: [facility] 02-21-2020 influenza virus vacc ine, unspecified formulation KAYLEEN ALBARRAN ACUPRESSURE THERAPIST-SURVEILLANCE OBSERVER [facility] 02-23-2019 influenza virus vacc ine, unspecified formulation KAYLEEN ALBARRAN ACUPRESSURE THERAPIST-SURVEILLANCE OBSERVER [facility] 02-23-2019 Influenza, injectabl e, Madin [place] Canine Kidney, preservative free, quadrivalent Lawrence Adusumilli [place], [place] 12-09-2018 pneumococcal polysaccharide vaccine, 23 valent [place], [place] Comment on above: Result Comment: 2020: VIS DATE: 09/21/2014 12-09-2018 tetanus toxoid, redu torsten diphtheria toxoid, and acellular pertussis vaccine, adsorbed [place], [place] Comment on above: Result Comment: 2020: VIS DATE: 07/24/2014 03-17-2018 influenza virus vacc ine, unspecified formulation [place], [place] Comment on above: Result Comment: 2020: VIS DATE: 01/04/2015 03-17-2018 Influenza, Quadv, 6 mo and older, IM (Fluzone, Flulaval) [facility], [place] 03-16-2017 influenza virus vacc ine, unspecified formulation [facility] , [place] Comment on above: Result Comment: 2020: VIS DATE: 01/04/2015 03-16-2017 Influenza, Quadv, 6 mo and older, IM (Fluzone, Flulaval) [facility] 06-05-2016 tetanus toxoid, redu torsten diphtheria toxoid, and acellular pertussis vaccine, adsorbed [facility], [place] 03-25-2016 Influenza Vaccine, unspecified formulation [facility] , [place] 03-25-2016 influenza virus vacc ine, unspecified formulation KAYLEEN ALBARRAN ACUPRESSURE THERAPIST-SURVEILLANCE OBSERVER [facility] 06-17-2015 Influenza Vaccine, unspecified formulation [facility] , [place] 06-17-2015 influenza virus vacc ine, unspecified formulation [facility] , [place] 03-27-2014 Influenza Vaccine, unspecified formulation [facility] , [place] 03-27-2014 influenza virus vacc ine, unspecified formulation KAYLEEN ALBARRAN ACUPRESSURE THERAPIST-SURVEILLANCE OBSERVER [facility] 05-25-2013 Influenza Vaccine, unspecified formulation [facility] , [place] 05-25-2013 influenza virus vacc ine, unspecified formulation KAYLEEN ALBARRAN ACUPRESSURE THERAPIST-SURVEILLANCE OBSERVER [facility] 03-26-2005 hepatitis B pediatri c vaccine KAYLEEN ALBARRAN ACUPRESSURE THERAPIST-SURVEILLANCE OBSERVER [facility] 03-26-2005 hepatitis B vaccine, pediatric or pediatric/adolescent dosage [facility], [place] 11-06-2004 hepatitis B pediatri c vaccine KAYLENE ALBARRAN ACUPRESSURE THERAPIST-SURVEILLANCE OBSERVER [facility] 11-06-2004 hepatitis B vaccine, pediatric or pediatric/adolescent dosage [place], [place] 10-02-2004 hepatitis B pediatri c vaccine KAYLEEN ALBARRAN ACUPRESSURE THERAPIST-SURVEILLANCE OBSERVER [facility] 10-02-2004 hepatitis B vaccine, pediatric or pediatric/adolescent dosage Radha [facility], [place] Payers Date Payer Category Payer Self-pay [id number] 2023 Blue Cross Blue [facility] BLUE CARD PPO OOS Member Subscriber Plan / Payer (Effective 2023-Present) Name: ROBERTO NAVA Relation to Subscriber: Spouse Name: RUBEN NAVA Date of : 1980 Address: [address] [place] [id number] Payer ID: [id number] (NAIC) Type: PPO Address: [facility] [address] [place] [id number] 2023 Unknown [id number] 2023 Unknown [id number] 2019 Unknown [id number] 2018 Unknown [id number] 2000 Unknown [id number] 1981 Unknown [id number] 627 1981 Unknown [id number]. 627 1981 Unknown [id number]. 627 1981 Unknown [id number] 627 1981 Unknown [id number]. 627 1981 Unknown [id number]. 627 Unknown [id number]. 462 Unknown [id number]. 462 Unknown [id number]. 462 Unknown [id number] 462 Social History Date Type Detail Facility Start: 05-05-2016 End: 12-09-2018 Tobacco smoking status NHIS Never smoker [place], [place] Start: 12-09-2018 End: 2020 Alcohol intake Yes [place], [place] Start: 1980 Sex Assigned At Not on file [place] Start: 07-17-2019 End: 11-06-2021 Alcohol intake Current drinker of alcohol (finding) [facility] Work Phone: Start: 05-05-2016 End: 07-31-2020 Tobacco use and exposure Never used [facility] Ahonya Phone: Start: 01-04-2020 History SDOH Alcohol Frequency 1 [facility] Work Phone: Start: 01-04-2020 History SDOH Financial 5 [facility] Work Phone: Start: 01-04-2020 History SDOH Transpo rt Med 2 [facility] Work Phone: Start: 1980 Sex Assigned At Female S LILIBETH Work Phone: Start: 10-27-2021 End: 11-06-2021 Exposure to SARS-CoV-2 (event) Not sure [facility] Work Phone: Start: 2020 End: 07-31-2020 Alcohol intake [facility] Work Phone: Sex Assigned At [facility] Start: 04-10-2021 End: 06-18-2023 Tobacco smoking status NCIS Unknown if ever smoked [facility] Start: 11-06-2021 History SDOH Alcohol Comment not currently [email or web address] Work Phone: Start: 12-23-2023 End: 12-26-2023 Alcohol intake Not Asked [facility] Start: 10-14-2015 National Score (1-10 0), lower number is lower risk Not on file [facility] Start: 08-27-2015 Sex Female (finding) [facility] Goals Date Patient Goal Desired Activity /State Comment on above: Self- Management Fiorella n: Obesity/Weight Loss Patient Stated Goal: weight loss Barriers to success: stress Plan for overcoming my barriers: pt sees a counselor. Encouraged and recommended by provider. Confidence: 12/07 Self-Management Plan: Will strive to achieve goal by 1 year Date goal set: 12/09/18 Patient given educational materials below via AVS. Provider Goal: Healthy diet and exercise. Patient received counseling about current lifestyle goal. Advised approximately 150 minutes of cardio, i.e treadmill, exercise in a week. Advised strive for 5 a total 5 servings of fruits and vegetables in a day. Advised a diet lower in carbohydrates and simple sugars. They need to watch consumption of bread, rice, pasta, potatoes, corn, soda, sweetened tea, lemonade, and all other sugar drinks. Patient given after visit summary which includes educational information on Exercise. Discussed use, benefit, and side effects of prescribed medications and barriers to medication compliance addressed, if applicable. All patient questions answered and patient voiced understanding. Patient was given a copy of this, and was advised to call if any questions. Formatting of this n ote might be different from the original. Self- Management Plan: Obesity/Weight Loss Patient Stated Goal: weight loss Barriers to success: stress Plan for overcoming my barriers: pt sees a counselor. Encouraged and recommended by provider. Confidence: 12/07 Self-Management Plan: Will strive to achieve goal by 1 year Date goal set: 12/09/18 Patient given educational materials below via AVS. Provider Goal: Healthy diet and exercise. Patient received counseling about current lifestyle goal. Advised approximately 150 minutes of cardio, i.e treadmill, exercise in a week. Advised strive for 5 a total 5 servings of fruits and vegetables in a day. Advised a diet lower in carbohydrates and simple sugars. They need to watch consumption of bread, rice, pasta, potatoes, corn, soda, sweetened tea, lemonade, and all other sugar drinks. Patient given after visit summary which includes educational information on Exercise. Discussed use, benefit, and side effects of prescribed medications and barriers to medication compliance addressed, if applicable. All patient questions answered and patient voiced understanding. Patient was given a copy of this, and was advised to call if any questions. Functional Status Date Assessment Result Facility 04-26-2022 Functional Status Independent [facility] 04-26-2022 Functional Status Standard Safet y ID band on, Allergy Band on, Call device within reach, Bed in low position, Wheels locked, Upper/Half-Length side-rails up, Phone within reach, Safety level maintained [facility] Mental Status Date Assessment Result Facility 04-26-2022 Mental Status Orientation Oriented x 4 [facility] 04-26-2022 Mental Status [facility] Clinical Notes 04-20-2021 to 01-15-2025 Adrian Jesus MD - 01/15/2025 11:35 AM EDT Note Date & Type Note Facility 01-15-2025 Note HNO ID: [id number] Author: ADRIAN JESUS MD Service: ? Author Type: Physician Type: Progress Notes Filed: 01/15/2025 12:11 Note Text: [facility] Subjective Roberto Nava is a 44 year old female. Patient presents with: Eye Problem: drainage, redness, left eye, congestion x 5 days Patient presents with illness starting 5 days ago. She has had chills, body aches, malaise, nasal congestion, nausea, diarrhea, cough. She has had eye irritation worsening since yesterday (L>R). She felt lightheaded while driving the initial day of symptoms last week. She wears contact lenses. Denies eye pain, vision change, vomiting. She has used Benadryl and Advil for symptoms. Her son is feeling sick today also. Review of Systems Objective BP 122/68 Pulse 102 Temp 36.8 ?C (98.2 ?F) Resp 16 Wt 106.8 kg (235 lb 7.2 oz) LMP 01/25/2020 (Exact Date) SpO2 96% Physical Exam Constitutional: General: She is not in acute distress. HENT: Right Ear: Tympanic membrane and ear canal normal. Left Ear: Tympanic membrane and ear canal normal. Nose: Congestion present. Right Sinus: No maxillary sinus tenderness or frontal sinus tenderness. Left Sinus: No maxillary sinus tenderness or frontal sinus tenderness. Mouth/Throat: Mouth: Mucous membranes are moist. Pharynx: Posterior oropharyngeal erythema present. No oropharyngeal exudate. Eyes: General: Right eye: No discharge. Left eye: No discharge. Extraocular Movements: Extraocular movements intact. Pupils: Pupils are equal, round, and reactive to light. Comments: Trace bilateral scleral injection Cardiovascular: Rate and Rhythm: Normal rate and regular rhythm. Heart sounds: No murmur heard. Pulmonary: Effort: No respiratory distress. Breath sounds: No wheezing, rhonchi or rales. Musculoskeletal: Cervical back: Neck supple. Lymphadenopathy: Cervical: No cervical adenopathy. Neurological: Mental Status: She is alert. {ASSESSMENT/PLAN: 1. Acute conjunctivitis of both eyes, unspecified acute conjunctivitis type - ICD9: 372.00, ICD10: H10.33 (primary diagnosis) [place] eye discussed. Infectious conjunctivitis is most commonly caused by cold viruses and is a self-limited condition which usually resolves in about a week. Bacterial conjunctivitis usually follows a similar course, but symptoms and contagiousness are responsive to antibiotics. Bacterial infection can rarely progress to more serious infection. Hand hygiene with washing or green chainer is important to reduce spread of the infection. Seek re-evaluation for high fever, increasing periocular redness/swelling, eye pain, or vision change as these can be symptoms of serious infection. - OFLOXACIN 0.3 % EYE DROPS to cover for potential contact lens associated bacterial conjunctivitis 2. Viral URI - ICD9: 465.9, ICD10: J06.9 - suspect viral URI - Supportive care treatment with rest, cold medicine, and analgesia. Adrian Jesus MD History and Record Review Systemic symptoms present included: Malaise, body Differential Diagnoses - Viral URI with conjunctivitis is more likely for the following reason(s): suggested by HANDP - Pseudomonas conjunctivitis is more likely for the following reason(s): Contact lens use Procedures [facility] 01-15-2025 History of Present illness Narrative [facility] Subjective Roberto Nava is a 44 year old female. Patient presents with: Eye Problem: drainage, redness, left eye, congestion x 5 days Patient presents with illness starting 5 days ago. She has had chills, body aches, malaise, nasal congestion, nausea, diarrhea, cough. She has had eye irritation worsening since yesterday (L>R). She felt lightheaded while driving the initial day of symptoms last week. She wears contact lenses. Denies eye pain, vision change, vomiting. She has used Benadryl and Advil for symptoms. Her son is feeling sick today also. Review of Systems Objective BP 122/68 Pulse 102 Temp 36.8 C (98.2 F) Resp 16 Wt 106.8 kg (235 lb 7.2 oz) LMP 01/25/2020 (Exact Date) SpO2 96% Physical Exam Constitutional: General: She is not in acute distress. HENT: Right Ear: Tympanic membrane and ear canal normal. Left Ear: Tympanic membrane and ear canal normal. Nose: Congestion present. Right Sinus: No maxillary sinus tenderness or frontal sinus tenderness. Left Sinus: No maxillary sinus tenderness or frontal sinus tenderness. Mouth/Throat: Mouth: Mucous membranes are moist. Pharynx: Posterior oropharyngeal erythema present. No oropharyngeal exudate. Eyes: General: Right eye: No discharge. Left eye: No discharge. Extraocular Movements: Extraocular movements intact. Pupils: Pupils are equal, round, and reactive to light. Comments: Trace bilateral scleral injection Cardiovascular: Rate and Rhythm: Normal rate and regular rhythm. Heart sounds: No murmur heard. Pulmonary: Effort: No respiratory distress. Breath sounds: No wheezing, rhonchi or rales. Musculoskeletal: Cervical back: Neck supple. Lymphadenopathy: Cervical: No cervical adenopathy. Neurological: Mental Status: She is alert. {ASSESSMENT/PLAN: 1. Acute conjunctivitis of both eyes, unspecified acute conjunctivitis type - ICD9: 372.00, ICD10: H10.33 (primary diagnosis) [place] eye discussed. Infectious conjunctivitis is most commonly caused by cold viruses and is a self-limited condition which usually resolves in about a week. Bacterial conjunctivitis usually follows a similar course, but symptoms and contagiousness are responsive to antibiotics. Bacterial infection can rarely progress to more serious infection. Hand hygiene with washing or green chainer is important to reduce spread of the infection. Seek re-evaluation for high fever, increasing periocular redness/swelling, eye pain, or vision change as these can be symptoms of serious infection. - OFLOXACIN 0.3 % EYE DROPS to cover for potential contact lens associated bacterial conjunctivitis 2. Viral URI - ICD9: 465.9, ICD10: J06.9 - suspect viral URI - Supportive care treatment with rest, cold medicine, and analgesia. Adrian Jesus MD History and Record Review Systemic symptoms present included: Malaise, body Differential Diagnoses - Viral URI with conjunctivitis is more likely for the following reason(s): suggested by H&P - Pseudomonas conjunctivitis is more likely for the following reason(s): Contact lens use Procedures documented in this encounter [facility] 06-13-2024 Note Exam Date Time Procedure Performing Provider Status 06/13/24 9:09 AM XR Chest 2 Views MICAH OCONNELL MD; Auth (Verified) [id number] ORIGINAL EXAMINATION: TWO XRAY VIEWS OF THE CHEST TECHNIQUE: CHEST AP/PA and LATERAL COMPARISON: April 26 2022 HISTORY: ORDERING SYSTEM PROVIDED HISTORY: Reason for Exam: cough productive; wheezing FINDINGS: The heart is not enlarged. The mediastinal silhouette is unremarkable. No consolidation. No pleural effusion. No pneumothorax. No vascular congestion. No aggressive osseous lesions. IMPRESSION: No acute process. I have personally reviewed the images of this examination and agree with the resident's findings and interpretation. Interpreted by: Micah Oconnell MD Preliminary Report By: Donte Gauthier MD Electronically signed By Micah Oconnell MD Dictated Date: 06/13/2024 9:18:01 AM Prelim Date: 06/13/2024 9:27:00 AM Sign Date: 06/13/2024 9:27:00 AM Ordering Provider: [facility]07-28-2024 Instructions* Patient Instructions* Jaskaran Tyler APRN.SURVEILLANCE OBSERVER - 12/26/2023 8:30 AM EDT I Feel So Sick, Don t I Need Antibiotics? Do I need antibiotics? What if my mucus is green? When germs that cause colds first infect the nose and sinuses, the nose makes clear mucus. This helps wash the germs from the nose and sinuses. After two or three days, the body's immune cells fight back, changing the mucus to a white or yellow color. As the bacteria that live in the nose grow back, they may also be found in the mucus, which changes the mucus to a greenish color. This is normal and does not mean you or your child needs antibiotics. Did you know. . . There s only a 1 in 4000 chance that an antibiotic will help most acute upper respiratory infections. But there s a 1 in 4 chance of diarrhea and a 1 in 50 chance of a skin reaction and a 1 in 1000 chance it ll cause an ER visit due to some side effect. Antibiotics can also lead to more resistant infections that are harder to treat. Bottom line: There s little to no benefit to taking antibiotics for most acute upper respiratory tract infections...and the downsides are real. Viruses cannot be treated by antibiotics. Viruses cause most upper respiratory infections, which include head colds, sore throats, bronchitis, and sinus infections. The common cold and influenza do not respond to antibiotics. Less than 10 percent of acute bronchitis cases are caused by bacteria. Most cases of acute ear infections also resolve without antibiotics. Sore throats (pharyngitis) are usually caused by viruses as well. Antibiotics are not recommended unless you have strep throat and only about 15 to 30 percent of pharyngitis cases in children and up to 10 percent of cases in adults are due to strep throat. Almost all cases of acute bacterial sinusitis resolve without antibiotics. There are a few situations in which antibiotics are needed, however. See your health care provider if you have a decreased immune system due to cancer, or if you are taking steroids, have HIV, or have had an organ transplant, or if your symptoms worsen or last longer than 2 to 3 weeks. Most often you should use the [id number] symptomatic treatment/s that your health care provider has recommended. These would include analgesic products such as acetaminophen (Tylenol ), decongestants, antihistamines, salt water gargles, drinking warm tea, and other methods to help treat the symptoms. Also remember that your best defense against getting the flu is to get a flu shot, but this does not, unfortunately, protect you against the many other viruses out in the environment that cause the other kinds of illnesses other than the actual influenza. [facility] History of Present illness Narrative* Jaskaran Tyler APRN.CNP - 12/26/2023 8:20 AM EDT Telemedicine Visit - Distance Health Virtual Visit Note Patient seen on [employer] Video Visit platform. Location of patient: [place] I have communicated my name and active licensure. The patient's identity and physical location wereverified at the time of this visit. Either the patient or their legal territory sales representative has been informed of the risks and benefits of -- and alternatives to -- treatment through a remote evaluation andconsents to proceed with the evaluation remotely. History of Present Illness: Roberto Nava is a 43 year old female with a history of bilateral eye symptoms that started 8 days ago. Pt states she was seen in [facility] 3 days ago for pink eye and was given abx drops and states the nextday the other eye became affected and she is running out drops, wanting an extension on the currentrx. Additionally, she is having sinus pressure and congestion in face and is concerns for sinus infection. Positive for: Redness, Crusting in AM, URI Symptoms, and Contact lens wear Negative for: Blurred vision, Change in vision, Double vision, Photophobia, Bumps/Styes, Foreign body sensation, Itching, Eyelid swelling, Ocular discharge none, none, Pain, Injury, and Fevers Hx of seasonal allergies: No Ocular history: wears glasses and contact lens /Lactating: : No: Lactating: No OTC remedies attempted: Ofloxacin for eyes, mucinex, netti pot and theraflu, tylenol and advil History reviewed. No pertinent past medical history. History reviewed. No pertinent surgical history. History reviewed. No pertinent family history. Social History Tobacco Use Smoking status: Never Smokeless tobacco: Never Current Outpatient Medications Medication Sig WELLBUTRIN XL 300 mg 24 hr tablet 300 mg. lisdexamfetamine (VYVANSE) 30 mg capsule Take 30 mg by mouth every morning. ofloxacin (OCUFLOX) 0.3 % ophthalmic solution Use 2 Drops in the left eye every 4 hours for 7 days. rosuvastatin (CRESTOR) 10 mg tablet Drospirenone-Ethinyl Estradiol 3-0.03 mg per tablet desloratadine (CLARINEX) 5 mg tablet azelastine (ASTELIN,ASTEPRO) 0.1% nasal spray No current facility-administered medications for this visit. ALLERGIES Allergen Reactions Bactrim [Sulfametho* Swelling Tongue swelling VIDEO EXAMINATION (Examination performed via Video enabled technology) General Appearance: Well in appearance Alert, oriented, pleasant, in NAD: Yes Ill appearing: No Lethargic appearing: No Respiratory distress: No Eyes: Normal Pupil Size EOMI Right: Conjunctival injection and Scleral injection Left: Conjunctival injection and Scleral injection ASSESSMENT/PLAN: 1. Viral URI - ICD9: 465.9, ICD10: J06.9 (primary diagnosis) - Discussed viral etiology and rationale for treatment. - Symptomatic treatment with prn analgesia - Supportive care with fluids and rest - The patient may also use OTC decongestants prn, OTC cough and cold meds as needed, and nasal saline gtts and suction prn. - Follow up in 3-5 days with PCP if symptoms persist or sooner if worsening of symptoms 2. Other conjunctivitis of both eyes - ICD9: 372.39, ICD10: H10.89 - Hard to determine if eyes are bacterial based on presentation today as pt has been instilling abxdrops- would say like viral conjunctivitis overall; however, will provide a rx for the abx drops but if not resolving would stop as eye symptoms are likely r/t viral sinus symptoms - see medication orders - course and contagiousness issues discussed, including hand washing. - Instructed to call if high fever, development of periorbital redness or swelling, eye pain, visual changes, concerns or if symptoms persist. - OFLOXACIN 0.3 % EYE DROPS All questions answered Follow up in person in 3-5 days if symptoms do not improve or earlier for worsening symptoms Needs in person evaluation if: develops high fever, develops periorbital redness or swelling, eye pain, visual changes, concerns or if symptoms persist Jaskaran Tyler APRN.SURVEILLANCE OBSERVER [facility] History of Present illness Narrative* Adrian Jesus MD - 12/23/2023 8:41 AM EDT Patient presents with: Eye Problem: Possible pink eye in left eye x 6 days HPI: Feeling sick with URI for 6 days. Left eye irritation started last night. Positive symptoms: Cough, Sore throat, Earache, Nasal Congestion, Rhinorrhea, Body Aches, left eye crust/irritation/redness, Negative symptoms: Fever, Vomiting, Diarrhea, OTC: Mucinex, neti pot Wears contact lenses. Home COVID test negative 3 days ago. MEDICATIONS: Current Outpatient Medications Medication Sig WELLBUTRIN XL 300 mg 24 hr tablet 300 mg. lisdexamfetamine (VYVANSE) 30 mg capsule Take 30 mg by mouth every morning. rosuvastatin (CRESTOR) 10 mg tablet Drospirenone-Ethinyl Estradiol 3-0.03 mg per tablet desloratadine (CLARINEX) 5 mg tablet azelastine (ASTELIN,ASTEPRO) 0.1% nasal spray No current facility-administered medications for this visit. ALLERGIES: ALLERGIES Allergen Reactions Bactrim [Sulfametho* Swelling Tongue swelling VITALS: BP 130/90 Pulse 105 Temp 36.9 C (98.4 F) Resp 21 Wt 102.1 kg (225 lb 1.4 oz) LMP 01/25/2020 (Exact Date) SpO2 97% PHYSICAL EXAM: GEN: mildly ill appearing HEENT: PERRL, EOMI, right conjunctiva clear, mild left scleral injection Ears: canals clear; no TM tubes visualized. TMs without erythema, bulge, or effusion Sinuses: non-tender frontal sinus, non-tender maxillary sinuses Throat: moist mucous membranes, mild erythema, no exudate Neck: supple, no thyromegaly, no lymphadenopathy HEART: regular rate and rhythm, no murmurs LUNGS: clear to auscultation, no wheezes or crackles, no increased WOB ASSESSMENT/PLAN: 1. Acute conjunctivitis of left eye, unspecified acute conjunctivitis type - ICD9: 372.00, ICD10: H10.32 (primary diagnosis) Viral vs bacterial [place] eye. Infectious conjunctivitis is most commonly caused by cold viruses and is a self-limited condition which usually resolves in about a week. Bacterial conjunctivitis usually follows a similar course, but symptoms and contagiousness are responsive to antibiotics. Bacterial infection can rarely progress to more serious infection. Hand hygiene with washing or green chainer isimportant to reduce spread of the infection. Seek re-evaluation for high fever, increasing periocular redness/swelling, eye pain, or vision change as these can be symptoms of serious infection. Cover for pseudomonas - OFLOXACIN 0.3 % EYE DROPS 2. URI, acute - ICD9: 465.9, ICD10: J06.9 Adrian Jesus MD [facility]. MICRO - Microbiology PROCEDURE: Urine Culture [*1] [...] Locations *1: This test was performed at: [facility], [address] [place] [address], [address]- , [facility] ([place])10-12-2022 Note ORIGINAL FROM: [facility] [address] [place], [place] [address] PROCEDURE FOR: ROBERTO NAVA [address] [place] [address] Home: PID#: [id number] Exam#: [id number] : 1980 Age: 42 TO: SILAS GOMEZ APRN [facility] [address] [address] Fax: NO FAX EXAMINATION: ULTRASOUND OF THE [...] Provider: SILAS GOMEZ CLINICAL: BILATERAL MAMMOGRAPHIC DENSITIES. Coordinator Integrated Marketing: VIJAYA JOHNSON RT(R) RDMS letter sent: Normal BI-RADS 1 and 2 Ultrasound BI-RADS: 2 Benign [facility]05-15-2023 Note ORIGINAL FROM: [place] [address] [place], [place] [address] PROCEDURE FOR: ROBERTO NAVA [address] [place] [address] Home: PID#: [id number] Exam#: [id number] : 1980 Age: 42 TO: SILAS GOMEZ ACUPRESSURE THERAPIST SURVEILLANCE OBSERVER [address] [place] [address] Fax: NO FAX EXAMINATION: ULTRASOUND OF THE [...] Provider: SILAS GOMEZ CLINICAL: BILATERAL MAMMOGRAPHIC DENSITIES. Coordinator Integrated Marketing: VIJAYA MORRIS(R) RDMS letter sent: Normal BI-RADS 1 and 2 Ultrasound BI-RADS: 2 [facility]11-27-2022 Hospital Discharge instructions Patient Education 04/26/2022 02:25:47 [...] the signs of a serious problem take moretime to appear. Many problems not related to [...] Swelling, pain or redness in one leg 9968-0832 [employer]. [address] [place] [address]. All rights reserved. This information is not intended as a substitute for professional medical care. Always follow yourhealthcare professional's instructions. Follow Up Care 04/26/2022 00:35:01 With:SILAS GOMEZ Address: [address] [place] [phone]- [phone] When:2-4 days [facility] 11-27-2022 Note Discharge Instructions Thank you for allowing [facility] to assist you with your healthcare needs. The following is importantdischarge information regarding your hospital visit. Diagnosis from Today's Visit Chest pain Right sided Chest pain with deep breathing What to Do Next Instructions from Your Care Team No qualifying data available. Post Acute Orders No qualifying data available. You Need to Schedule the Following Appointments Follow Up with SILAS GOMEZ When Within 2-4 days Where: [address] [place] [phone]- [phone] Allergies Bactrim (Tongue swelling) seasonal enviromental (typical) Medications Please ask your primary doctor or pharmacist before taking any other medication not listed, including over the counter drugs, herbal medications, vitamins and or supplements as they may interact withur home medications. What How Much When Why [...] the signs of a serious problem take moretime to appear. Many problems not related to [...] Swelling, pain or redness in one leg 8950-7926 [employer]. [address] [place] [address], [place] [address]. All rights reserved. This information is not intended as a substitute for professional medical care. Always follow yourhealthcare professional's instructions. Additional Information VACCINATE! IT SAVES LIVES! Members of the community who have not yet received the COVID-19 vaccine and would like to receive it can visit one of [facility] vaccine clinics. There are many vaccine clinic locations within the [facility]. For locations and available times, please visit [email or web address]. It is important to note that some COVID mobile vaccine clinics are held outdoors and may be canceled in rainy orstormy conditions. To learn more about pediatric vaccinations (ages 5-11), we invite you to visit the [facility] webpage. [email or web address] [email or web address] learn more about the COVID-19 vaccine, we invite you to visit the [facility] website for a list of frequently asked questions. [email or web address] [facility] [employer] Patient Portal Access Instructions: Stay connected with your healthcare team and access your personal medical information anytime with the [facility] [employer] Patient Portal. If you would like a full copy of your medical records please contact the [facility] Medical Records Department Wednesday through Wednesday between 8a.m. and 4:30p.m. Please follow the directions below to access the portal: 1.Access the email account you provided upon registration to the hospital.2.Look for an invitation email from [facility].3.Open the email and access the invitation link: Accept Invitation to [employer]4.Fill in the required linder to create your account. Sign into [email or web address] with your username and password that you [...] you will allow to register on the [facility] [employer] Patient Portal for access to your information. You can also access the [employer] Patient Portal on the [employer]. Simply click on Health Records under [place] and then click on the [employer] logo. HOW TO SAFELY DISPOSE OF PRESCRIPTION MEDICATIONS Please use one of the following methods to safely dispose of your unused medications. 1.Use a drug disposal kit: the drug disposal pouch allows you to safely discard your old and unuseddrugs. Ask your nurse to give you one when you are discharged.2.Visit a local take-back location: Many local pharmacies and police departments have programs that collect old and unwanted prescriptiondrugs. Call your local pharmacy or go to http://Workday.[employer]/0Q7Dq4s to find one close to you.3.Make use of household items: Use cat litter or old coffee grounds to dispose medications if other options arenot available. Mix your drugs with these household products, seal them in an airtight container andthrow it into the garbage. Call [facility]: [phone] to be sure your drugs can be [...] drowsiness, such as benzodiazepines, also known as benzos,including diazepam and alprazolam, muscle relaxants or sleep aids. Never sell or share prescriptionopioids. This is illegal. Store opioids in a secure place and out of reach of others (including children, family, friends and visitors). The last page(s) of this document has been signed and retained as a CHART COPY Signatures Patient Education Materials Chest Pain, Uncertain Cause Medication Leaflets My discharge plan and instructions have been reviewed and explained to me and IELIJAH ROBERTO M understand my current condition and have read and understand these discharge instructions. I have received a written copy of the plan/instructions. If I have questions, I am aware that I should contact my d octor. 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 Denies pain and nausea. Drinking pop and ice chips. * Hilda Reyes RN - 11/06/2021 10:57 AM EDT Received patient from OR coughing shaking and complaining of nausea. Report received and assessmentcompleted. Belongings with patient. * Radha Thompson DO - 11/06/2021 9:30 AM EDT Interval History and Physical I have interviewed [...] C) (Temporal) SpO2 97% documented in this [facility] Work Phone: 1(911) 914-896005-26-2022 Hospital Discharge instructions* Instructions* Radha Thompson DO - 11/06/2021 Nasal Surgery [...] 4. Use a saline nasal spray (ex; [place], [place], Afrin Non-Medicated, or Manuel- Synephrine Nasal) 2 to 3 sprays each nostril, [...] guaze to the nasal tip as a drippad. 7. You may have received a nasal [...] our office at any time. OFFICE NUMBER: [phone] documented in this [facility] Work Phone: 1(270) 246-612311-23-2021 Hospital Discharge instructions Patient Education 04/22/2021 19:22:49 1-[facility] Discharge Instructions Template (02/2018)(CUSTOM) [facility] SAME DAY SURGERY DISCHARGE INSTRUCTIONS PLEASE FOLLOW [...] verbal instructions provided to you by Dr. Chowdhury.__ BATHING/SHOWERING: ___ Sponge bathe until office visit. [...] us better serve our patients. Form: 1522 (56456) R: 09/06 Follow Up Care 04/21/2021 16:34:08 With:RADHA CHOWDHURY MD, Surgery Address: [phone] When: Unknown Comments:Follow-up as scheduled [facility] 11-21-2021 Hospital Discharge instructions Patient Education 04/20/2021 12:46:19 Flank Pain, Uncertain Cause Flank Pain, Uncertain Cause The flank is the area between your upper abdomen and your back. Pain there is often caused by a problem with your kidneys. It might be a kidney infection or a kidney stone. Other causes of flank paininclude spinal arthritis, a pinched nerve from a back injury, or a back muscle strain or spasm. The cause of your flank pain is not certain. You may need other tests. Home care Follow these tips when caring for yourself at home: You may use acetaminophen or ibuprofen to control pain, unless your health care provider prescribedanother medicine. If you have chronic liver or [...] You might find that alternating ice and heatworks well. Use the method that feels the [...] worse Numbness or weakness in a leg 8801-8486 [employer]. [address] [place] [address]. All rights reserved. This information is not intended as a substitute for professional medical care. Always follow yourhealthcare professional's instructions. Follow Up Care 04/20/2021 10:41:10 With:RADHA CHOWDHURY MD, Surgery Address: [phone] When: Unknown Comments:as scheduled , call wednesday. [facility] Evaluation + Plan note Future Appointments Appointment Date:04/14/2021 01:00:00 PM Scheduled Provider:SILAS GOMEZ Location:[facility] Appointment Type:PC OV ED Follow Up Appointment Date:04/14/2021 05:30:00 PM [place] [id number] Location:[facility] Appointment Type:PT Outpatient Evaluation Appointment Date:05/21/2021 09:00:00 AM Scheduled Provider:SILAS GOMEZ Location:[facility] Appointment Type:PC Wellness Annual Diagnostic Tests Pending * Estradiol Level 04/11/21 * Progesterone Level 04/11/21 * Testosterone Level Total 04/11/21 [facility] Evaluation + Plan note Future Appointments Appointment Date:04/28/2021 08:00:00 AM [place]uled [place] [address] Location:[facility] Appointment Type:PT Treatment - [place] Appointment Date:05/12/2021 05:00:00 PM Scheduled Provider:[place] [address] Location:[facility] Appointment Type:PT Treatment - [place] Appointment Date:05/21/2021 09:00:00 AM Scheduled Provider:SILAS GOMEZ Location:[facility] Appointment Type:PC Wellness Annual Appointment Date:05/26/2021 09:00:00 AM [place] [address] Location:[facility] Appointment Type:PT Treatment [facility] Future Scheduled Tests Radiology* NM Hepatobiliary Duct System Imaging 04/14/21 [facility] IndiaMARTaluation + Plan note Future Appointments Appointment Date:06/23/2021 05:00:00 PM [place]uled Provider:[place] [address] Location:[facility] Appointment Type:[facility] Appointment Date:07/18/2021 09:30:00 AM Scheduled Provider:SILAS GOMEZ APRN-RADHA Location:[facility] Appointment Type:PC Wellness Female Future Scheduled Tests Laboratory* Lipid Profile 06/16/21 Radiology* NM Hepatobiliary Duct System Imaging 04/14/21 [facility] Evaluation + Plan note Future Appointments Appointment Date:10/28/2021 04:30:00 PM Scheduled Provider:SILAS GOMEZ Location:[facility] Appointment Type:PC OV Follow Up Future Scheduled Tests Laboratory* Glucose Tolerance Test 4 Hour (AO) 07/18/21 Radiology* NM Hepatobiliary Duct System Imaging 04/14/21 [facility] Evaluation + Plan note Future Appointments Appointment Date:12/16/2021 09:00:00 AM Scheduled Provider:SILAS GOEMZ Location:[facility] Appointment Type:PC OV Follow Up Future Scheduled Tests Laboratory* Glucose Tolerance Test 4 Hour (AO) 07/18/21 * Lipid Profile 12/15/21 Radiology* NM Hepatobiliary Duct System Imaging 04/14/21 [facility] Evaluation + Plan note Future Appointments Appointment Date:07/20/2022 09:00:00 AM Scheduled Provider:SILAS GOMEZ Location:[facility] Appointment Type:PC OV Controlled Medication Future Scheduled Tests Laboratory* Glucose Tolerance Test 4 Hour (AO) 07/18/21 * Lipid Profile 12/15/21 [facility] Evaluation + Plan note Future Appointments Appointment Date:01/01/2023 07:00:00 AM Scheduled Provider:SILAS GOMEZ Location:[facility] Appointment Type:PC OV Follow Up Future Scheduled Tests Laboratory* Lipid Profile 12/15/21 [facility] Evaluation + Plan note Future Appointments Appointment Date:06/14/2023 11:00:00 AM Scheduled Provider:GIOVANNI MALDONADO DO [facility] Type:PC Wellness Annual Future Scheduled Tests Laboratory* A1C Hemoglobin 03/10/23 * Complete Blood Count 03/10/23 * Lipid Profile 03/10/23 * Hepatitis C Antibody IgG 03/10/23 * Complete Metabolic Panel 03/10/23 [facility] Evaluation + Plan note Future Appointments Appointment Date:02/24/2024 11:00:00 AM Scheduled Provider:GIOVANNI MALDONADO DO [facility] Type:PC OV Future Scheduled Tests Laboratory* A1C Hemoglobin 03/10/23 * Complete Blood Count 03/10/23 * Lipid Profile 03/10/23 * Hepatitis C Antibody IgG 03/10/23 * Complete Metabolic Panel 03/10/23 [facility] Evaluation + Plan note Future Appointments Appointment Date:08/25/2024 10:00:00 AM Scheduled Provider:GIOVANNI MALDONADO DO Location:[facility] Appointment Type:PC OV [facility] evaluation note* Diagnosis Rib pain on right side Chest pain, unspecified Right-sided chest wall pain Painful respiration documented in this encounter [facility] Work Phone: Evaluation note* Diagnosis Lung nodules Other nonspecific abnormal finding of lung field documented in this encounter [email or web address] Work Phone: Evaluation noteNo assessment information available [facility] Work Phone: evaluation note* Diagnosis Lung nodules Other nonspecific abnormal finding of lung field documented in this encounter [facility] Work Phone: evaluation note* Diagnosis Onset Date Resolution Status Encounter for well woman exa m with routine gynecological exam acute Endometriosis acute [facility] Work Phone: Evaluation note* Diagnosis Onset Date Resolution Status Encounter for well woman exa m with routine gynecological exam acute Endometriosis acute Cyst of left ovary acute Endometriosis acute UTI (urinary tract infection) acute [facility] Work Phone: Evaluation note* Diagnosis Acute conjunctivitis of left eye, unspecified acute conjunctivitis type- Primary URI, acute Acute upper respiratory infections of unspecified site documented in this encounter [facility] note* Diagnosis Viral URI- Primary Acute upper respiratory infections of unspecified site Other conjunctivitis of both eyes documented in this encounter [facility] note* Diagnosis Acute conjunctivitis of both eyes, unspecified acute conjunctivitis type- Primary Viral URI Acute upper respiratory infections of unspecified site documented in this encounter [facility] course Narrative No data available for this section [facility] Hospital Discharge instructions No data available for this section [facility] Progress note No data available for this section [facility] Advance Directives No Advanced Directives Records FoundDocuments on File Type Date Recorded 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 Advance Directives and Livin g Will Advance Directives and Livin g Will 09/21/2016 2:32 PM Power of Chore Worker Latest Code Status on File Code Status Date Activated Date Inactivated Comments Full Code 09/17/2016 11:17 AM 09/17/2016 6:29 PM Documents on File Type Date Recorded 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 ACP-Advance Directive ACP-Advance Directive 09/21/2016 2:32 PM ACP-Power of Chore Worker Documents on File Type Date Recorded 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 ACP-Advance Directive ACP-Power of Chore Worker ACP-Advance Directive 09/21/2016 2:32 PM Advance Directive Response Recorded Date/ Time Living Will Yes April 10 8:04am Power of Chore Worker Yes April 10, 2021 8:04am Latest Code Status on File Code Status Date Activated Date Inactivated Comments Full Code 11/06/2021 7:47 AM Full Code 09/17/2016 11:17 AM 09/17/2016 6:29 PM Documents on File Type Date Recorded 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 * Pneumonia (Lithuanian) documented in this encounter Assessments Diagnosis Pneumonia due to organism- Primary Pneumonia due to other specified organism Diagnosis Rib pain on right side Chest pain, unspecified Summary Purpose Family History No Family History Records Found Relationship Condition Age at Onset Recorded Date/T edelmira mother Malignant neoplasm of breast Unknown Malignant neoplasm of uterus Unknown aunt Malignant neoplasm of breast Unknown father Hypertension Unknown High blood cholesterol Unknown Chief Complaint and Reason for Visit Chief Complaint SEE ORDER Chief Complaint DYSPHONIA/RX HERE Chief Complaint Annual (CARE REP) , bc co nsult. pt interested in iud Endometriosis, unspecified Reason for Visit Encounter for well w lauren exam with routine gynecological exam Endometriosis Chief Complaint Annual (CARE REP) , bc co nsult. pt interested in iud Endometriosis, unspecified Unspecified ovarian cyst, left side Reason for Visit Encounter for well w lauren exam with routine gynecological exam Endometriosis Chief Complaint Annual (CARE REP) , bc co nsult. pt interested in iud Endometriosis, unspecified Unspecified ovarian cyst, left side 3 M FU Reason for Visit Encounter for well w lauren exam with routine gynecological exam Endometriosis Cyst of left ovary Endometriosis UTI (urinary tract infection) Reason for Referral Specialty Diagnoses / Procedures Referred By Contpedro t Referred To Contact Radiology Diagnoses Lung nodules Procedures Low Dose Chest CT -Abnormal Lung Screen Follow up Roberto Smith S, ACUPRESSURE THERAPIST - SURVEILLANCE OBSERVER [address] [place] [address] Referral ID Status Reason Start Date Expiration Date Visits Re quested Visits Authorized [id number] Open 02/11/2022 02/11/2023 1 1 Additional Source Comments Reason for Visit (unrecogniz ed section and content) Reason Comments Shortness of Breath Reason Comments Eye Problem Possible pink eye in left eye x 6 days Reason Comments Sinus Problem Eye problem Reason Comments Eye Problem drainage, redness, l eft eye, congestion x 5 days Care Teams (unrecognized sec tion and content) Police Inspector Relationship Specialty Start Date End Date Rodney Medellin MD [address], [place] [address] PCP - General Family Medicine 06/17/15 Team Status: Active Member Role Status Dates Silas Gomez ADDICTION COUNSELOR, ADDICTION COUNSELOR-C Primary Care Provider Active Team Status: Inactive Member Role Status Dates Silas Gomez ADDICTION COUNSELOR, ADDICTION COUNSELOR-C Primary Care Provider Active Dr. Radha Thompson DO Attending Provider, Refer ring Provider Active Team Status: Inactive Member Role Status Dates Silas Gomez ADDICTION COUNSELOR, ADDICTION COUNSELOR-C Primary Care Provider, Referr ing Provider Active Flaquita Higuera CNM Attending Provider Active Team Status: Inactive Member Role Status Dates Silas Gomez ADDICTION COUNSELOR, ADDICTION COUNSELOR-C Primary Care Provider Active Flaquita Higuera CNM Attending Provider, Referring Pro vider Active Team Status: Active Member Role Status Dates Dr. Giovanni Maldonado DO Primary Care Provider Active Team Status: Inactive Member Role Status Dates Dr. Giovanni Maldonado DO Primary Care Prov ider, Attending Provider, Referring Provider Active Team Status: Inactive Member Role Status Dates Silas Gomez ADDICTION COUNSELOR, ADDICTION COUNSELOR-C Referring Provider Active Flaquita Higuera CNM Attending Provider Active Dr. Giovanni Maldonado DO Primary Care Provider Active Team Status: Inactive Member Role Status Dates Dr. Giovanni Maldonado DO Primary Care Provider Active Flaquita Higuera CNM Attending Provider, Referring Pro vider Active Police Inspector Relationship Specialty Start Date End Date Giovanni Maldonado IV, DO [address] [place] [address] PCP - General Family Medicine 12/23/23 Police Inspector Relationship Specialty Start Date End Date Giovanni Maldonado IV, DO [address] [place] [address] PCP - General Family Medicine 12/23/23 Police Inspector Relationship Specialty Start Date End Date Giovanni Maldonado IV, DO [address] [place] [address] PCP - General Family Medicine 12/23/23 INFORMATION SOURCE (unrecogn ized section and content) DATE CREATED AUTHOR 09/17/2021 [facility] DATE CREATED AUTHOR AUTHOR'S ORGANIZ ATION 02/07/2022 [facility] DATE CREATED AUTHOR AUTHOR'S ORGANIZ ATION 12/01/2023 [facility] ([place]) DATE CREATED AUTHOR AUTHOR'S ORGANIZ ATION 06/23/2024 [facility] DATE CREATED AUTHOR AUTHOR'S ORGANIZ ATION 10/27/2024 [facility] DATE CREATED AUTHOR AUTHOR'S ORGANIZ ATION 01/16/2025 [facility] Goals (unrecognized section and content) Goals may be documented in a n alternate section Scheduled Active and Recently Administ ered Medications (unrecognized section and content) Medication Order 11/04/2021 11/05/2021 11/06/2021 acetaminophen (TYLENOL) tablet 1,000 mg (COMPLETED) 1,000 mg, Oral, ONCE, 1 dose, On Jillian 11/06/21 at 0815, Maximum dose of acetaminophen is 4000 mg from all sources in 24 hours. Do not administer if patient has taken tylenol <4 hours earlier. Do not give if contraindicated ie. patient has active liver disease or cirrhosis., Pre-op (day of surgery) 08 (Given - Provid er: Yadira Cuadra) aprepitant (EMEND) capsule 40 mg (COMPLETED) 40 mg, Oral, ONCE, 1 dose, On Jillian 11/06/21 at 0845, Pre-op (day of surgery) 823 (Given - Provid er: Yadira Cuadra) famotidine (PEPCID) tablet 20 mg (COMPLETED) 20 mg, Oral, ONCE, 1 dose, On Jillian 11/06/21 at 0815, Pre-op (day of surgery) 08 (Given - Provid er: Yadira Cuadra) LORazepam (ATIVAN) injection 0.5 mg 0.5 mg, IntraVENous, ONCE, 1 dose, On Jillian 11/06/21 at 1115, PACU only 1115 (Due) oxymetazoline (AFRIN) 0.05 % nasal spray 2 spray (COMPLETED) 2 spray, Each Nostril, SURGERY CONSULTANT TO O.R., 1 dose, On Jillian 11/06/21 at 0815, Pre-op (day of surgery) 0826 (Given - Provid er: Yadira Cuadra) sodium chloride flush 0.9 % injection 5-40 mL 5-40 mL, IntraVENous, EVERY 12 HOURS SCHEDULED (2 times per day), First dose on Jillian 11/06/21 at 0900, Until Discontinued, For Line Patency: Peripheral IV = 5 [...] = 20 mL/lumen, Pre-op (day of surgery) 0900 (Due)2100 (Due) sodium chloride flush 0.9 % injection 5-40 mL 5-40 mL, IntraVENous, EVERY 12 HOURS SCHEDULED (2 times per day), First dose on Jillian 11/06/21 at 1115, Until Discontinued, For Line Patency: Peripheral IV = 5 [...] Central Line = 20 mL/lumen, PACU only 1115 (Due)2100 (Due) Continuous Medication Order 11/04/2021 11/05/2021 11/06/2021 lactated [...] on Jillian 11/06/21 at 1056, Until Discontinued, Pain Moderate (4-6), [...] on Jillian 11/06/21 at 1056, Until Discontinued, Pain Severe (7-10), [...] and content) Care Team Personnel Name: RADHA CHOWDHURY MD Position: P4 Physician - General Surgery Med Service: Amberly Thompson M.D. Member Role: Surgeon Address: Address: [address] [facility] [place] [address]- Name: SILAS GOMEZ Position: P4 Advanced Practice Nurse Med Service: Active Provider Member Role: Primary Care Physician Address: Address: [address] [place] [address]- Care Team Related Persons Name: RADHA NAVA Name: SATINDER NAVA Address: [facility] Address: Home [address], [place] [id number] [place] Address: Temporary [address], [place] [id number] Care Team Personnel Name: RADHA CHOWDHURY MD Position: P4 Physician - General Surgery Member Role: Surgeon Address: Address: [address] [facility] [place] [address]- [place] Name: SILAS GOMEZ Position: P4 Advanced Practice Nurse Member Role: Primary Care Physician Address: Address: [address] [place] [phone] [place] Name: AZRA DIAZ MD Position: ED Physician Member Role: Attending Physician Address: Address: [facility] [address] [place] [address]- Care Team Related Persons Name: RADHA NAVA Name: SATINDER NAVA Address: [facility] Address: Home [address], [place] [id number] [place] Address: Temporary [address], [place] [id number] Source Comments (unrecognize d section and content) In the event this informatio n is protected by the Federal Confidentiality of Alcohol and Drug Abuse Patient Records regulations: The Federal rules restrict any use of the information to criminally investigate or prosecute any alcohol or drug abuse patient.[facility] the event this information is protected by the Federal Confidentiality of Alcohol and Drug Abuse Patient Records regulations: The Federal rules restrict any use of the information to criminally investigate or prosecute any alcohol or drug abuse patient.[facility] the event this information is protected by the Federal Confidentiality of Alcohol and Drug Abuse Patient Records regulations: The Federal rules restrict any use of the information to criminally investigate or prosecute any alcohol or drug abuse patient.[facility] FOR RECORDS PERTAINING TO PATIENTS WHO ARE [...] BE BASED ON THE PRIMARY CLINICAL RECORDS. [facility] [email or web address] [facility]. provides no warranty or guarantee of the accuracy or completeness of information in this document.
== END | disposition home or self-care (01) ==
LOC: OPBI 08:23
PROVIDERS: PCP Student in an Organized Health Care Education/Training Program; Referring Provider Advanced Practice Midwife; Visit Provider Advanced Practice Midwife
DX: Z12.31 Encounter for screening mammogram for malignant neoplasm of breast (principal)
CPT/HCPCS: 77063; 77067